=== PATIENT | female | born 1945 | race Caucasian/White ===

== ENCOUNTER 2018-10-29 21:04 | Inpatient (IN) ==
[2018-10-29] MEDS ORDERED: ASPIRIN PR ONE (21:21)
[2018-10-29] MEDS ORDERED: ASPIRIN PO ONE (21:21)
--- NOTE | 2018-10-29 21:41 | Diag Imaging Result Doc PS360 ---
EXAM: CHEST-2 VIEWS HISTORY: SOB TECHNIQUE: Chest, two views COMPARISON: 08/21/2017 FINDINGS: The lungs are hyperexpanded. The heart is mildly enlarged. No pulmonary edema. Small infiltrate and atelectasis in the left base with a tiny effusion. IMPRESSION: Cardiomegaly with atelectasis and a tiny infiltrate in the left base. Electronically signed by Carmelo Cole 10/29/2018 9:39 PM
[2018-10-29 22:45] LABS: BASO# 0.03 X1000 (0.0-0.2); BASO% 0.5 % (0.0-0.8); EOS# 0.07 X1000 (0.0-0.7); EOS% 1.2 % (0.0-10.0); HEMATOCRIT 39.2 % (37.0-47.0); LYMPH% 19.9 % (20.5-51.1); MCH 32.2 PG (27-31); MCHC 33.2 g/dL (33-37); MONO# 0.74 X1000 (0.11-0.59); MONO% 12.3 % (1.7-9.3); MPV 10.7 FL (7.4-10.4); NEUT% 66.1 % (42.2-75.2); PLT 307 X1000 (130-400); RBC 4.04 XMIL (4.2-5.4); RDW 15.9 % (11.5-14.5); WBC 6.04 X1000 (4.8-10.8)
[2018-10-29 22:54] LABS: INR 1.1; PROTIME 15.1 Seconds (11.0-16.0)
[2018-10-29 22:55] LABS: PTT 34.1 Seconds (22.3-41.8)
[2018-10-29 23:06] LABS: AGAP 12; ALB/GLOB RATIO 1.9; ALBUMIN 4.2 g/dL (3.5-5.0); ALKALINE PHOSPHATASE 102 U/L (32-104); BUN 16 mg/dL (8-22); CALCIUM 9.4 mg/dL (8.8-10.2); CHLORIDE 106 mmol/L (98-107); CK PROFILE 54 U/L (24-173); COSMO 288; CREATININE 0.6 mg/dL (0.5-0.9); ESTIMATED GFR > 60; GLUCOSE 136 mg/dL (70-104); GOT 21 U/L (10-30); GPT 27 U/L (10-36); POTASSIUM 5.1 mmol/L (3.5-5.1); SODIUM 143 mmol/L (136-145); TCO2 25 mmol/L (25-35); TOTAL BILIRUBIN 0.35 mg/dL (0.20-1.00); TOTAL PROTEIN 6.4 g/dL (6.3-8.3)
[2018-10-30] MEDS ORDERED: LASIX IV ONE (00:11)
--- NOTE | 2018-10-30 00:12 | PROVIDER DOCUMENTATION ---
This chart was entered by Cara Jama Scribe, acting as scribe for Ziggy Clayton MD. HPI-Respiratory General - General Chief Complaint: Shortness of Breath Stated Complaint: sob Time Seen by Provider: 10/29/18 21:33 Source: patient Allergies/Adverse Reactions: Patient Allergies Allergy/AdvReac Type Severity Reaction Status Date / Time No Known Allergies Allergy Verified 10/29/18 21:20 Home Medications: Home Medication List Medication Instructions Recorded Confirmed Last Taken Type Lisinopril 1 tab PO DAILY 10/29/18 10/29/18 Unknown History Metformin HCl 1 tab PO BID 10/29/18 10/29/18 Unknown History Pravastatin Sodium 1 tab PO QPM 10/29/18 10/29/18 Unknown History Sumatriptan [Imitrex] 1 tab PO DIRECTED PRN 10/29/18 10/29/18 Unknown History Venlafaxine HCl [Venlafaxine HCl 1 cap PO DAILY 10/29/18 10/29/18 Unknown History ER] Verapamil HCl [Verapamil Sr] 1 cap PO BID 10/29/18 10/30/18 Unknown History Aspirin 1 tab PO DAILY 10/30/18 10/30/18 Unknown History Buspirone HCl 1 tab PO BID 10/30/18 10/30/18 Unknown History Promethazine [Phenergan] 1 tab PO Q4-6H PRN PRN 10/30/18 10/30/18 Unknown History Trazodone [Desyrel] 1 tab PO QHS 10/30/18 10/30/18 Unknown History Tretinoin 1 applicatn TOP QHS PRN 10/30/18 10/30/18 Unknown History - History of Present Illness-Resp Nature of Presenting Problem: pt is a 73 yr old female presenting via EMS with 3 day complaint of worsening shortness of breath and bilateral pedal edema. pt reports she was seen by PCP 1 week ago and told to follow up with cardiology, cardiology appointment scheduled for end of month, unable to get in sooner, pt reports over last 3 days she has increasing difficulty breathing, is unable to lie flat, minimal exertion causes increases shortness of breath. pt denies chest pain, fever/chills, admits fatigue Quality of Pain: reports: none Severity in ED: reports: severe Onset/Duration: reports: 1 week ago Timing: reports: getting worse (x 3 days) Exposure: reports: unknown cause Cough Quality/Degree: reports: moderate, productive cough Episode Frequency: rare episodes Current Respiratory Medication Therapy: Initiated none Modifying Factors: improves with: exertion (worsens), coughing (worsens), lying down (worsens), rest (no change), sitting upright (improves) Associated Symptoms: reports: cough, shortness of breath, wheezing. denies: chest pain/soreness, fever/chills, heart racing, hurts to breathe Similar Symptoms Previously?: Yes Recently seen or treated by another doctor?: Yes (seen by PCP 1 week ago for similar) Review of Systems - Adult - REVIEW OF SYSTEMS - ADULT Constitutional: denies: fever, fatique Eyes: denies: blurred vision, double vision Ears, Nose, Mouth & Throat: reports: no symptoms reported Cardiovascular: reports: edema, orthopnea. denies: chest pain, palpitations, syncope Respiratory: reports: cough, dyspnea on exertion, shortness of breath Gastrointestinal: reports: no symptoms reported Genitourinary: reports: no symptoms reported Musculoskeletal: reports: no symptoms reported Integumentary: reports: no symptoms reported Neurological: reports: no symptoms reported Psychiatric: reports: no symptoms reported Endocrine: reports: no symptoms reported Hematologic/Lymphatic: reports: no symptoms reported Allergic/Immunologic: reports: no symptoms reported All Other Systems: Reviewed and Negative Past History - Adult - PAST MEDICAL HISTORY-ADULT Review of Records: reports: Old Records Reviewed, Nursing Assessment Review, Medications Reviewed, Social history reviewed & non-contributory. Major Childhood Illnesses: reports: denies history Cardiovascular: reports: HTN, hyperlipidemia Respiratory: reports: denies history Gastrointestinal: reports: denies history Obstetrical/Gynecological: reports: denies history Genitourinary: reports: denies history Musculoskeletal: reports: denies history Neurological: reports: denies history Endocrine/Immune: reports: Diabetes Other Conditions: reports: denies history - PRIOR SURGERIES/PROCEDURES Surgical/Procedure History: reports: tonsillectomy, orthopedic (extremity) - IMMUNIZATION STATUS Childhood Immunizations: See Nurse Assessment Flu Vaccine: See Nurse Assessment - FAMILY HISTORY Family History: reviewed, not pertinent - SOCIAL HISTORY Smoking: cigarettes Provider spent 3-5 mins advising pt. on dangers of tobacco.: Discussed manners to quit use, and f/u contacts for add'l counseling. Substance Use: denies Living Situation: alone Physical Exam-General - PHYSICAL EXAM-ADULT Initial Vital Signs Reviewed: Yes - CONSTITUTIONAL General Appearance: appears well, alert, no apparent distress - EYES Eyes: PERRL/EOMI - HEAD, EARS, NOSE, MOUTH & THROAT HENMT: normocephalic/atraumatic, moist mucous membranes, normal ENT inspection - NECK Neck: non-tender, full range of motion, supple, normal inspection - RESPIRATORY Respiratory: chest non-tender, decreased breath sounds, rhonchi (coarse), dull on percussion, prolonged expiration, increased rate - CARDIOVASCULAR Cardiovascular: normal peripheral pulses, tachycardia - GASTROINTESTINAL (ABDOMEN) Abdominal Exam: normal bowel sounds, non tender, soft - LYMPHATIC Lymphatic: no adenopathy - MUSCULOSKELETAL Back Exam: normal inspection, no CVA tenderness, no vertebral tenderness Extremity: normal range of motion, non-tender, pedal edema (3+pitting edema bilaterally) - SKIN Integumentary: normal color, normal turgor, warm/dry - NEUROLOGIC Neurologic: grossly normal - PSYCHIATRIC Psych/Mental Status: normal mood/affect Progress - PLAN OF CARE/RESULTS Progress/Plan/Lab Results: Vital Signs - 8 hr 10/29/18 21:12 10/29/18 21:13 10/29/18 21:17 Temperature 98.9 F Pulse Rate 105 H Respiratory Rate 19 Blood Pressure 134/85 134/85 O2 Sat by Pulse Oximetry 93 L 93 L 93 L 10/29/18 21:20 10/29/18 21:30 10/29/18 21:40 Temperature Pulse Rate 103 H 104 H 105 H Respiratory Rate 22 26 H 30 H Blood Pressure O2 Sat by Pulse Oximetry 98 98 90 L 10/29/18 21:50 10/29/18 22:00 10/29/18 22:01 Temperature Pulse Rate 105 H 107 H 105 H Respiratory Rate 30 H 31 H 25 H Blood Pressure 123/78 O2 Sat by Pulse Oximetry 97 95 98 10/29/18 22:10 10/29/18 22:20 10/29/18 22:30 Temperature Pulse Rate 108 H 105 H 107 H Respiratory Rate 26 H 38 H 23 Blood Pressure O2 Sat by Pulse Oximetry 97 99 99 10/29/18 22:32 10/29/18 22:40 10/29/18 22:50 Temperature Pulse Rate 105 H 105 H 105 H Respiratory Rate 21 30 H 35 H Blood Pressure 124/70 O2 Sat by Pulse Oximetry 99 98 99 10/29/18 23:00 10/29/18 23:01 10/29/18 23:10 Temperature Pulse Rate 107 H 108 H 109 H Respiratory Rate 31 H 39 H 30 H Blood Pressure 119/93 O2 Sat by Pulse Oximetry 98 97 99 10/29/18 23:20 Temperature Pulse Rate 107 H Respiratory Rate 29 H Blood Pressure O2 Sat by Pulse Oximetry 95 Laboratory Results - last 24 hr 10/29/18 10/29/18 10/29/18 22:35 22:35 22:35 WBC 6.04 RBC 4.04 L Hgb 13.0 Hct 39.2 MCV 97.0 MCH 32.2 H MCHC 33.2 RDW Std Deviation 15.9 H Plt Count 307 MPV 10.7 H Immature Gran % (Auto) 0.0 Neut % (Auto) 66.1 Lymph % (Auto) 19.9 L [place] % (Auto) 12.3 H Eos % (Auto) 1.2 Baso % (Auto) 0.5 Immature Gran # (Auto) 0.00 Neut # (Auto) 4.00 Lymph # (Auto) 1.20 [place] # (Auto) 0.74 H Eos # (Auto) 0.07 Baso # (Auto) 0.03 PT INR PTT (Actin FS) Sodium 143 Potassium 5.1 Chloride 106 Carbon Dioxide 25 Anion Gap 12 BUN 16 Creatinine 0.6 Estimated GFR/1.73 m2 > 60 BUN/Creatinine Ratio 27 Glucose 136 H Calculated Osmolality 288 Calcium 9.4 Total Bilirubin 0.35 AST 21 ALT 27 Alkaline Phosphatase 102 Creatine Kinase 54 Troponin T [id number] Pept 8439 H Total Protein 6.4 Albumin 4.2 Globulin 2.2 Albumin/Globulin Ratio 1.9 10/29/18 10/29/18 22:35 22:35 WBC RBC Hgb Hct MCV MCH MCHC RDW Std Deviation Plt Count MPV Immature Gran % (Auto) Neut % (Auto) Lymph % (Auto) [place] % (Auto) Eos % (Auto) Baso % (Auto) Immature Gran # (Auto) Neut # (Auto) Lymph # (Auto) [place] # (Auto) Eos # (Auto) Baso # (Auto) PT 15.1 INR 1.10 PTT (Actin FS) 34.1 Sodium Potassium Chloride Carbon Dioxide Anion Gap BUN Creatinine Estimated GFR/1.73 m2 BUN/Creatinine Ratio Glucose Calculated Osmolality Calcium Total Bilirubin AST ALT Alkaline Phosphatase Creatine Kinase Troponin T < 0.010 Kgl-[id number] Pept Total Protein Albumin Globulin Albumin/Globulin Ratio Orders Category Date Time Status Cardiac Monitoring DIRECTED Care 10/29/18 21:21 Active Oxygen Therapy- ED Nursing DIRECTED Care 10/29/18 21:21 Active Saline Loc NOW Care 10/29/18 21:21 Active CHEST-2 VIEWS [RAD] Stat Exams 10/29/18 21:21 Completed CBC WITH ELECTRONIC DIFF [HEME] Stat Lab 10/29/18 22:35 Completed CK PROFILE [SP CHEM] Stat Lab 10/29/18 22:35 Completed COMPREHENSIVE METABOLIC PANEL [CHEM] Stat Lab 10/29/18 22:35 Completed PRO B-NATRIURETIC PEPTIDE Stat Lab 10/29/18 22:35 Completed PROTIME WITH INR [COAG] Stat Lab 10/29/18 22:35 Completed PTT [COAG] Stat Lab 10/29/18 22:35 Completed TROPONIN T Stat Lab 10/29/18 22:35 Completed Aspirin Med 10/29/18 21:21 Discontinued 300 mg NC NOW ONE Aspirin Med 10/29/18 21:21 Discontinued 325 mg PO NOW ONE Furosemide [Lasix] Med 10/30/18 00:11 Once 40 mg IV NOW ONE CP/SOB/Palp >45 yrs of Age Stat Oth 10/29/18 21:21 Ordered EKG [EKG] Stat Ther 10/29/18 21:21 Ordered Result Diagrams: 10/29/18 22:35 10/29/18 22:35 - EKG 1 Time of EKG reading by physician:: 22:05 EKG Read and Signed by:: Ziggy Clayton EKG Interpretation (*Must complete 3 of following elements*): Abnormal (septal infarct age undetermined) Rate: 105 Rhythm: sinus tachycardia [place]: normal QRS: normal NC Interval: normal ST Wave: normal Departure - Departure Date of Disposition Decision: 10/30/18 Time of Disposition Decision: 00:12 DIAGNOSIS: CHF exacerbation Qualifiers: Heart failure type: unspecified Qualified Code(s): I50.9 - Heart failure, u nspecified Disposition: ADMITTED INPATIENT 09 Certified Medical Emergency: Emergent Condition: Stable Referrals and Follow-Ups: Ray Dan MD [Primary Care Provider] - - Critical Care Note This patient required my direct & personal management of CC.: No Attestation - Physician/ GARY Attestation Patient care was provided by Advanced Practice Provider:: No The physician spent face to face time with patient:: Yes Advanced Practice Provider documentation review:: Supervising physician onsite and consulted in the evaluation and care of this patient. The physician did have a face to face encounter with the patient. This chart was documented by the indicated scribe, (Cara Jama Scribe) and accurately reflects the services I performed and decisions made by me, Ziggy Clayton MD, as attested by the provider's signature.
[2018-10-30] MEDS: ROCEPHIN 1 GM in NS 50 ML IV SCH (01:14)
[2018-10-30] MEDS: ZITHROMAX 500 MG/NS 500 MG/250 ML IVPB IV SCH (02:14)
[2018-10-30] MEDS ORDERED: NICODERM PATCH TD PRN (02:40)
[2018-10-30] MEDS ORDERED: ZOFRAN IV PRN (02:40)
--- NOTE | 2018-10-30 06:19 | HISTORY AND PHYSICAL ---
PRIMARY CARE PROVIDER: Dr. Ray Dan. CHIEF COMPLAINT: Shortness of breath. HISTORY OF PRESENT ILLNESS: Ms Dubose is a 73-year-old female with a past medical history most notable for hypertension, hyperlipidemia, diabetes mellitus and nicotine dependence. The patient states that for approximately 3 to 4 weeks now that she has been having progressively worsening symptoms of shortness of breath. The patient states that she was seen by Dr. Dan on October 22 and was supposed to have an appointment with Cardiology on November 12. Though she states since her appointment that her symptoms have continued to worsen. She reports shortness of breath at rest as well as orthopnea stating that she is having to prop up with 4 pillows to sleep. She also complains of proximal nocturnal dyspnea, increased fatigue and bilateral lower extremity edema. The patient has been reporting a cough since that time that is intermittent, is productive with clear sputum tough she denies any fever, body aches, or chills. The patient states that she did have pneumonia in June as well as an upper respiratory infection in August for which she did complete an antibiotic treatment for though since that time has not had any other diagnosed respiratory infections. The patient states that in June and August she had been placed on oral steroids as well and in June did begin to have epigastric pain that was a discomfort type pain in nature. She also reported that she had been having some nausea and vomiting and the feeling as though food was getting stuck. The patient states that her nausea and vomiting have improved though she occasionally still has the epigastric pain. She still is describing it as "just a discomfort." It is nonradiating. She states that it comes on at predictable times and is not preceded by anything that she has noticed though she still does report occasional nausea. She denies any recent medication changes except for that approximately 3 weeks ago she stopped taking her Ditropan. The patient did report that while she took this she noticed that she did have a little decrease in the amount of urine she normally puts out. The patient denies any steroid use since August. She denies any headache, dizziness, chest pain. She is reporting the previously described epigastric pain though he is denying any abdominal pain except for she stated that her abdomen did feel little more swollen than normal. She denied any diarrhea, hematochezia or melena. She denies any dysuria and other than her swelling in her bilateral lower extremities and a new onset of reddish discoloration in her bilateral toes, she denies any pain numbness or tingling in extremities. Upon evaluation in the ER, the patient did arrive via EMS for dyspnea. She did report that at home with exertion her oxygen saturation per a personal pulse oximeter was dropping into the 80s. Upon EMS arrival, her O2 saturation was 97% though I am unsure if this was documented with the supplemental oxygen or not. This was not specified in the report. Though here on room air she was noted to have O2 saturation of 93%. The patient was noted to be dyspneic. Even upon my examination with supplemental oxygen, the patient was a dyspneic as well and tachypneic though was able to speak in full sentences. She did have a dry cough noted though lung sounds were clear to auscultation in bilateral full flores. The patient did have 2+ pitting edema in bilateral lower extremities from just inferior to the knee down. A chest x-ray performed in the ER cardiomegaly with atelectasis and a tiny infiltrate in the left lung base. Laboratory results revealed an elevated proBNP at 8439. CK and troponin were within normal limits. She had no leukocytosis noted and she has been afebrile since arriving to the ER though has been slightly tachycardic with heart rate that has remained in the low 100s. At this time the patient will be admitted for possible new onset congestive heart failure and a possible left lower lobe pneumonia. REVIEW OF SYSTEMS: A 14 point review of systems was conducted with the patient and all were negative except for pertinent positives mentioned in above HPI. PAST MEDICAL HISTORY: 1. Hypertension. 2. Hyperlipidemia. 3. Diabetes mellitus type 2. 4. Migraines. 5. Insomnia. 6. Depression. 7. Anxiety. 8. Nicotine dependence. 9. Kidney stones. PAST SURGICAL HISTORY: 1. Tonsillectomy. 2. Kidney stone removal. 3. Right ankle surgery secondary to ankle fracture. SOCIAL HISTORY: The patient is a current 1 pack per day smoker and has smoked since 1979. She denied any alcohol or illicit drug use. She does live alone in an apartment in [place] though states that she does have friends in other apartments that do help her when needed. FAMILY HISTORY: Positive for her father having a history of diabetes mellitus, heart disease and hypertension. Her mother had a history of heart disease and bladder cancer. ALLERGIES: Patient has no known allergies. HOME MEDICATIONS: 1. Aspirin 81 mg p.o. daily. 2. Buspirone 15 p.o. b.i.d. 3. Lisinopril 40 mg p.o. daily. 4. Metformin 1000 mg p.o. b.i.d. 5. Pravastatin 20 mg p.o. at bedtime. 6. Phenergan 25 mg p.o. q.4-6 hours p.r.n. for nausea. 7. Imitrex 25 mg tablet p.o. p.r.n. as directed for migraines. 8. Trazodone 100 mg p.o. at bedtime. 9. Effexor XR 150 mg capsule p.o. daily. 10. Verapamil sustained release 240 mg capsule p.o. b.i.d. DIAGNOSTIC DATA: White blood cell count is 6040, hemoglobin 13, hematocrit 39.2, platelet count is 307. PT 15.1, INR 1.1, PTT is 34.1. Sodium 133, potassium 5.1, chloride 106, serum bicarbonate is 25, BUN 16, creatinine 0.6, glucose 136, calcium 9.4. Liver function tests within normal limits. CK 54. Troponin less than 0.01. ProBNP is 8439. EKG showed sinus tachycardia at a rate of 105 with a QTc of 481. Chest 2 view showed cardiomegaly with atelectasis and a tiny infiltrate in the left lung base. PHYSICAL EXAMINATION: VITAL SIGNS: Temperature 98.9 degrees, heart rate 107, respiration 26, blood pressure 119/93, oxygen saturation is 97% nasal cannula at 2 L. GENERAL: Ms. Dubose is a 73-year-old female. She is resting in the ER stretcher. Though she still did appear to be slightly dyspneic and tachypneic she was not in any respiratory distress. The stress. She was able to speak in full sentences. She was alert and oriented x4. She was able to answer questions appropriately. HEENT: Head is atraumatic, normocephalic. Pupils were equal, round, reactive to light, were 3 mm bilaterally and brisk. Oral mucosa is moist. Oropharynx is clear. NECK: Supple. Trachea midline. CARDIOVASCULAR: Patient has S1, S2 present. No murmurs, gallops or rubs appreciated with a slightly tachycardic rate that is regular. PULMONARY: Patient has symmetrical chest expansion bilaterally. Lung sounds clear to auscultation in bilateral full flores. ABDOMEN: Soft, did not appear to be distended. She only reported some very mild tenderness upon palpation of epigastric area where she has been reporting intermittent pain that has been going on since June. Bowel sounds were present in all 4 quadrants, were normoactive. EXTREMITIES: No cyanosis or clubbing noted. The patient did have 2+ pitting edema noted in bilateral lower extremities just below the knees bilaterally down. Radial and pedal pulses were 2+ bilaterally. Pulse, motor and sensory were intact in all extremities. Patient did have reddish discoloration noted to the toes of bilateral feet though capillary refill in this area was less than 3 seconds. INTEGUMENTARY: The patient's skin is pink, warm, and dry. NEUROLOGICAL: Patient is alert and oriented to person, place, time and situation. She is able to move all extremities. There do not appear to be any focal neurological deficits noted. ASSESSMENT AND PLAN: 1. Possible new onset congestive heart failure. The patient has reported for the past 3 to 4 weeks she has had shortness of breath which was initially upon exertion but now is at rest. She is reporting orthopnea, paroxysmal nocturnal dyspnea and bilateral lower extremity edema. She does have cardiomegaly and atelectasis noted on chest x-ray as well as pitting edema and elevated proBNP. We are going to provide her with diuresis. Start diuretics of Lasix 40 mg IV q.12 hours. We will closely monitor her response to this. We will do strict intake and output and daily weights. We will continue with a series of cardiac enzymes. Repeat EKG in the morning as well as an echocardiogram. We have placed a consult with Dr. Lima with Cardiology and we will await further evaluation and further recommendations for management. She will be placed on continuous cardiac telemetry and vital signs q.4 hours. 2. Possible left lower lobe pneumonia. Patient has been reporting shortness of breath and productive cough with clear sputum. Chest x-ray did mention a tiny in the left lung base. We will go ahead and cover her for possible pneumonia with antibiotics of Rocephin and azithromycin. We will continue with incentive spirometry, scheduled Atrovent and Xopenex treatments and continue to follow. 3. Dyspnea. This may be multifactorial. The patient is a long-time smoker. This could be a combination of COPD as well as respiratory symptoms from possible new onset CHF and possible left lower lobe pneumonia. We will continue treatment as mentioned above for numbers 1 and 2. She will remain on supplemental oxygen at this time. We will continue with diuresis with Lasix as well as scheduled breathing treatment and we will monitor her response and continue to follow closely. 4. Hypertension. We will continue her regular prescribed medicine of verapamil. 5. Diabetes mellitus type 2. We will continue her metformin. 6. Nicotine dependence. We did primary substance abuse counselor patient for several minutes on the importance of smoking cessation. She does report that she does want to try to quit smoking. We have placed an order for a NicoDerm patch and we will continue to primary substance abuse counselor her on smoking cessation throughout her admission and upon discharge. 7. Venous thromboembolism prophylaxis. This will be provided with Lovenox 40 mg subcutaneous q.a.m. The patient will be placed on the medical floor with telemetry. She will have vital signs q.4 hours. We will do strict intake and output. We will repeat a BMP and magnesium in the morning. Further orders and recommendations pending hospital course, diagnostic studies, and physician evaluations. Dictated by GREGORY Cespedes for Angel Trotter MD cc: Angel Trotter MD
[2018-10-30] MEDS: PRILOSEC PO SCH (06:27)
[2018-10-30] MEDS: LOVENOX SUBQ SCH (06:28)
[2018-10-30 07:19] LABS: AGAP 14; BUN 18 mg/dL (8-22); CALCIUM 9.1 mg/dL (8.8-10.2); CHLORIDE 105 mmol/L (98-107); CK PROFILE 58 U/L (24-173); COSMO 290; CREATININE 0.7 mg/dL (0.5-0.9); ESTIMATED GFR > 60; GLUCOSE 180 mg/dL (70-104); MAGNESIUM 1.8 mg/dL (1.5-2.7); POTASSIUM 4.7 mmol/L (3.5-5.1); SODIUM 142 mmol/L (136-145); TCO2 23 mmol/L (25-35)
--- NOTE | 2018-10-30 07:26 | EKG Report ---
Test Performed on : 10/29/2018 10:04:54 PM Test Reason : SOB Blood Pressure : / mmHG Vent. Rate : 105 BPM Atrial Rate : 105 BPM P-R Int : 142 ms QRS Dur : 096 ms QT Int : 364 ms P-R-T Axes : 052 -03 057 degrees QTc Int : 481 ms Sinus tachycardia. Septal infarct , age undetermined Abnormal ECG No previous ECGs available Unconfirmed Result
--- NOTE | 2018-10-30 08:16 | EKG Report ---
Test Performed on : 10/30/2018 08:04:34 AM Test Reason : CHF Exacerbation Blood Pressure : / mmHG Vent. Rate : 103 BPM Atrial Rate : 103 BPM P-R Int : 152 ms QRS Dur : 094 ms QT Int : 388 ms P-R-T Axes : 076 064 006 degrees QTc Int : 508 ms Sinus tachycardia. Septal infarct (cited on or before 29-OCT-2018) Abnormal ECG When compared with ECG of 29-OCT-2018 22:04, (Unconfirmed) Questionable change in QRS axis Nonspecific T wave abnormality, improved in Inferior leads Confirmed by Luis Felipe EMERSON, John Alvarez ([id number]) on 10/30/2018 10:57:39 AM
--- NOTE | 2018-10-30 08:42 | HISTORY AND PHYSICAL ---
ADDENDUM This is a [id number] encounter note with GREGORY Cespedes The patient came in with shortness of breath. She has been having shortness of breath for several days. Initially, dyspnea on exertion, but then subsequently worse after that. She has no cardiac history that she is aware of. She had seen her PCP within the week, Dr. Dan, and he had arranged follow up with Cardiology for a chest pain evaluation, but she describes that since she has been on a long course of steroids she was on back in August that she has developed kind of dyspepsia/epigastric discomfort, and dysphagia essentially, which sounds like she may have a stricture but, in any case, she describes bilateral lower extremity edema up to her knees and sometimes up to her thighs. Today on exam, 1). She looks visibly short of breath. 2). She denies cough. She does not have rhonchi, wheezing, or rales, somewhat diminished at the bases. Her chest x-ray looks like cardiomegaly, interstitial edema to me, and a left basilar infiltrate with a tiny effusion, although Dr. Cole interpretation does not say pulmonary edema. Her proBNP is 8439. She has no white count. No fever. PLAN: 1. Clinically, looks like a congestive heart failure exacerbation, possibly associated with cor pulmonale. We have placed her on diuretics. Cardiology has been consulted. If her echocardiogram is normal, there may not be more workup, but we will continue to follow. Serial enzymes have been ordered. 2. Likely chronic obstructive pulmonary disease exacerbation with early bronchitis, early pneumonitis. Her chest x-ray describes infiltrate, but she has no white count, no fever, no productive cough. I will go ahead and initiate antibiotics, get a procalcitonin level. If repeat films are negative, antibiotics can probably be stopped shortly thereafter, but she does look visibly dyspneic. We talked at length about tobacco cessation. She has tried Chantix in the past and, apparently, did not work for her. We discussed other options, NicoDerm, Wellbutrin, and we will follow. This is a dywi-lk-stin encounter note with GREGORY Cespedes. cc: MD Ray Kessler MD
[2018-10-30] MEDS: HUMULIN R SUBQ SCH ×3 (08:51→17:06)
[2018-10-30] MEDS ORDERED: VERAPAMIL HCL PO SCH (09:00)
[2018-10-30] MEDS ORDERED: METFORMIN HCL PO SCH (09:00)
[2018-10-30] MEDS: GLUCOPHAGE PO SCH ×2 (10:31→21:14)
[2018-10-30] MEDS: BUSPAR PO SCH ×2 (10:31→21:15)
[2018-10-30] MEDS: ASPIRIN PO SCH (10:31)
[2018-10-30] MEDS: ISOPTIN SR PO SCH (10:31)
[2018-10-30] MEDS: EFFEXOR XR PO SCH (10:32)
[2018-10-30] MEDS: TYLENOL PO PRN ×2 (10:51→21:14)
[2018-10-30] MEDS: XOPENEX NEB INH SCH ×3 (11:03→21:07)
[2018-10-30] MEDS: ATROVENT NEB INH SCH ×3 (11:03→21:07)
[2018-10-30 12:06] LABS: ALLEN TEST YES; BE -5.2 mmoll (-3.0-3.0); BLOOD TYPE ARTERIAL; HCO3-(ACT) 20.8 mmoll (20.0-26.0); METHB 0.5 % (0.0-1.5); O2(CT) 17.1 mL/dL (15.0-23.0); O2HB 95.9 % (95.0-99.0); PCO2(98.6) 23 mmHg (35-45); PO2(98.6) 92 mmHg (60-100); SAMPLE BLOOD; SAO2 97.4 % (95.0-100.0); THB 12.6 g/dL (11.5-17.4); pH(98.6) 7.47 (7.35-7.45)
[2018-10-30 12:07] LABS: MODALITY CANNULA
[2018-10-30] MEDS: LASIX IV SCH (13:22)
[2018-10-30] MEDS: SOLU-MEDROL IV SCH ×2 (13:22→21:14)
--- NOTE | 2018-10-30 13:27 | Diag Imaging Result Doc PS360 ---
EXAM: CT ANGIOGRM PULMONARY ARTERIES HISTORY: chest pain TECHNIQUE: CT chest with intravenous contrast. Pulmonary arterial protocol with MIP images. COMPARISON: None. FINDINGS: There is normal opacification of the pulmonary arteries and their major branches. The heart is enlarged and there is at least mild pulmonary edema. There are small bilateral pleural effusions. The one on the right measures 2.0 cm posteriorly and inferiorly in the midline where is the one on the left measures 1.5 cm. Mildly prominent mediastinal nodes. There is a 1.2 cm nodule in the right lower lobe. There is basilar atelectasis as well as infiltrates inferiorly in the lingular segment of the left upper lobe. IMPRESSION: 1.No pulmonary emboli 2.Congestive failure with cardiomegaly, pulmonary edema, and small pleural effusions 3.Basilar atelectasis 4.Left upper lobe infiltrates 5.Right lower lobe lung nodule This exam was performed using automated exposure control, adjustment of mA or kV according to patient size, and/or use of iterative reconstruction technique. Electronically signed by Carmelo Cole 10/30/2018 1:25 PM
--- NOTE | 2018-10-30 13:52 | PROGRESS NOTE ---
DATE: 10/30/2018 SUBJECTIVE: This morning, Ms. Dubose refers to continue having some shortness of breath. She said the swelling in her lower extremities is getting better. OBJECTIVE: Vital signs: Blood pressure is 115/76, pulse of 102, respirations 22, temperature 98.2 degrees. General: Ms. Dubose is a 73-year-old female. She is in bed. She was in a tripod position. She seems in some respiratory distress. HEENT: Mucosa is pink and moist. Anicteric but there is some cyanosis in both upper and lower extremities. Respiratory: Air entry is bilaterally reduced. There is diffuse wheezing in both lung flores. There is also prolonged expiratory phase of respiration. She did not hear any crackles. Cardiovascular: Regular rate and rhythm. No murmurs. Abdomen: Soft, distended, nontender. Extremities: Trace pedal edema. Remarkable cyanosis. Musculoskeletal: Chest has a barrel shape. LABORATORY DATA: CBC is reviewed from yesterday, unremarkable. Chemistry this morning is unremarkable. Troponins are negative. EKG has been reviewed. A chest x-ray yesterday shows cardiomegaly with atelectasis and tiny infiltrate in the left base. ASSESSMENT: 1. Hypoxemic respiratory failure. I think the patient does have undiagnosed chronic obstructive pulmonary disease which she is in exacerbation. I have started her on steroids. She is already on antibiotics and bronchodilation therapy. We will get also Pulmonary Medicine to evaluate her. 2. Lower extremity edema. The patient also has positive jugular venous distention with a history of possible chronic obstructive pulmonary disease. I think Ms. Dubose has cor pulmonale. She is currently on very low-dose diuretic therapy. We will continue on that. Echocardiogram has been ordered. We will follow up on the results. 3. Previous smoker noted. 4. Dyslipidemia. The patient is on statin medication. So this morning we are going to do a CTA of the lungs to rule out any PE, but also to have a better anatomy of the lung structures. I think Ms. Dubose has chronic obstructive pulmonary disease possibly complicated with cor pulmonale. Echocardiogram is pending. We will get Pulmonary Medicine to also evaluate Ms. Dubose. She is currently on antibiotics and bronchodilation therapy. I have added steroids. She is also getting incentive spirometer and respiratory therapy. cc: Kurt Dietz MD
[2018-10-30] MEDS: DUONEB (A & A) INH PRN (15:20)
[2018-10-30] MEDS: DESYREL PO SCH (21:15)
[2018-10-30] MEDS: PRAVACHOL PO SCH (21:15)
--- NOTE | 2018-10-30 22:19 | CONSULTATION ---
DATE OF CONSULTATION: 10/30/2018 IMPRESSIONS: 1. Hypoxemic respiratory failure, probably multifactorial, with chronic obstructive pulmonary disease, congestive heart failure, and possible pneumonia. 2. Chronic obstructive pulmonary disease. 3. Hypertension. 4. Type 2 diabetes mellitus. 5. Hyperlipidemia. 6. History of longstanding cigarette use, discontinued 1 year ago. RECOMMENDATIONS: 1. Diurese, as you are doing. 2. Treat perceived COPD exacerbation and possible pneumonia. 3. Echocardiography. 4. Serial cardiac enzymes. 5. Further diagnostic studies to follow. HISTORY: This 73-year-old white female, with past history of COPD, hypertension, type 2 diabetes mellitus, hyperlipidemia, as well as previous cigarette use, was admitted to emergency room with progressive dyspnea. She reports that she has had progressive dyspnea symptoms for about 10 days. The symptoms initially were not as severe. She describes exertional shortness of breath. She was scheduled for outpatient evaluation. Over the last few days, her dyspnea symptoms have gotten progressively worse. She has had some orthopnea. There has been no chest pain. She has had some cough which has been productive of white sputum. She is not aware of any fever. She was noted to have reduced oxygen saturation by home health nurse and referred to the emergency room. She was found to be have hypoxemia and started on supplemental oxygen. Clinical data suggested COPD, possible pneumonia, and congestive heart failure. She is being diuresed and treated with bronchodilator inhalers as well as parental antibiotics. She already reports improvement. PAST MEDICAL HISTORY: 1. Hypertension. 2. Type 2 diabetes mellitus. 3. Hyperlipidemia. 4. Chronic obstructive pulmonary disease. 5. Anxiety/depression. 6. Nephrolithiasis. PAST SURGICAL HISTORY: Includes: 1. Tonsillectomy. 2. Removal of kidney stone. 3. Unspecified right ankle surgery. ALLERGIES: She has no known drug allergies. MEDICATIONS PRIOR TO ADMISSION: As listed. SOCIAL HISTORY: She is retired and lives alone. She previously smoked 1 pack of cigarettes per day for about 28 years, and discontinued this 1 year ago. She does not use alcohol. FAMILY HISTORY: Negative for premature coronary disease. REVIEW OF SYSTEMS: Pulmonary: Noteworthy for dyspnea as well as cough productive of white sputum. Gastrointestinal: Noncontributory. Constitutional: Noncontributory. Remainder of review of systems negative/noncontributory with 14 total systems reviewed. PHYSICAL EXAMINATION: General: This is a thin, elderly white female in no distress. Vital Signs: Blood pressure 138/60, heart rate 104, oxygen saturation 96% on nasal cannula oxygen. HEENT: Extraocular movements intact. Mucous membranes are moist. Neck: Supple. No jugular venous distention. There are no carotid bruits. Chest: Clear to auscultation. Cardiac: Reveals a regular rate and rhythm without appreciable murmur or gallop. Abdomen: Soft. Bowel sounds are normal. Extremities: Demonstrate trace ankle edema. Neurologic: Reveals her to be alert and fully oriented. Speech is fluent. She moves all 4 extremities equally well. Skin: Warm and dry. Psychiatric: Reveals her mood to be appropriate. 12 lead EKG demonstrates sinus tachycardia and nonspecific T-wave abnormality. Laboratory data includes a white blood cell count of 6.04, hematocrit 39.2, hemoglobin 13.0, platelet count 307,000. Arterial blood gas: pH 7.47, pCO2 23, pO2 92, on nasal cannula oxygen at 3 L/minute. Sodium 142, potassium 4.7, chloride 105, carbon dioxide 23, BUN 18, creatinine 0.7, glucose 180. Initial troponin less than 0.01. Followup troponin less than 0.01. Pro B- natriuretic peptide level 8439. cc: Renny Lima MD
--- NOTE | 2018-10-30 23:00 | PULMONOLOGY CONSULTATION ---
DATE: 10/30/2018 REQUESTING PHYSICIAN: Dr. Dietz. REASON FOR CONSULTATION: COPD. HISTORY OF PRESENT ILLNESS: Ms. Dubose is a 73-year-old white female with a greater than 50 pack year history for tobacco (nonsmoker times greater than 1 year), COPD without formal evaluation, who reports she has been on steroids intermittently for the last 3 to 4 months. She denies prior oxygen requirements. She did report that she checked her oxygen level using a friend's oximeter on the day of admission and it was in the low 70s. The patient presented to the emergency room with increasing lower extremity edema and increasing shortness of breath. She has a cardiology evaluation pending as an outpatient, but did not make it to that visit. PAST MEDICAL HISTORY/PROBLEM LIST: 1. Diabetes mellitus. 2. Hypertension. 3. Dyslipidemia. 4. Depression/anxiety disorder. 5. Insomnia. 6. History of nephrolithiasis. 7. Status post right ankle surgery secondary to fracture. SOCIAL HISTORY: The patient reports she has stopped smoking 1 to 2 years ago. She denies alcohol use. FAMILY HISTORY: Positive for bladder cancer, heart disease, and diabetes mellitus. PHYSICAL EXAMINATION: General: Reveals a thin, white female, resting comfortably in her bed, in no distress. Vital signs: BP 138/60, heart rate 104, respiratory rate 22, oxygen saturation 96% on 3 L per nasal cannula. HEENT: Pupils are equal and reactive. Oropharynx is clear. Neck: Reveals increased AP diameter with diffuse wheeze. Cardiac: S1, S2. Abdomen: Soft. Extremities: Reveals peripheral cyanosis. LABORATORIES: Chest x-ray reveals cardiomegaly, significant increase in AP diameter with flattening of diaphragms, atelectasis left mid lung zone. CT angiogram reveals no evidence of pulmonary emboli. She has mild pulmonary edema with bilateral pleural effusions. Cardiomegaly. Solitary pulmonary nodule right lower lobe. Arterial blood gas reveals a pH of 7.47, pCO2 of 23, PO2 of 92. Carboxyhemoglobin level is normal. Lactate 5.00. IMPRESSION: 1. A 73-year-old with chronic obstructive pulmonary disease. 2. Chronic obstructive pulmonary disease exacerbation. 3. Peripheral cyanosis. 4. Cardiomegaly. 5. Pulmonary edema. 6. Fluid overload. 7. Pleural effusions. DISCUSSION: A 73-year-old with significant COPD outlined above. She is not currently hypoxemic or polycythemic, but does have some peripheral cyanosis. This may be related to vascular disease. RECOMMENDATIONS: 1. Agree with treatment of COPD exacerbation as you are doing. 2. Diuresis as tolerated. 3. Continue oxygen to maintain saturation greater than 90%. 4. Discontinue nicotine replacement therapy. Patient reports she has not smoked in greater than a year. 5. Agree with Cardiology evaluation with echocardiogram. This was scheduled as an outpatient. cc: Freedom Penny MD
--- NOTE | 2018-10-30 23:29 | ECHO REPORT ---
ORDER DATE: 10/30/2018 MEASUREMENTS: Septal thickness 1.1, posterior wall thickness 1.0, left ventricular internal diameter diastole 5.4, left ventricular internal mammary systole 5.0, aortic root 3.5. SUMMARY: 1. Fair quality study. Intravenous echo contrast agent Optison was utilized to enhance endocardial definition. 2. Very mild sclerosis of trileaflet aortic valve demonstrated with normal aortic valve opening evident. The mitral, tricuspid, and pulmonic valves are without evidence of structural abnormality with moderate to severe mitral regurgitation, mild to moderate tricuspid regurgitation, and trace pulmonic insufficiency. The estimated systolic PA pressure by Doppler is 45 mmHg, suggesting mild pulmonary hypertension. The aortic root is normal size. 3. Mild left ventricular enlargement suggested on 2-dimensional images. Left ventricular wall thickness appears to be normal. The estimated left ventricular ejection fraction is approximately 20% in the setting of severe global hypokinesis. The left atrium is mildly enlarged. The right atrium and right ventricle are normal in size. 4. No pericardial effusion. 5. Appearance of inferior vena cava suggests normal central venous pressure. CONCLUSIONS: 1. Very mild aortic valve sclerosis without stenosis. 2. Moderate to severe mitral regurgitation. 3. Mild to moderate tricuspid regurgitation with mild pulmonary hypertension by Doppler. 4. Mild left ventricular enlargement with estimated left ventricular ejection fraction approximately 20%. 5. Mild left atrial enlargement. cc: Renny Lima MD
[2018-10-31] MEDS: HUMULIN R SUBQ SCH ×5 (01:19→22:54)
[2018-10-31] MEDS: ROCEPHIN 1 GM in NS 50 ML IV SCH (01:36)
[2018-10-31] MEDS: LASIX IV SCH ×2 (01:36→13:35)
[2018-10-31] MEDS ORDERED: EPINEPHRINE SYRINGE ONE (02:30)
[2018-10-31] MEDS ORDERED: SODIUM BICARBONATE 8.4% ONE (02:30)
[2018-10-31 03:16] LABS: ALLEN TEST YES; BE -2.3 mmoll (-3.0-3.0); BLOOD TYPE ARTERIAL; METHB 0.7 % (0.0-1.5); O2(CT) 15.5 mL/dL (15.0-23.0); O2HB 93.2 % (95.0-99.0); PCO2(98.6) 29 mmHg (35-45); PO2(98.6) 70 mmHg (60-100); SAMPLE BLOOD; SAO2 94.7 % (95.0-100.0); THB 11.8 g/dL (11.5-17.4); pH(98.6) 7.46 (7.35-7.45)
[2018-10-31 03:17] LABS: MODALITY CANNULA
[2018-10-31] MEDS: ZITHROMAX 500 MG/NS 500 MG/250 ML IVPB IV SCH (05:22)
[2018-10-31] MEDS: PRILOSEC PO SCH ×2 (05:25→10:18)
[2018-10-31] MEDS: LOVENOX SUBQ SCH (05:25)
[2018-10-31] MEDS: SOLU-MEDROL IV SCH ×2 (05:26→13:35)
--- NOTE | 2018-10-31 07:03 | Diag Imaging Result Doc PS360 ---
EXAM: CHEST-PORTABLE 10/31/2018 HISTORY: dyspnea TECHNIQUE: AP portable at 0559 COMMENT: The inspiration is less optimal than on 10/29/2018. Considering this there has been no significant change since 10/29/2018. There is atelectatic or fibrotic opacity in the left base which was not present on 08/21/2017. IMPRESSION: Atelectasis versus fibrosis in the left base. Electronically signed by Roshan Graves 10/31/2018 7:01 AM
[2018-10-31 07:12] LABS: HEMOGLOBIN A1C 6.2 % (4.8-6.0)
[2018-10-31 07:22] LABS: AGAP 20; BUN 22 mg/dL (8-22); CALCIUM 8.7 mg/dL (8.8-10.2); CHLORIDE 99 mmol/L (98-107); COSMO 286; CREATININE 0.9 mg/dL (0.5-0.9); ESTIMATED GFR > 60; GLUCOSE 156 mg/dL (70-104); MAGNESIUM 1.6 mg/dL (1.5-2.7); POTASSIUM 3.9 mmol/L (3.5-5.1); SODIUM 140 mmol/L (136-145); TCO2 21 mmol/L (25-35)
[2018-10-31] MEDS: ATROVENT NEB INH SCH ×3 (08:11→20:30)
[2018-10-31] MEDS: XOPENEX NEB INH SCH ×3 (08:11→20:25)
[2018-10-31 08:56] LABS: URINE SOURCE CLEAN CATCH
[2018-10-31] MEDS ORDERED: PRINIVIL PO SCH (09:00)
[2018-10-31] MEDS ORDERED: LISINOPRIL PO SCH (09:00)
[2018-10-31] MEDS ORDERED: ALDACTONE PO SCH (09:00)
[2018-10-31] MEDS ORDERED: TOPROL XL PO SCH (09:00)
[2018-10-31 09:03] LABS: BILIRUBIN URINE NEGATIVE (NEGATIVE); BLOOD URINE NEGATIVE (NEGATIVE); COLOR YELLOW; GLUCOSE URINE NEGATIVE (NEGATIVE); KETONE URINE NEGATIVE (NEGATIVE); LEUKOCYTES URINE NEGATIVE (NEGATIVE); NITRITE URINE NEGATIVE (NEGATIVE); PH URINE 5.5; PROTEIN URINE TRACE mg/dL (NEGATIVE); SP GRAVITY URINE 1.017; TURBIDITY URINE CLEAR (CLEAR); UROBILINOGEN URINE NORMAL (NORMAL)
[2018-10-31 09:05] LABS: UR EPITHELIAL CELLS <10 /HPF (<10); URINE BACTERIA NEGATIVE /HPF; URINE RBC <10 /HPF (<10); URINE WBC <10 /HPF (<10)
[2018-10-31] MEDS: BUSPAR PO SCH ×2 (10:16→21:11)
[2018-10-31] MEDS: ISOPTIN SR PO SCH (10:16)
[2018-10-31] MEDS: ASPIRIN PO SCH (10:17)
[2018-10-31] MEDS: EFFEXOR XR PO SCH (10:17)
[2018-10-31] MEDS: GLUCOPHAGE PO SCH ×2 (10:18→21:11)
[2018-10-31] MEDS ORDERED: PREDNISONE PO SCH (13:45)
[2018-10-31] MEDS ORDERED: MAGNESIUM SULFATE 2 GM/S.W.I. 2 GM/50 ML IVPB IV ONE (14:09)
[2018-10-31] MEDS: DUONEB (A & A) INH PRN (19:00)
--- NOTE | 2018-10-31 19:04 | PROGRESS NOTE ---
DATE: 10/31/2018 SUBJECTIVE: This morning Ms. Dubose was sitting up in a chair eating her breakfast. She refers to be feeling a whole lot better. OBJECTIVE: Vital signs: Blood pressure is 149/134, pulse of 107, respirations 20, temperature is 97.8. The patient was saturating 97% on 3 L. General: Ms. Dubose is a 73-year-old female. She is sitting up in a chair. She does not seem to be in distress . HEENT: Mucosa is pink and moist. Anicteric. Acyanotic. Anicteric. Extremities: The cyanosis in the extremities look significantly improved. Neck: Supple. Still mild JVD. Respiratory: Good air entry, bilaterally reduced. I did not hear any wheezing. There is a prolonged expiratory phase of respiration. Cardiovascular: Regular rate and rhythm. No murmurs, no rubs, no gallops. GI: Abdomen is soft, nontender. Extremities: No pedal edema. 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 No focal neurological deficit. Input and Output: Urine output is 410. CURRENT MEDICATIONS: Have all been reviewed. DIAGNOSTIC STUDIES: A chest x-ray this morning shows atelectasis versus fibrosis in the left base. The lung inspiration looks less optimal. An echocardiogram done yesterday shows an ejection fraction of 20% in the setting of severe global hypokinesis, but the right atrium and ventricle seems to be in normal size. Pulmonary artery pressure is about 45. The patient's pro B is 9746. ASSESSMENT: 1. Acute hypoxemic respiratory failure, improved. The patient is currently on nasal cannular oxygenation, and she seems to be saturating better. 2. Systolic heart failure exacerbation. Patient's ejection fraction is 20% with global hypokinesis. She is currently on diuretic therapy. We will start her on also lisinopril. She seems to be more stable now. So we will add metoprolol or and await further recommendations from Cardiology. I think coronary artery disease needs to be ruled out at this point with other cardiac investigations. 3. Previous smoker. 4. Dyslipidemia. Patient is on statin. 5. Advanced chronic obstructive pulmonary disease with exacerbation on presentation. The patient is on standard of therapy. Has been also been evaluated by Pulmonary Medicine. In general, I think Ms. Dubose seems to be doing a whole lot better. She came in because of acute hypoxemic respiratory failure with shortness of breath, which we think is due to a combination of congestive heart failure and chronic obstructive pulmonary disease exacerbation. This has been addressed, and from those 2 standpoints she seems to be doing better. Will be pending further recommendations from Pulmonary Medicine and Cardiology. Ms. Dubose has been started on some lisinopril, Aldactone and metoprolol this morning. Her cyanosis in the extremities looks a lot better today. cc: Kurt Dietz MD MTDD
[2018-10-31] MEDS: DESYREL PO SCH (21:11)
[2018-10-31] MEDS: TYLENOL PO PRN (21:11)
[2018-10-31] MEDS: PRAVACHOL PO SCH (21:11)
[2018-10-31] MEDS ORDERED: MIRALAX PO ONE (21:28)
[2018-10-31] MEDS ORDERED: DULCOLAX PR PRN (21:32)
[2018-11-01] MEDS ORDERED: NORCURON ONE (00:24)
[2018-11-01] MEDS ORDERED: AMIDATE ONE (00:24)
[2018-11-01] MEDS ORDERED: VERSED ONE (00:24)
[2018-11-01] MEDS ORDERED: QUELICIN ONE (00:25)
[2018-11-01] MEDS: LEVOPHED 8 MG in D5 1/2 NS 250 ML IV SCH ×3 (01:00→10:41)
[2018-11-01 01:13] LABS: BASO# 0.08 X1000 (0.0-0.2); BASO% 0.6 % (0.0-0.8); EOS# 0.03 X1000 (0.0-0.7); EOS% 0.2 % (0.0-10.0); HEMATOCRIT 42.6 % (37.0-47.0); IMM GRAN% 2.1 % (0.0-0.5); LYMPH# 2.57 X1000 (1.2-3.4); MCH 32.7 PG (27-31); MCHC 30.5 g/dL (33-37); MCV 107.3 FL (81-99); MONO# 1.37 X1000 (0.11-0.59); MONO% 9.6 % (1.7-9.3); MPV 11.9 FL (7.4-10.4); NEUT# 9.94 X1000 (1.4-6.5); NEUT% 69.5 % (42.2-75.2); PLT 217 X1000 (130-400); RBC 3.97 XMIL (4.2-5.4); RDW 16.6 % (11.5-14.5); WBC 14.29 X1000 (4.8-10.8)
[2018-11-01 01:44] LABS: ALLEN TEST YES; BE -24.6 mmoll (-3.0-3.0); BLOOD TYPE ARTERIAL; HCO3-(ACT) 5.8 mmoll (20.0-26.0); METHB 0.6 % (0.0-1.5); O2(CT) 16.5 mL/dL (15.0-23.0); O2HB 98.3 % (95.0-99.0); PCO2(98.6) 29 mmHg (35-45); PO2(98.6) 259 mmHg (60-100); SAMPLE BLOOD; SAO2 99.5 % (95.0-100.0); THB 11.5 g/dL (11.5-17.4)
[2018-11-01 01:46] LABS: ALB/GLOB RATIO 1.7; ALBUMIN 3.9 g/dL (3.5-5.0); CALCIUM 9.1 mg/dL (8.8-10.2); CREATININE 1.5 mg/dL (0.5-0.9); MAGNESIUM 3.1 mg/dL (1.5-2.7); TOTAL BILIRUBIN 0.65 mg/dL (0.20-1.00); TOTAL PROTEIN 6.2 g/dL (6.3-8.3)
[2018-11-01 01:47] LABS: MODALITY AMBU BAG
[2018-11-01 01:58] LABS: PTT 38.3 Seconds (22.3-41.8)
[2018-11-01 02:01] LABS: INR 3.26; PROTIME 35.5 Seconds (11.0-16.0)
[2018-11-01 02:02] LABS: CK INDEX 2.3 (0.0-2.5); CK-MB 4.76 ng/mL (0.0-5.0)
[2018-11-01] MEDS ORDERED: SODIUM BICARBONATE 8.4% IV PUSH ONE ×2 (02:08→06:41)
[2018-11-01] MEDS ORDERED: CALCIUM CHLORIDE 1 GM in NS 100 ML IV ONE (02:10)
[2018-11-01] MEDS ORDERED: D50W SYRINGE IV ONE (02:14)
[2018-11-01] MEDS ORDERED: HUMULIN R IV ONE (02:16)
[2018-11-01 02:44] LABS: D-DIMER > 20.00 ug/mLFEU (0.0-0.52)
[2018-11-01] MEDS: LASIX IV SCH ×2 (02:54→12:51)
[2018-11-01] MEDS ORDERED: DOPAMINE 800 MG/D5W 800 MG/500 ML IV.SOLN IV SCH (03:15)
[2018-11-01] MEDS: NEO-SYNEPHRINE 50 MG in NS 250 ML IV SCH ×3 (03:40→07:10)
[2018-11-01] MEDS ORDERED: DIPRIVAN 1% 1,000 MG/100 ML BOTTLE ONE (03:47)
[2018-11-01] MEDS: COLACE PO SCH ×3 (03:50→21:05)
[2018-11-01] MEDS: ROCEPHIN 1 GM in NS 50 ML IV SCH (03:52)
[2018-11-01] MEDS: DIPRIVAN 1% 1,000 MG/100 ML BOTTLE IV SCH ×4 (03:55→21:06)
[2018-11-01] MEDS: SOLU-MEDROL IV SCH ×3 (04:18→18:07)
[2018-11-01] MEDS: ZITHROMAX 500 MG/NS 500 MG/250 ML IVPB IV SCH (04:18)
[2018-11-01 04:36] LABS: pH(98.6) 6.95 (7.35-7.45)
[2018-11-01 04:48] LABS: ALLEN TEST YES; BE -19.4 mmoll (-3.0-3.0); BLOOD TYPE ARTERIAL; HCO3-(ACT) 9.8 mmoll (20.0-26.0); METHB 0.8 % (0.0-1.5); O2(CT) 16.1 mL/dL (15.0-23.0); O2HB 97.2 % (95.0-99.0); PCO2(98.6) 42 mmHg (35-45); PO2(98.6) 175 mmHg (60-100); SAMPLE BLOOD; SAO2 98.8 % (95.0-100.0); SRATE 14 BPM; THB 11.5 g/dL (11.5-17.4); TVOL 400 mL
[2018-11-01 04:54] LABS: MODALITY VENTILATOR
[2018-11-01 06:29] LABS: BASO# 0.03 X1000 (0.0-0.2); BASO% 0.1 % (0.0-0.8); EOS# 0.05 X1000 (0.0-0.7); EOS% 0.2 % (0.0-10.0); HEMOGLOBIN 11.4 g/dL (12.0-16.0); IMM GRAN# 0.27 X1000 (0.0-0.04); IMM GRAN% 1.2 % (0.0-0.5); LYMPH# 1.49 X1000 (1.2-3.4); LYMPH% 6.5 % (20.5-51.1); MCH 31.9 PG (27-31); MCHC 30.8 g/dL (33-37); MCV 103.6 FL (81-99); MONO# 0.62 X1000 (0.11-0.59); MONO% 2.7 % (1.7-9.3); MPV 11.5 FL (7.4-10.4); NEUT# 20.45 X1000 (1.4-6.5); NEUT% 89.3 % (42.2-75.2); PLT 204 X1000 (130-400); RBC 3.57 XMIL (4.2-5.4); RDW 16.5 % (11.5-14.5); WBC 22.91 X1000 (4.8-10.8)
[2018-11-01 07:04] LABS: ALB/GLOB RATIO 1.3; CALCIUM 9.4 mg/dL (8.8-10.2); CREATININE 1.6 mg/dL (0.5-0.9); POTASSIUM 3.8 mmol/L (3.5-5.1); TOTAL BILIRUBIN 0.78 mg/dL (0.20-1.00); TOTAL PROTEIN 5.3 g/dL (6.3-8.3)
--- NOTE | 2018-11-01 07:10 | Diag Imaging Result Doc PS360 ---
EXAM: CHEST-1 VIEW 11/01/2018 HISTORY: resp failure TECHNIQUE: AP portable at 0541 COMMENT: There is an endotracheal tube with its tip slightly below the thoracic inlet. There is mild interstitial pulmonary edema. There is ill-defined opacity over the lingula partially obscuring the left heart border. This is worse than on the previous study of 11/01/2018 at 0109, however there has otherwise been no significant change. IMPRESSION: Mild pulmonary edema. Atelectasis versus pneumonia in the lingula. Electronically signed by Roshan Graves 11/01/2018 7:08 AM
--- NOTE | 2018-11-01 07:12 | Diag Imaging Result Doc PS360 ---
EXAM: CHEST-PORTABLE 11/01/2018 HISTORY: Acute Resp Failure and ET tube placement TECHNIQUE: AP portable at 0109 COMMENT: There is minimal atelectasis or pneumonia over the lingula and left lower lobe. This has not changed appreciably since 10/31/2018. The inspiration is less optimal. There is an endotracheal tube with its tip approximately 2 cm above the mei. There is mildly increased interstitial opacity. IMPRESSION: Mild pulmonary edema. Atelectasis versus pneumonia in the lingula. Electronically signed by Roshan Graves 11/01/2018 7:10 AM
[2018-11-01] MEDS: LOVENOX SUBQ SCH (07:15)
--- NOTE | 2018-11-01 08:03 | PULMONOLOGY PROGRESS NOTE ---
DATE: 10/31/2018 SUBJECTIVE: The patient is awake, alert, and conversant. She reports she feels better today. OBJECTIVE: Vital Signs: The patient has been afebrile for the last 24 hours. Blood pressure 101/86, heart rate 96, respiratory rate 20, oxygen saturation 99% on 3 L per nasal cannula. HEENT: Pupils are equal and reactive. Oropharynx is clear. Neck: Supple. Chest: Reveals prolonged expiratory phase. Wheezing has significantly diminished. Cardiac: Distant heart sounds. Normal S1, normal S2. Abdomen: Soft . Extremities: Reveal decreased cyanosis compared with yesterday. LABORATORIES: Chest x-ray reveals atelectasis versus fibrosis at the left base, which appears new from 08/21/2017. IMPRESSION: A 73-year-old with: 1. Chronic obstructive pulmonary disease exacerbation. 2. Cardiomegaly with pulmonary edema. 3. Peripheral cyanosis. 4. Small pleural effusion. RECOMMENDATION: 1. Continue treatment for COPD exacerbation. Her wheezing has resolved. Therefore, I will transition her to oral steroids. 2. Wean oxygen as tolerated. 3. Continue treatment for systolic heart failure per Cardiology. Her ejection fraction was measured at 20%. cc: Freedom Penny MD
[2018-11-01 08:13] LABS: BASO# 0.05 X1000 (0.0-0.2); BASO% 0.3 % (0.0-0.8); EOS# 0.01 X1000 (0.0-0.7); EOS% 0.1 % (0.0-10.0); HEMOGLOBIN 12.6 g/dL (12.0-16.0); IMM GRAN# 0.14 X1000 (0.0-0.04); IMM GRAN% 0.7 % (0.0-0.5); LYMPH# 0.94 X1000 (1.2-3.4); LYMPH% 4.8 % (20.5-51.1); MCH 33.1 PG (27-31); MCHC 30.7 g/dL (33-37); MCV 107.6 FL (81-99); MONO# 0.74 X1000 (0.11-0.59); MONO% 3.8 % (1.7-9.3); MPV 11.5 FL (7.4-10.4); NEUT# 17.61 X1000 (1.4-6.5); NEUT% 90.3 % (42.2-75.2); PLT 175 X1000 (130-400); RBC 3.81 XMIL (4.2-5.4); RDW 16.9 % (11.5-14.5); WBC 19.49 X1000 (4.8-10.8)
[2018-11-01] MEDS ORDERED: VANCOMYCIN IV PER PHARMACY MISC SCH (08:15)
--- NOTE | 2018-11-01 08:20 | CARDIOLOGY PROGRESS NOTE ---
DATE: 10/31/2018 SUBJECTIVE: Ms. Dubose reports no difficulty. She was having a little orthopnea but that sounds to have improved. She is not having any lower extremity edema. No pain complaints. PHYSICAL EXAMINATION: She is afebrile, heart rate of 96, her blood pressure is 101/86. Her Is and Os are difficult to track because she does not seem to be urinating in the provided container. She has a total of 12 unmeasured voids noted. General: No acute distress. Cardiovascular: She sounds to be in a regular rate and rhythm. She has no obvious murmurs. She has no S3. She has no lower extremity edema. Her chest exam sounds relatively clear. She has no increased work of breathing. Her abdomen is soft and nontender. PERTINENT DATA: Her chest x-ray from today demonstrated atelectasis versus fibrosis in the left lung base. Her sodium is 140, potassium is 3.9, her BUN is 22, creatinine 0.9, her magnesium level is 1.6. ASSESSMENT: Ms. Dubose is a 73-year-old female with a history of new onset heart failure. Ejection fraction noted to be 20%. PLAN: We will continue to adjust medications. Previously, she was on fairly high doses of verapamil. I will stop that and switch her from lisinopril to losartan 50 mg daily. She is already on metoprolol. She is on Aldactone. We will recheck laboratories in the morning including a TSH and a proBNP. I will replete her magnesium today, if it has not already been done. cc: Geronimo Nazario MD
[2018-11-01 08:27] LABS: ALLEN TEST YES; BE -17.4 mmoll (-3.0-3.0); BLOOD TYPE ARTERIAL; HCO3-(ACT) 11.3 mmoll (20.0-26.0); METHB 0.7 % (0.0-1.5); O2HB 96.7 % (95.0-99.0); PCO2(98.6) 25 mmHg (35-45); PO2(98.6) 117 mmHg (60-100); SAMPLE BLOOD; SAO2 98.3 % (95.0-100.0); SRATE 18 BPM; THB 12.4 g/dL (11.5-17.4); TVOL 650 mL
[2018-11-01 08:31] LABS: MODALITY VENTILATOR; pH(98.6) 7.18 (7.35-7.45)
[2018-11-01] MEDS: PRILOSEC PO SCH (08:34)
[2018-11-01] MEDS: EFFEXOR XR PO SCH (08:35)
[2018-11-01] MEDS: BUSPAR PO SCH (08:36)
[2018-11-01] MEDS: MIRALAX PO SCH (08:36)
[2018-11-01] MEDS: ASPIRIN PO SCH (08:36)
[2018-11-01] MEDS: HUMULIN R SUBQ SCH ×4 (08:42→21:00)
[2018-11-01 08:49] LABS: ANISOCYTOSIS 2+; BANDS 2 % (0-1); LYMPHS 5 % (21-51); MONO 3 % (1-9); SEGS 89 % (42-75)
--- NOTE | 2018-11-01 08:53 | PROGRESS NOTE ---
DATE: 11/01/2018 The patient developed respiratory distress about 0014 hours. She was subsequently intubated. Soon after that she went into cardiac arrest. ACLS protocol was initiated. She did receive epinephrine as well as sodium bicarbonate with subsequent return of spontaneous circulation. She was noted to be hypotensive and required pressors. She was placed on Levophed as well as epinephrine. Her EKG did not show any acute ST, T changes. X- ray of her chest showed massive cardiomegaly. Exam notes intubated patient that is unresponsive. cardiovascular exam, notes S1, S2. Respiratory exam, there was good entry bilaterally. LABS: Did show a pH of 6.9, with elevated lactate , potassium level of 6.0. Significant elevation in her liver function tests, AST 2485, with ALT 2003. ASSESSMENT: 1. Acute respiratory failure. Maintain the patient on the ventilator support. Use propofol for sedation, if needed. Use diuretics for pulmonary edema and nebulized bronchodilators/steroids for chronic obstructive pulmonary disease. Pulmonary team already following the patient. 2. Status post cardiac arrest. Maintain patient on continuous cardiac monitoring. Follow up on serial cardiac enzymes as well as EKG. Cardiology team already following the patient. 3. Severe cardiomyopathy. Ejection fraction of most recent echo about 20%. Use diuretics as needed. Monitor intakes and outputs, as well as daily weights. 4. Hyperkalemia. Will treat with a cocktail of calcium chloride, sodium bicarbonate, as well as insulin with glucose. Follow up on potassium level. 5. Ischemic hepatopathy. Most likely secondary to shock. Follow up on liver function tests. Consult with Gastroenterology. 6. Severe metabolic acidosis. Two amps of sodium bicarbonate given. Followup on patient's pH. 7. Shock,probably septic. IV fluids given during code, about 1 liter of NS, obtain cultures, start broad spectrum antibiotics. Judicious administration of iv fluids in light of severely depressed cardiac ejection fraction. ID consulted for antibiotic management. The patient's family made aware of current development. cc: MD JAIME Saucedo
[2018-11-01] MEDS: MAXIPIME 1 GM in NS 50 ML IV SCH ×2 (08:59→21:05)
[2018-11-01] MEDS ORDERED: COZAAR PO SCH (09:00)
[2018-11-01] MEDS ORDERED: LEVAQUIN 250 MG/D5W 250 MG/50 ML IVPB IV SCH (09:00)
[2018-11-01 09:19] LABS: CK INDEX 3.2 (0.0-2.5); CK-MB 9.68 ng/mL (0.0-5.0)
[2018-11-01] MEDS ORDERED: VANCOMYCIN 1,350 MG in NS 250 ML IV ONE (10:00)
--- NOTE | 2018-11-01 10:16 | Diag Imaging Result Doc PS360 ---
EXAM: CHEST-PORTABLE 11/01/2018 HISTORY: Verify NG placement TECHNIQUE: AP portable semiupright at 0945 COMMENT: There is an NG tube with its tip in the distal stomach. There is an endotracheal tube with its tip below the thoracic inlet but well above the mei. The lungs are better expanded than they were at the time the previous study at 04 0541. IMPRESSION: NG tube in the stomach. Electronically signed by Roshan Graves 11/01/2018 10:14 AM
[2018-11-01] MEDS: ATROVENT NEB INH SCH ×3 (10:28→22:30)
[2018-11-01] MEDS: XOPENEX NEB INH SCH ×3 (10:28→22:30)
[2018-11-01] MEDS: ZYVOX 600 MG/D5W 600 MG/300 ML IVPB IV SCH ×2 (10:50→21:05)
[2018-11-01] MEDS: PROTONIX IV SCH (10:50)
[2018-11-01] MEDS: SODIUM CHLORIDE 0.9% INJ SCH (10:51)
[2018-11-01 11:14] LABS: ALLEN TEST YES; BE -15.7 mmoll (-3.0-3.0); BLOOD TYPE ARTERIAL; HCO3-(ACT) 12.6 mmoll (20.0-26.0); MODALITY VENTILATOR; O2(CT) 16.7 mL/dL (15.0-23.0); O2HB 95.5 % (95.0-99.0); PCO2(98.6) 17 mmHg (35-45); PO2(98.6) 88 mmHg (60-100); SAMPLE BLOOD; SAO2 97.2 % (95.0-100.0); SRATE 32 BPM; THB 12.4 g/dL (11.5-17.4); TVOL 550 mL
--- NOTE | 2018-11-01 11:17 | PROGRESS NOTE ---
DATE: 11/01/2018 SUBJECTIVE: Ms Thomason was admitted on 10/30/2018. She is currently being treated for acute hypoxic respiratory failure, systolic heart failure exacerbation with a known ejection fraction of 20% with global hypokinesis as well as advanced COPD with exacerbation on presentation. According to the nurses report at 0014 on 11/01/2018 the patient was noted by the patient healthcare management to be gasping for air. Also telemetry at this time did call and notify them as well that her heart rate was down to 55. It had previously been running in the high 90s and low 100's. They did go ahead and initiate a CAT call though the patient did continue to have respiratory compromise, did become apneic. At this time they did go ahead and assist her with bag-valve mask, go ahead and assist respirations and oxygenating her with a bag-valve mask. Reyna levy was called. Myself, as well as Dr. Bravo and Dr. Clayton the ER physician, did respond to the code. The patient was intubated by Dr. Clayton. Medications succinylcholine and etomidate were given for rapid sequence intubation. Vital signs immediately after intubation were noted to be heart rate of 50 sinus hilton and blood pressure 120/51 with a MAP of 62. The patient did have a positive pulse palpated at this time. Though approximately 10 minutes after intubation the patient was noted to be pulseless she did have a PA on the monitor. At this time CPR was initiated. ACLS protocol was also initiated with epinephrine being given. The patient did have a 2 minute period where she was being provided chest compressions though on next pulse rhythm check she was noted to have positive pulse with sinus bradycardia at 56 though was hypotensive with blood pressure of 77/43. We did initiate a 1 L bolus though she did continue to be hypotensive. We did go ahead and start additional pressor of Levophed. At 00:53 the patient did have loss of pulse again with PA on the monitor. CPR was again initiated. ACLS protocol initiated well with additional medicines of epi and sodium bicarbonate given. Again the patient did have CPR provided for approximately 2 minutes and did have return of pulse. She was sinus rhythm on the monitor with a heart rate of 81, blood pressure was 91/66. At this time we did obtain stat labs of CBC, CMP, magnesium, CK, troponin, PT, PTT, arterial blood gases as well as chest x-ray and EKG. We did arrange for the patient to be transferred to the ICU. The patient did begin to become hypotensive even at max infusion rate on Levophed. We did add on additional pressures of Francisco synephrine. LABORATORY DATA: Laboratory results did reveal criticals of arterial blood gases with a pH of 6.95. She also had a lactate 18.6. She also had a critical potassium of 6. Now has an acute kidney injury with a BUN of 37 creatinine of 1.5. She also does have elevated liver function tests likely secondary to liver shock from hypotension. She did have a very slight increase in her troponin at 0.015. EKG did show normal sinus rhythm, right bundle branch block at a rate of 81 with a QTC of 539 though she did not appear to have any acute ST changes when compared to previous EKGs. Dr. Bravo did confirm ET tube placement. Dr. Bravo was also notified of patient's critical lab results. Medications of two amps of sodium bicarbonate IV push as well as ten units of regular insulin IV, 1 amp D50 IV, and calcium chloride 1 g were given for treatment of the patient's critical laboratory results. We have ordered for repeat chemistries as well as repeat ABGs to be drawn to re-evaluate treatment. ASSESSMENT/PLAN: The patient is currently being moved to the ICU. We will continue to monitor her condition closely. At this time she is in critical condition. I did speak on the phone to her daughter Precious she is her oldest child. I did update on her update her on her mother's condition. She stated verbal understanding, did not report any further questions at the end of our conversation though at this time she does want her to remain a full code and does plan to come to the hospital in the morning. Further orders and recommendations pending hospital course, diagnostic studies, and physician evaluation. Dictated by GREGORY Cespedes for Mitchel Bravo MD cc: Mitchel Bravo MD
--- NOTE | 2018-11-01 12:05 | PROGRESS NOTE ---
DATE: 11/01/2018 SUBJECTIVE: This morning, Ms. Dubose was seen in the ICU. I understand that last night, she had gone to use the restroom at around 8 p.m., came back, and she developed remarkable shortness of breath at the time. She was given some nebulization and it appeared that episode subsided. Somewhere around midnight, she started having shortness of breath. She became apneic. Code was activated. I have reviewed the code sheet. It appeared that the code was started at 0014 at which time it was noted Ms. Dubose was mainly in respiratory failure. Bag mask ventilation was started and she was subsequently intubated. It appeared she lost pulse at about 0036. Bradycardia was noted on the monitor but there was no pulse. CPR was started. Pulse was regained immediately in 2 minutes. She subsequently lost pulse again at 0053, same bradycardia with PEA. BLS and ACLS protocol were initiated. Pulse was obtained at 0058. Down time was about 5 minutes and Ms. Dubose was transferred to the ICU when she became a little stable. This morning, she is intubated. She is on a propofol drip. She is also on both Levophed and Francisco- Synephrine drips. NG tube has just been placed. CURRENT VITAL SIGNS: Blood pressure is 168/96, pulse of 96, patient is saturating 99% on mechanical ventilation, recent temperature is about 94.3. PHYSICAL EXAMINATION: Ms. Dubose is a 73-year-old, female. She is in bed. She is currently intubated and sedated. Mucosa is pink. Anicteric. There is still some peripheral distal cyanosis. Chest: Air entry is bilaterally reduced. There are transmitted sounds from the ventilator. Cardiovascular: Regular rate and rhythm. I did not hear any murmurs. GI: Abdomen is soft. Bowel sounds seem to be present. No hepatosplenomegaly. Extremities: No pedal edema. Distal pulses are present. However, they are slightly reduced. FAMILY SERVICE ASSISTANT: The patient will barely move both lower extremities to painful stimulation. Pupils are pinpoint but they are reactive. LABORATORY DATA: WBC is 19.46, hemoglobin is 12.6, platelet count of 176,000. The differential shows 89% neutrophils, only 2% of bands. Chemistry is also reviewed. Creatinine is up to 1.6. Liver enzymes have remarkably up-rocketed. AST is at 3000, ALT is 2234. ABGs show pH of 7.18, pCO2 of 25, PaO2 of 117. This is on mechanical ventilation. Lactate is up to 16.50. A chest x- ray this morning shows mild pulmonary edema. There is atelectasis versus pneumonia in the lingula. So far, blood cultures have been done and are pending. Urine culture is also pending. ASSESSMENT: 1. Status post cardiopulmonary arrest. It appears the initial event was hypoxemic respiratory failure. Subsequently, patient went into pulseless electrical activity and had a cardiac arrest as well. She is currently intubated, still critically sick but hemodynamically seems to be stable on the current interventions. Patient is being seen by cardiology and pulmonary medicine. 2. Acute onset systolic heart failure, ejection fraction of 20% with global hypokinesis. Cardiology is on board. Some new medications were started on her yesterday. Will be pending further recommendations from cardiology. 3. Advanced chronic obstructive pulmonary disease with exacerbation on presentation. 4. Severe high anion gap metabolic acidosis due to lactic acid. 5. Transaminitis secondary to shock liver. 6. Acute kidney injury, presumably due to hypoxemic injury during the code (shock). This could ultimately lead to acute tubular necrosis. We are going to be keeping a very close eye on the renal function. We will avoid any nephrotoxic drugs. I have discontinued the vancomycin for this reason. PLAN: In general, Ms. Dubose is critically sick. I understand the family members have been notified about the events from last night. I am still waiting to talk to them. The patient is being seen by pulmonary medicine and cardiology. GI and ID have also been consulted. We appreciate the input from the various subspecialties. Critical time spent is 45 minutes. cc: Kurt Dietz MD [facility]
--- NOTE | 2018-11-01 14:56 | PULMONOLOGY PROGRESS NOTE ---
DATE: 11/01/2018 INTERIM HISTORY: Events of the morning reviewed. The patient had some shortness of breath yesterday after straining. Early this morning she was found gasping and a CAT call was called followed by a Reyna Stovall. The patient did receive 2 rounds of CPR, one lasted 3 minutes, one lasted 5 minutes. She was transferred to the Intensive Care Unit. She has had an episode of emesis this morning. OBJECTIVE: Vital Signs: BP 132/70, heart rate 108, respiratory rate increased by this practitioner to 32, oxygen saturation 99%. She currently is on Francisco-Synephrine and Levophed. HEENT: Pupils are equal. Oropharynx has some residual emesis noted. Neck: Supple. Chest: Reveals crackles bilaterally. Cardiac: Distant heart sounds. Normal S1, normal S2. Definite S3 cannot be appreciated. Abdomen: Soft. Extremities: Cold to the touch. LABORATORIES: Arterial blood gas at 1:34 this morning pH 6.95, pCO2 of 29, PO2 of 259 with a lactate of 18.6. Arterial blood gas on mechanical ventilation at 8:17 this morning pH 7.18, pCO2 of 25, PO2 of 117 and a lactate of 6.5. Chest x-ray reveals cardiomegaly with pulmonary edema. IMPRESSION: 73-year-old with 1. Congestive heart failure with decreased ejection fraction. 2. Pulmonary edema. 3. Pleural effusions. 4. Acute hypoxemic respiratory failure. 5. Cardiogenic shock with lactic acidosis. 6. Chronic obstructive pulmonary disease with exacerbation. RECOMMENDATIONS: 1. Adjust ventilator settings to augment cardiac output. Will use a hide tidal volume and a high respiratory rate to augment cardiac output. 2. Wean oxygen as tolerated to minimize free radical damage on an ischemic brain following cardiopulmonary resuscitation. 3. The patient was deemed not a candidate for hypothermia. She is currently mildly hypothermic and she will not be warmed to help facilitate brain recovery. 4. Prognosis is guarded to poor. I spoke at length with the daughter and the son. They do not want additional CPR. Critical Care Management: 30+ minutes cc: Freedom Penny MD [facility]
--- NOTE | 2018-11-01 15:35 | GASTROENTEROLOGY CONSULTATION ---
DATE: 11/01/2018 REASON FOR CONSULTATION: abnormal LFTs HPI: Ms. Nova Dubose is a 73 year old woman who was initially admitted with acute on chronic systolic CHF exacerbation (EF 20%) and COPD whose course was complicated by PEA arrest overnight requiring CPR, intubation, and pressors. ROSC was achieved after 2 minutes. Post-code revealed elevated AST/ALT from normal on last check. Of note, patient had an episode of aspiration post- intubation. History obtained from record. ROS: Unable to obtain PAST MEDICAL HISTORY: 1. Hypertension. 2. Hyperlipidemia. 3. Diabetes mellitus type 2. 4. Migraines. 5. Insomnia. 6. Depression. 7. Anxiety. 8. Nicotine dependence. 9. Kidney stones. PAST SURGICAL HISTORY: 1. Tonsillectomy. 2. Kidney stone removal. 3. Right ankle surgery secondary to ankle fracture. SOCIAL HISTORY: 1ppd smoker; no alcohol or drug use FAMILY HISTORY: Positive for her father having a history of diabetes mellitus, heart disease and hypertension. Her mother had a history of heart disease and bladder cancer. ALLERGIES: Patient has no known allergies. HOME MEDICATIONS: 1. Aspirin 81 mg p.o. daily. 2. Buspirone 15 p.o. b.i.d. 3. Lisinopril 40 mg p.o. daily. 4. Metformin 1000 mg p.o. b.i.d. 5. Pravastatin 20 mg p.o. at bedtime. 6. Phenergan 25 mg p.o. q.4-6 hours p.r.n. for nausea. 7. Imitrex 25 mg tablet p.o. p.r.n. as directed for migraines. 8. Trazodone 100 mg p.o. at bedtime. 9. Effexor XR 150 mg capsule p.o. daily. 10. Verapamil sustained release 240 mg capsule p.o. b.i.d. CURRENT MEDS: reviewed PE: VS: T98.2 HR 88 RR 23 BP 98/64 O2 sat 98% on 35% FiO2 on pressors GEN: intubated, sedated HEENT: anicteric, ET in place NECK: supple PULM: CTAB, no wheezing CV: RRR, no murmurs ABD: soft, NT/ND, NABS EXT: no cce NEURO: sedated LABS Cr 1.6 lactate 18 WBC 19 Hgb 12.6 Albumin 3.0 Tbili 0.78 INR 3.26 AST 3067 ALT 2234 ALP 114 A/P: Ms. Nova Dubose is a 73 year old woman who was initially admitted with acute on chronic systolic CHF exacerbation (EF 20%) and COPD whose course was complicated by PEA arrest overnight requiring CPR, intubation, and pressors found to have ischemic liver injury. Treatment is supportive care, avoiding hypotension, hepato-toxic medications. I would expect a delay in rising bilirubin as transaminitis downtrends. #Ischemic liver injury: trend LFTs daily, maintain MAPS >60 #Coagulopathy: give vitamin K 10mg IV x3 days; trend INR daily #Aspiration PNA: post code: on abx her ID #PEA arrest: likely 2/2 to hypoxia; defer mgmt to primary team #Cardiogenic shock: on pressors: cards following #QUOC: trending Cr, renally dose meds #Lactic acidosis: 2/2 arrest #CHF: cardiology following #COPD: pulm following #GI ppx: PPI IV once daily [facility]
--- NOTE | 2018-11-01 15:50 | INFECTIOUS DISEASE CONSULT REP ---
DATE: 11/01/2018 CONCLUSION: The patient appears to have aspiration pneumonia. RECOMMENDATIONS: I agree with treating the patient with a combination of cefepime and Zyvox. I have discontinued Levaquin. DISCUSSION: The patient is intubated and unable to give a history. There is no family member present. According to the information in the computer and also talking with the nurses, the patient coded and was intubated. She did vomit after she was intubated and the vomitus had undigested food in it. The patient's CT angiogram showed congestive heart failure and left upper lobe infiltrate. The chest x-ray from today showed lingular atelectasis versus pulmonary edema. Blood and urine cultures are pending. Liver function studies are up with the AST being 3,067. Creatinine is 1.6. GFR is 32. Blood gases show a pH of 7.18, a pO2 of 117, and a pCO2 of 25. CBC shows a white count of 19,490, hemoglobin 12.6, and platelet count 175,000. REVIEW OF SYSTEMS: This was unable to be obtained. PAST MEDICAL HISTORY: Positive for hypertension, hyperlipidemia, diabetes mellitus, migraine headaches, insomnia, depression, anxiety, nicotine dependence, kidney stones, and chronic obstructive pulmonary disease. PAST SURGICAL HISTORY: Positive for tonsillectomy, kidney stone removal, and right ankle surgery due to a fracture. SOCIAL HISTORY: Patient is smokes cigarettes. She does not drink alcoholic beverages or abuse drugs. She lives alone in an apartment. FAMILY HISTORY: Positive for diabetes mellitus, heart disease, hypertension, and bladder cancer. ALLERGIES: They patient has no known drug allergies. HOME MEDICATIONS: Aspirin, buspirone, lisinopril, metformin, pravastatin, Phenergan, Imitrex, trazodone, Effexor, and verapamil. PHYSICAL EXAMINATION: Vital Signs: Temperature is 98.8 degrees, pulse 93, respirations 32, blood pressure 90/60. Patient weighs 121 pounds. General: This is an ill-appearing, elderly female. She is intubated and sedated. Head, eyes, ears, nose, and throat: She has an orotracheal tube and an NG tube in place. Neck: No meningismus. Thorax: Patient has an increased AP diameter of the chest. Lungs: Clear to auscultation. Cardiovascular: Heart rate was regular, but there were times when she had some premature beats. Abdomen: Soft and nontender. Integument: No rash noted. Neurologic: The patient is obtunded. There is no tremor. The patient did not follow verbal stimuli to move her extremities. Thank you for the consult. cc: Kavon Guerra MD
--- NOTE | 2018-11-01 15:54 | CARDIOLOGY PROGRESS NOTE ---
DATE: 11/01/2018 SUBJECTIVE: Ms. Dubose apparently had an event last night initially resulting in a CAT call, subsequently proceeding to a code event. She ultimately was intubated, had a rhythm of PEA at some point during the proceedings. She subsequently was transferred down to the ICU and has been placed on pressors. PHYSICAL EXAMINATION: She is afebrile. Heart rates have been predominantly in the 80s to 90s. Most recent blood pressure is 128/85. 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 Cardiovascular: She sounds to be in a regular rate and rhythm. I do not hear any murmurs. She is mildly cool distal extremities but otherwise no lower extremity edema. Chest: Has clear mechanical breath sounds throughout. Abdomen: Soft, nontender. PERTINENT DATA: She had a chest x-ray performed 9:38 this morning showing better expansion of lungs on the current study NG tube placement. Her chest x-ray at around midnight showed mild pulmonary edema and atelectasis versus pneumonia in the lingula. Her lab data shows a white count of 19.5, her hematocrit is 41, her platelet count is 175,000. Her sodium is 89. She had a bandemia of 2. Her D-dimer is greater than 20. INR is 3.2. Her ABG shows a pH 7.30, pCO2 of 17. Initially she had a pH of 6.95 occurring at 5:19. On that study she had a pCO2 of 29, PO2 of 259, AA gradient of 418, her lactate on that study was 18.6, most recent lactate is 18.3. Her sodium is 144, potassium 3.8, BUN 36, creatinine is 1.6. Her LFT show an AST of 3000, ALT of 2200, MB fraction 9.7, troponin 0.05. She does not have an EKG that I can see from around that time period. ASSESSMENT: Ms Dubose is 73-year-old female who was admitted with new onset heart failure. PLAN: Her respiratory event last night did not seem to be suggestive of pulmonary edema based on only mild pulmonary edema being present on the chest x-ray occurring at the time of the event. She was very comfortable yesterday when I spoke to her. She was lying flat in bed, breathing without difficulties. She did not appear to really have any significant blood pressure spikes preceding the event. The highest blood pressure at 2331 was 140/101. She does have a markedly elevated D-dimer today at greater than 20 although her AA gradient is really not that elevated currently. I am unclear as to what the etiology of her current episode is. She could possibly be septic but from what source I am not sure. Does not appear that she has aspirated based on her chest x-ray. We will do a lower extremity venous ultrasound although she has been on Lovenox. cc: Geronimo Nazario MD
[2018-11-01 15:57] LABS: UR PROT RANDOM 45.9 mg/dL
[2018-11-01 17:35] LABS: CK-MB 8.03 ng/mL (0.0-5.0)
--- NOTE | 2018-11-01 19:57 | Diag Imaging Result Doc PS360 ---
EXAM: US RENAL 2 (RETROPER) COMPLETE 11/01/2018 HISTORY: decreased renal function TECHNIQUE: Renal ultrasound COMMENT: There is a small amount of ascites in the subhepatic space. The kidneys are without evidence of hydronephrosis. There are no apparent stones. There is a cyst in the left mid renal cortex measuring 1.2 cm. The urinary bladder contains a Jose catheter. IMPRESSION: Ascites. No evidence of obstructive uropathy. Electronically signed by Roshan Graves 11/01/2018 7:54 PM
[2018-11-01] MEDS: PRAVACHOL PO SCH (21:05)
[2018-11-02] MEDS: LASIX IV SCH (01:26)
[2018-11-02] MEDS: SOLU-MEDROL IV SCH ×3 (03:00→18:03)
[2018-11-02 04:43] LABS: ALLEN TEST YES; BE -14.6 mmoll (-3.0-3.0); BLOOD TYPE ARTERIAL; HCO3-(ACT) 13.5 mmoll (20.0-26.0); METHB 0.8 % (0.0-1.5); O2(CT) 17.2 mL/dL (15.0-23.0); O2HB 95.7 % (95.0-99.0); PO2(98.6) 96 mmHg (60-100); SAMPLE BLOOD; SAO2 97.3 % (95.0-100.0); SRATE 32 BPM; THB 12.7 g/dL (11.5-17.4); TVOL 550 mL; pH(98.6) 7.34 (7.35-7.45)
[2018-11-02] MEDS: LOVENOX SUBQ SCH ×3 (04:43→05:34)
[2018-11-02 04:44] LABS: MODALITY VENTILATOR; PCO2(98.6) 16 mmHg (35-45)
[2018-11-02] MEDS: DIPRIVAN 1% 1,000 MG/100 ML BOTTLE IV SCH ×4 (05:01→23:48)
[2018-11-02 06:14] LABS: HEMATOCRIT 36.1 % (37.0-47.0); HEMOGLOBIN 11.8 g/dL (12.0-16.0); MCH 33.1 PG (27-31); MCHC 32.7 g/dL (33-37); MCV 101.1 FL (81-99); MPV 12.4 FL (7.4-10.4); RBC 3.57 XMIL (4.2-5.4); RDW 16.8 % (11.5-14.5); WBC 19.12 X1000 (4.8-10.8)
[2018-11-02] MEDS: HUMULIN R SUBQ SCH ×4 (06:18→20:43)
[2018-11-02 06:25] LABS: INR 2.21; PROTIME 26.1 Seconds (11.0-16.0)
--- NOTE | 2018-11-02 06:57 | Diag Imaging Result Doc PS360 ---
EXAM: CHEST-PORTABLE HISTORY: respiratory failure TECHNIQUE: Portable chest single view COMPARISON: 11/01/2018 FINDINGS: The lungs are well expanded. Endotracheal tube in good position. Nasogastric tube overlies the esophagus and stomach. The heart is not enlarged. The vessels are not distended. Questionable tiny left basilar infiltrate.. No effusion identified. IMPRESSION: Questionable tiny left basilar infiltrate Electronically signed by Carmelo Cole 11/02/2018 6:54 AM
--- NOTE | 2018-11-02 07:21 | EKG Report ---
Test Performed on : 11/01/2018 00:51:21 AM Test Reason : code, resp failure Blood Pressure : / mmHG Vent. Rate : 081 BPM Atrial Rate : 081 BPM P-R Int : 150 ms QRS Dur : 130 ms QT Int : 464 ms P-R-T Axes : 000 099 -27 degrees QTc Int : 539 ms Normal sinus rhythm. Right bundle branch block Abnormal ECG When compared with ECG of 30-OCT-2018 08:04, Right bundle branch block is now present Criteria for Septal infarct are no longer present Confirmed by Luis Felipe EMERSON, John Alvarez ([id number]) on 11/02/2018 9:28:19 AM
[2018-11-02 08:07] LABS: ALB/GLOB RATIO 1.3; DIRECT BILIRUBIN 0.7 mg/dL (0.00-0.20); TOTAL BILIRUBIN 1.3 mg/dL (0.20-1.00); TOTAL PROTEIN 5.3 g/dL (6.3-8.3)
[2018-11-02 08:12] LABS: POTASSIUM 5.1 mmol/L (3.5-5.1)
[2018-11-02 08:13] LABS: ALBUMIN 3.1 g/dL (3.5-5.0); CALCIUM 8.6 mg/dL (8.8-10.2); CREATININE 2.8 mg/dL (0.5-0.9); PHOSPHORUS 6.7 mg/dL (2.7-4.5)
[2018-11-02] MEDS: MIRALAX PO SCH (08:32)
[2018-11-02] MEDS: COLACE PO SCH ×2 (08:32→21:30)
[2018-11-02] MEDS: ASPIRIN PO SCH (08:32)
[2018-11-02] MEDS ORDERED: SODIUM BICARBONATE 8.4% IV ONE (08:34)
[2018-11-02] MEDS: MAXIPIME 1 GM in NS 50 ML IV SCH ×2 (08:37→20:06)
[2018-11-02] MEDS: VITAMIN K 10 MG in NS 50 ML IV SCH (08:37)
[2018-11-02] MEDS: XOPENEX NEB INH SCH ×3 (09:18→21:40)
[2018-11-02] MEDS: ATROVENT NEB INH SCH ×3 (09:18→21:40)
[2018-11-02] MEDS: PROTONIX IV SCH (10:09)
[2018-11-02] MEDS: SODIUM CHLORIDE 0.9% INJ SCH (10:09)
[2018-11-02] MEDS ORDERED: SODIUM BICARBONATE 8.4% 75 MEQ in D5W 1,000 ML IV ONE (10:30)
[2018-11-02] MEDS: ZYVOX 600 MG/D5W 600 MG/300 ML IVPB IV SCH ×2 (10:50→21:29)
--- NOTE | 2018-11-02 10:55 | PROGRESS NOTE ---
DATE: 11/02/2018 SUBJECTIVE: Ms. Dubose this morning is seen in the ICU. She continues to be intubated. No acute changes overnight per the nursing staff. OBJECTIVELY: Vital Signs: Blood pressure is 104/59, pulse of 101, respirations 32, temperature is 98.5 degrees. General: Ms. Dubose is a 73-year-old female. She is in bed, currently intubated and sedated. HEENT: Mucosa is pink and moist. Anicteric. Acyanotic. Neck: Supple. Respiratory: Air entry is bilaterally reduced. There are some transmitted sounds from the ventilator, but no rhonchi, no crackles. Cardiovascular: Regular rate and rhythm. No murmurs. No rubs, no gallops. Abdomen: Soft. Bowel sounds present. No hepatosplenomegaly. There is some edema on the lateral aspect of the abdominal wall. Extremities: No pedal edema. Neurologic: The patient is currently intubated and sedated, but she would move extremities to painful stimulation, and she will withdraw extremities to painful stimulation. Pupils are equal and reactive. LABORATORY DATA: WBC is 19.12, hemoglobin is 11.8, platelet count of 159,000. Chemistry is also reviewed. Sodium is 147, creatinine is 2.8. Liver enzymes continue to be remarkably elevated. Renal ultrasound showed ascites. No evidence of obstructive uropathy. ASSESSMENT: 1. Status post cardiopulmonary arrest. This happened yesterday, 11/01/2018. 2. Acute hypoxemic respiratory failure. The patient is currently intubated. There is concern that the patient might have aspirated some gastric content. 3. Acute systolic heart failure, ejection fraction of 20% with global hypokinesis. Cardiology is on board. 4. Advanced chronic obstructive pulmonary disease with exacerbation. 5. Acute kidney injury. The patient seems to be making adequate urine. Renal ultrasound was negative for any obstructive uropathy. Urinalysis showed a sodium level of 97, which could be consistent with acute tubular necrosis and not an intravascular depletion. Nephrology is on board. We are going to keep an eye on her kidney functions. 6. Shock liver. Gastroenterology is on board. 7. High anion gap metabolic acidosis due to lactic acid, presumably from hypoperfusion as a result of the cardiac event. Patient is getting pushes of bicarb. 8. Sepsis syndrome, questionable source from the lungs (pneumonia). The patient is on IV antibiotics and Infectious Disease is on board. 9. Multiorgan Failure with guarded to poor prognosis. In general, Ms. Dubose was admitted to the hospital on 10/29/2018 initially because of shortness of breath and leg swelling. She was admitted for suspicion of congestive heart failure, and possible chronic obstructive pulmonary disease exacerbation. She seems to have been improving during the course of the hospital course until yesterday, 11/01/2018, it was alleged that Ms. Dubose went to the restroom for BM. She developed some shortness of breath, went back but then early yesterday morning after midnight, she went into cardiopulmonary arrest and was resuscitated and intubated. She has been intubated since. She seems to be hemodynamically stable. She is currently coming off the pressor. She continues to be remarkably sick and we will notify the family members of her current clinical status. Critical time spent 45 minutes. cc: Kurt Dietz MD [facility]
--- NOTE | 2018-11-02 11:04 | INFECTIOUS DISEASE PROGRESS NO ---
DATE: 11/02/2018 PRESENT ILLNESS: The patient has aspiration pneumonia in the left lower lobe. MEDICATIONS: The patient is on the first day of treatment with cefepime and Zyvox. PHYSICAL EXAMINATION: Vital Signs: Temperature is 99 degrees, pulse 100, respirations 32, blood pressure 113/56. General: This is an ill-appearing, elderly female. She is intubated and sedated. Head, Eyes, Ears, Nose, and Throat: She has an orotracheal tube in place and a nasogastric tube in place. Neck: No meningismus. Lungs: Clear to auscultation. Cardiovascular: Heart rate is regular with an occasional premature beat. Abdomen: Soft and nontender. Neurologic: The patient has a decreased level of consciousness. There is no tremor. She did not respond to verbal stimuli. Integument: No rash noted. LAB AND X-RAY: The CBC today shows a white count of 19,120, hemoglobin 11.8, and platelet count 159,000. Blood gases showed a pH of 7.34, PO2 of 96, and a pCO2 of 16. Creatinine is 1.6. GFR is 32. Procalcitonin is less than 0.1. Urine culture is negative. Blood cultures are pending, as is sputum culture. Chest x-ray shows a small left lower lobe infiltrate. Renal ultrasound shows no obstruction. ASSESSMENT AND PLAN: The patient may have an aspiration pneumonia. The procalcitonin with a level of less than 0.1 makes this very unlikely, however. For now, I am going to continue with her antibiotics, namely cefepime and Zyvox. COMORBIDITIES: She is elderly. She also has diabetes mellitus. She also is a cigarette smoker. cc: Kavon Guerra MD
--- NOTE | 2018-11-02 13:09 | GASTROENTEROLOGY PROGRESS NOTE ---
DATE: 11/02/2018 SUBJECTIVE: Patient is lying in bed. She is intubated, vented. I spoke to the patient's nurse and the Primary Care Team as well as Dr. Dietz. The patient is on a low dose of Levophed. She has been afebrile for the last 24 hours. Her temperature maximum was 99 degrees. Normal bowel movements documented for the last 3 days. OBJECTIVE: Vital signs: Temperature of 98.6, pulse rate of 101, respiratory 32, blood pressure 111/63, saturating 94% on 35% FiO2 on mechanical ventilator. general appearance: Thinly built, lying in bed, currently intubated, vented and sedated with IV Diprivan. HEENT: Positive mild pallor, mild icterus. ET tube in place. Neck: Supple. Abdomen: Soft, no guarding. Extremities: No cyanosis, clubbing. Neurologic: She is sedated. LABORATORIES AND IMAGING: Hemoglobin and hematocrit 11.8 and 36.1, white count 19.12, platelet count of 159,000. PT of 26.1, PTT of 38.3, INR of 2.21. ABG showing pH of 7.34, pCO2 of 16, PO2 of 96. Her lactate is 16.2. This is on 35% FiO2. Sodium 147. Potassium 5.1, chloride 99, bicarb of 8, anion gap of 40, BUN of 62, creatinine 2.8, glucose of 131, calcium 8.6, phosphorus 6.7, total bilirubin is 1.3. AST of 3154. ALT 2233. Alkaline phosphatase is 117. Total protein 5.2. Albumin of 3. Blood cultures x2 were drawn yesterday. They are currently pending. Urine culture preliminary showing no growth. Sputum culture is currently pending. Chest x-ray done today showed questionable tiny left basilar infiltrate. Renal ultrasound done showed ascites. No evidence of obstructive uropathy. ASSESSMENT AND PLAN: 1. Shock liver. Continue to follow liver enzymes. Try to keep MAP more than 60 mmHg. I discussed that with Dr. Dietz in the ICU. 2. Lactic acidosis likely secondary to hypoperfusion. She will need some IV fluids as well as reducing Levophed as tolerated. 3. Acute on chronic systolic congestive heart failure. Ejection fraction of 20%, complicated by PEA arrest requiring CPR intubation pressors, being monitored by Dr. Geronimo Nazario. 4. Aspiration pneumonia. She is on antibiotics per Infectious Disease. 5. Coagulopathy. She is on vitamin K daily. We will follow up on liver enzymes daily and INR daily. 6. Cardiogenic shock. Cardiology is following. 7. Chronic obstructive pulmonary disease. Pulmonary is following. 8. GI prophylaxis. PPI once daily. 9. Mild anemia. Continue to watch for now. 10. The above plans were discussed with the patient's nurse at bedside. All questions answered. I also spoke with Dr. Dietz. Please call us with any further questions. cc: MD Ray Hull MD Raphael K. Quansah, MD
[2018-11-02] MEDS: DOBUTAMINE 500/D5W 500 MG/250 ML IV.SOLN IV SCH (13:31)
[2018-11-02 13:44] LABS: pH(98.6) 7.02 (7.35-7.45)
[2018-11-02 15:29] LABS: ALB/GLOB RATIO 1.2; ALBUMIN 2.4 g/dL (3.5-5.0); CALCIUM 7.1 mg/dL (8.8-10.2); CREATININE 2.9 mg/dL (0.5-0.9); POTASSIUM 4.1 mmol/L (3.5-5.1); TOTAL BILIRUBIN 1.21 mg/dL (0.20-1.00); TOTAL PROTEIN 4.4 g/dL (6.3-8.3)
--- NOTE | 2018-11-02 16:58 | PULMONOLOGY PROGRESS NOTE ---
DATE: 11/02/2018 SUBJECTIVE: The patient remains sedated. She is on mechanical ventilation. She remains on Levophed but the Francisco-Synephrine has been weaned off. OBJECTIVE: The patient remains afebrile over the last 24 hours. Blood pressure 104/59, heart rate 101, respiratory rate 32, oxygen saturation 93%. HEENT pupils are equal and reactive but sluggish to light. Oropharynx appears clear. Neck is supple. Chest reveals coarse rhonchi bilaterally. Cardiac exam: S1, S2. Abdomen is soft. Extremities are slightly cool to the touch but warmer than yesterday. LABORATORIES: Sputum culture is pending because more incubation time is required. Arterial blood gas pH 7.34, pCO2 of 16, PO2 of 96 with a lactate of 16.2. White blood count 19.12, hemoglobin 11.8, platelet count 150,000. IMPRESSION: A 73-year-old with 1. Cardiomyopathy with reduction in ejection fraction. 2. Mild pulmonary edema with minimal infiltrates. 3. Acute hypoxemic respiratory failure. 4. Lactic acidosis presumed to be due to cardiogenic shock. 5. Chronic obstructive pulmonary disease. RECOMMENDATIONS: 1. Hold Lasix. We will give a 1 L fluid bolus to see if this will help clear her lactic acidosis. 2. Continue full ventilatory support until she has had pulmonary and hemodynamic improvement. 3. Consider tube feeds or Clinimix if she successfully is transitioned off vasopressors. 4. End of life discussions have been held with the family. If she has a terminal cardiac or pulmonary event she will be allowed to have a natural . TIME SPENT: Critical care management 30+ minutes. cc: Freedom Penny MD
--- NOTE | 2018-11-02 17:14 | NEPHROLOGY PROGRESS NOTE ---
DATE: 11/02/2018 SUBJECTIVE: She is unresponsive, on the ventilator. OBJECTIVE: Vital Signs: Blood pressure 87/50, heart rate 91, respirations 32, afebrile. Intake 1.7 L. Output 1.5 L, but really minimal urine output since that time. Skin: Warm and dry. Toes and fingers are cool and mildly cyanotic. HEENT: Conjunctivae are pink. Pupils are equal. Neck: Neck veins are increased. Heart: Regular and tachycardic. Lungs: Equal, tachypneic. No crackles. Abdomen: Soft, nontender. Bowel sounds are diminished. Extremities: Have no edema, clubbing, or cyanosis. IMPRESSIONS: 1. Acute kidney injury. Oliguric, ATN most likely. She does not meet criteria for dialysis today but likely will tomorrow. We will need to clarify goals of care with the family. 2. Electrolytes. Modest hypernatremia. No further intervention at this time. 3. Metabolic acidosis overlying respiratory alkalosis. Anion gap is 40 today which is actually higher than yesterday and her lactate has been consistently over 15. While there is nothing specific to do for this from the Nephrology perspective, it portends a very poor prognosis. cc: MD JAIME Munguia
[2018-11-02] MEDS: LEVOPHED 8 MG in D5 1/2 NS 250 ML IV SCH (19:41)
[2018-11-02] MEDS: PRAVACHOL PO SCH (21:29)
[2018-11-03] MEDS: SOLU-MEDROL IV SCH ×3 (03:19→18:14)
[2018-11-03 03:54] LABS: HEMATOCRIT 34.4 % (37.0-47.0); HEMOGLOBIN 11.8 g/dL (12.0-16.0); MCH 32.2 PG (27-31); MCHC 34.3 g/dL (33-37); MPV 12.7 FL (7.4-10.4); RBC 3.66 XMIL (4.2-5.4); RDW 15.9 % (11.5-14.5); WBC 14.87 X1000 (4.8-10.8)
[2018-11-03 04:18] LABS: ALBUMIN 2.9 g/dL (3.5-5.0); CALCIUM 7.3 mg/dL (8.8-10.2); CREATININE 3.3 mg/dL (0.5-0.9); PHOSPHORUS 5.6 mg/dL (2.7-4.5)
[2018-11-03] MEDS: DIPRIVAN 1% 1,000 MG/100 ML BOTTLE IV SCH ×4 (04:38→19:04)
[2018-11-03 04:58] LABS: ALLEN TEST YES; BE -6.2 mmoll (-3.0-3.0); BLOOD TYPE ARTERIAL; HCO3-(ACT) 20.1 mmoll (20.0-26.0); METHB 0.8 % (0.0-1.5); O2(CT) 14.8 mL/dL (15.0-23.0); O2HB 95.8 % (95.0-99.0); PO2(98.6) 86 mmHg (60-100); SAMPLE BLOOD; SAO2 98.3 % (95.0-100.0); SRATE 32 BPM; THB 10.9 g/dL (11.5-17.4); TVOL 550 mL; pH(98.6) 7.55 (7.35-7.45)
[2018-11-03 04:59] LABS: PCO2(98.6) 16 mmHg (35-45)
[2018-11-03 05:00] LABS: MODALITY VENTILATOR
[2018-11-03] MEDS: HUMULIN R SUBQ SCH ×4 (06:09→20:36)
[2018-11-03] MEDS: LOVENOX SUBQ SCH (06:10)
--- NOTE | 2018-11-03 06:36 | Diag Imaging Result Doc PS360 ---
CHEST-PORTABLE - 11/03/2018 INDICATION: respiratory failure COMPARISON: 11/02/2018 FINDINGS: Stable endotracheal tube and nasogastric tube in good position. There has been improvement in the faint atelectasis in the left lung base. Otherwise no infiltrates. Heart size is normal. IMPRESSION: Improvement in the faint infiltrate in the left lung base. No new abnormalities. Electronically signed by Tim Queen 11/03/2018 6:34 AM
[2018-11-03] MEDS: MAXIPIME 1 GM in NS 50 ML IV SCH (07:34)
[2018-11-03] MEDS: MIRALAX PO SCH (08:45)
[2018-11-03] MEDS: COLACE PO SCH ×2 (08:45→21:16)
[2018-11-03] MEDS: ASPIRIN PO SCH (08:45)
[2018-11-03] MEDS: VITAMIN K 10 MG in NS 50 ML IV SCH (08:49)
--- NOTE | 2018-11-03 09:02 | PROGRESS NOTE ---
DATE: 11/03/2018 ADDENDUM: Note, she had acute kidney injury. Dr. Valedz is following. She is oliguric. Most likely, this is ATN. Thinking about dialyzing some fluid off. Metabolic acidosis overlying respiratory alkalosis. Anion gap was 40 yesterday. Anion gap is about the same this morning. Creatinine 3.3, sodium 134, potassium 4.0, chloride 83, albumin 2.9. Should add to diabetes since she is on Solu-Medrol, sugars are running consistently above 230. Continue sliding scale. cc: Abilio Nichols MD
--- NOTE | 2018-11-03 09:13 | PROGRESS NOTE ---
DATE: 11/03/2018 SUBJECTIVE: Ms. Dubose was admitted on 10/30/2018. She is a patient of Dr. Ray Dan. She had shortness of breath for several days. Initially, dyspnea on exertion, subsequently got worse after that. She has no cardiac history. She was seen by Dr. Dan, and arranged for Cardiology for chest pain evaluation. She had been on a long course of steroids back in August, developed dyspnea, epigastric discomfort and dysphagia. It sounds like she may have had trouble swallowing, and possibly esophageal stricture. She described bilateral lower extremity edema so she was admitted with congestive heart failure. Echocardiogram with Doppler's on 10/30, very mild aortic valve sclerosis without stenosis. Moderate to severe mitral regurgitation, [id number] tricuspid regurgitation, and mild left ventricular enlargement. Left ventricular ejection fraction appeared to be about 20%. Mild left atrial enlargement appreciated. Cardiology has been following as well as Pulmonary Dr. Penny. She appears to have COPD exacerbation, peripheral cyanosis, cardiomegaly with systolic heart failure, pulmonary edema, pulmonary venous hypertension, fluid overload and pleural effusions. Chest x-ray today shows improvement in a faint infiltrate in the left lung base. OBJECTIVE: On exam, she appeared to be breathing comfortably. Remains afebrile, temperature 98.5 degrees, pulse 96, respirations 32, and blood pressure was 81/39. Did not appreciate distended neck veins. Lungs anterior lateral and clear. Cardiovascular regular rhythm and rate. Her blood sugars have been 131, 301, and 231. ASSESSMENT AND PLAN: 1. Cardiomegaly with reduction in ejection fraction. Congestive heart failure with reduced ejection fraction. 2. Mild pulmonary edema with minimal infiltrates. 3. Acute hypoxemic respiratory failure. 4. Lactic acidosis presumably secondary to congestive heart failure and cardiogenic shock. 5. Chronic obstructive pulmonary disease exacerbation. She was given 1 L of fluid yesterday to help the lactic acidosis. She is on full ventilatory support, and waiting on hemodynamic improvement to extubate. 6. For nutrition, she is getting Clinimix. Consider feeding tube if she is successfully transitioned off of vasopressors. 7. I have had discussions with the family about code status and review of her orders. She is on aspirin 81 mg a day, dobutamine drip, Colace 100 mg b.i.d., dopamine drip as well getting Xopenex, inhaled treatments and ipratropium bromide. We have her on cefepime 1 g IV q.12, methylprednisone 60 mg IV q.8, Protonix 40 mg IV daily, MiraLAX 17 g daily, Pravachol 20 mg every evening. She is on Diprivan. She is also getting linezolid 600 mg IV q.12. Her micro shows no growth from blood cultures from 11/01, and no growth from the urine culture. Sputum preliminary nonspecific. Appears to have normal hamzah. cc: Abilio Nichols MD
[2018-11-03] MEDS: XOPENEX NEB INH SCH ×3 (09:18→22:30)
[2018-11-03] MEDS: ATROVENT NEB INH SCH ×3 (09:18→22:30)
[2018-11-03] MEDS ORDERED: VANCOMYCIN 1 GM/NS 1 GM/250 ML IVPB IV SCH (10:00)
[2018-11-03] MEDS: ZYVOX 600 MG/D5W 600 MG/300 ML IVPB IV SCH ×2 (10:09→21:36)
[2018-11-03] MEDS: PROTONIX IV SCH (10:09)
--- NOTE | 2018-11-03 10:41 | PROVIDER PROGRESS NOTE ---
Progress Note SUBJECTIVE: No acute overnight events. Patient intubated and sedated OBJECTIVE: Last Vital Signs Temp 98.5 F 11/03/18 08:39 Pulse 95 H 11/03/18 10:17 Resp 32 H 11/03/18 10:02 BP 111/44 11/03/18 10:17 Pulse Ox 97 11/03/18 10:17 Height 5 ft 2 in Weight 127 lb 10.362 oz GEN: intubated, sedated HEENT: anicteric, ET in place NECK: supple PULM: CTAB, no wheezing CV: RRR, no murmurs ABD: soft, NT/ND, NABS EXT: no cce NEURO: sedated LABS 11/03/18 11/03/18 11/03/18 03:20 03:20 04:48 WBC 14.87 H Hgb 11.8 L Plt Count 154 pH 7.55 H pCO2 16 L* pO2 86 HCO3 20.1 Lactate 15.70 H* Sodium 134 L Potassium 4.0 Chloride 83 L Carbon Dioxide 14 L BUN 77 H Creatinine 3.3 H Glucose 241 H A/P: Ms. Nova Dubose is a 73 year old woman who was initially admitted with acute on chronic systolic CHF exacerbation (EF 20%) and COPD whose course was complicated by PEA arrest requiring CPR, intubation, and pressors found to have ischemic liver injury. #Ischemic liver injury: improving; trend LFTs daily, maintain MAPS >60 #Coagulopathy: give vitamin K 10mg IV x3 days; trend INR daily #Aspiration PNA: post code: on abx her ID #PEA arrest: likely 2/2 to hypoxia; defer mgmt to primary team #Cardiogenic shock: on pressors: cards following #QUOC: trending Cr, renally dose meds #Lactic acidosis: 2/2 arrest #CHF: cardiology following #COPD: pulm following #GI ppx: PPI IV once daily Recommend palliative care consultation. Will sign off. Please call with questions.
[2018-11-03] MEDS: DOBUTAMINE 500/D5W 500 MG/250 ML IV.SOLN IV SCH (10:48)
[2018-11-03] MEDS: LEVOPHED 8 MG in D5 1/2 NS 250 ML IV SCH (10:48)
[2018-11-03] MEDS ORDERED: SODIUM BICARBONATE 8.4% 150 MEQ in D5W 1,000 ML IV SCH (13:45)
--- NOTE | 2018-11-03 14:19 | NEPHROLOGY PROGRESS NOTE ---
DATE: 11/03/2018 SUBJECTIVE: Remains unresponsive on the ventilator. OBJECTIVE: Vital Signs: Blood pressure 81/39, heart rate 98, respirations 32, afebrile. Intake 2.4 L. Output 700 mL. Physical Examination: Unresponsive. Cool extremities. Neck veins are not appreciated. Increased respiratory rate. Cardiovascular: Heart is regular, tachycardic. Lungs are equal. Hyperpneic. No crackles. Abdomen: Soft. Decreased bowel sounds. Extremities: There is 1+ edema. No clubbing or cyanosis. IMPRESSION: Acute kidney injury. BUN and creatinine are slowly rising. Urine output is low. She has persistent anion gap metabolic acidosis with a lactate of 15. She does not have any absolute indications for dialysis today but I will discuss this with Dr. Penny as it would be appropriate to initiate treatment if care will continue. cc: Chandan Valdez MD
--- NOTE | 2018-11-03 14:25 | INFECTIOUS DISEASE PROGRESS NO ---
DATE: 11/03/2018 PRESENT ILLNESS: The patient has left lower lobe aspiration pneumonia. MEDICATIONS: The patient has been on the combination of cefepime and Zyvox now for 2 days. PHYSICAL EXAMINATION: Vital Signs: Temperature is 98.5 degrees, pulse 98, respirations 32, blood pressure 81/59. Generally, this is an ill-appearing elderly female. She is intubated and sedated. Head, Eyes, Ears, Nose, and Throat: She has an orotracheal tube in place as well as a nasogastric tube in place. Neck: No meningismus. Lungs: Clear to auscultation. Cardiovascular: Heart rate is regular. Occasionally there are premature beats. Abdomen: Soft and nontender. Neurologic: The patient is the patient is obtunded. She did not respond to verbal stimuli. The patient does not have a tremor. DIAGNOSTIC STUDIES: Chest x-ray shows improvement in the patient's left lower lobe infiltrate. Blood and urine cultures are negative. Sputum culture grew normal hamzah and yeast. Creatinine is up to 3.3, GFR is 14. Blood gases show a pH of 7.55, a PO2 of 86, and a pCO2 of 16. CBC shows a white count of 14,870, hemoglobin 11.8, and platelet count 154,000. ASSESSMENT AND PLAN: Patient has an aspiration pneumonia with a procalcitonin of less than 0.1 which makes a bacterial pneumonia very unlikely; however, she seems to be improving after being on antibiotics so for now I am going to continue them. COMORBIDITIES: 1. Patient is elderly. 2. She also has diabetes mellitus. 3. She is a cigarette smoker. cc: Kavon Guerra MD
[2018-11-03] MEDS: SODIUM BICARBONATE 8.4% 150 MEQ in D5W 1,000 ML IV SCH (16:35)
[2018-11-03] MEDS ORDERED: ALBUMIN 25% IV ONE (18:34)
--- NOTE | 2018-11-03 19:08 | Extremity Venous Study ---
PROCEDURE NAME: Venous U/S Bilateral Legs - 11/01/2018 REQUESTING PHYSICIAN: Dr. Geronimo Nazario. SALVAGE WINDER: Fabrice. INDICATIONS: 1. Evaluation for PE. 2. Respiratory failure. FINDINGS: Images of the bilateral lower extremity venous systems were obtained in both sagittal and transverse planes. Doppler was used to evaluate veins for spontaneity, phasicity, respiratory excursion, and digital augmentation. RESULTS: Normal venous compression. Normal venous flow. No obvious superficial or deep venous thrombosis noted. INTERPRETATION: Essentially normal bilateral lower extremity venous study. cc: MD Geronimo Armendariz MD
--- NOTE | 2018-11-03 19:18 | PROGRESS NOTE ---
DATE: 11/03/2018 SUBJECTIVE: The patient continues sedated on mechanical ventilation. She continues on Levophed and dobutamine. OBJECTIVE: Vital Signs: Blood pressure 100/40, heart rate 99, oxygen saturation 96% on ventilator with FiO2 of 35%. Neck: Jugular venous distention cannot be appreciated. Chest: Clear to auscultation anteriorly. Cardiac exam: Reveals a regular rate and rhythm without appreciable murmur or gallop. Extremities: Without edema. LABORATORY DATA: Includes a white blood cell count of 14.7, hematocrit 34.4, hemoglobin 11.8, platelet count 154,000. Sodium 134, potassium 4.0, chloride 83, carbon dioxide 14, BUN 77, creatinine 3.3. Albumin 2.9. IMPRESSION: 1. Hypoxemic respiratory failure. 2. Severe cardiomyopathy with left ventricular ejection fraction 20%. Suspect possibly ischemic cardiomyopathy in light of the patient's coronary risk profile. 3. Recent shock with associated acute renal failure and metabolic acidosis. 4. Chronic obstructive pulmonary disease. RECOMMENDATIONS: 1. Agree with holding Lasix and giving intravenous fluids with bicarbonate in an effort to improve her metabolic acidosis. 2. Continue current pressors. 3. Continue ventilator support. cc: Renny Lima MD
[2018-11-03] MEDS: PRAVACHOL PO SCH (20:35)
[2018-11-04] MEDS: SODIUM BICARBONATE 8.4% 150 MEQ in D5W 1,000 ML IV SCH (00:07)
--- NOTE | 2018-11-04 02:05 | PULMONOLOGY PROGRESS NOTE ---
DATE: 11/03/2018 LABORATORIES: White blood count 14.87, hemoglobin 11.8, platelet count 154,000. Arterial blood gas reveals a pH of 7.55, pCO2 of 16, PO2 of 86, with a lactate of 15.7. Sodium 134, potassium 4.0, chloride 83, bicarbonate 14, BUN 77, creatinine 3.3. Glucose 231. Chest x-ray reveals cardiomegaly with no significant pulmonary edema and no significant pulmonary vascular congestion. IMPRESSION: A 73-year-old with 1. Cardiomyopathy with a reduction in ejection fraction. 2. Status post cardiopulmonary arrest. 3. Acute hypoxemic respiratory failure. 4. Acute renal failure. 5. Chronic obstructive pulmonary disease. 6. Ongoing lactic acidosis and cardiogenic shock. RECOMMENDATIONS: 1. Continue to hold Lasix. We will give additional bicarbonates and fluid to see if her lactic acidosis will improve. 2. Continue ventilatory support. We will adjust minute ventilation given her alkalemia. 3. Consider tube feeds if her lactic acid begins to improve. 4. Prognosis is poor. TIME SPENT: Critical care of 30+ minutes. cc: Freedom Penny MD
[2018-11-04] MEDS: DIPRIVAN 1% 1,000 MG/100 ML BOTTLE IV SCH ×4 (02:06→18:16)
[2018-11-04] MEDS: SOLU-MEDROL IV SCH ×3 (03:13→18:15)
[2018-11-04 04:47] LABS: ALLEN TEST YES; BE -1.7 mmoll (-3.0-3.0); BLOOD TYPE ARTERIAL; HCO3-(ACT) 23.4 mmoll (20.0-26.0); METHB 0.8 % (0.0-1.5); O2(CT) 12.7 mL/dL (15.0-23.0); PCO2(98.6) 23 mmHg (35-45); PO2(98.6) 51 mmHg (60-100); SAMPLE BLOOD; SAO2 88.4 % (95.0-100.0); SRATE 16 BPM; THB 10.4 g/dL (11.5-17.4); TVOL 700 mL; pH(98.6) 7.54 (7.35-7.45)
[2018-11-04 04:48] LABS: MODALITY VENTILATOR; O2HB 86.6 % (95.0-99.0)
[2018-11-04] MEDS: LEVOPHED 8 MG in D5 1/2 NS 250 ML IV SCH (04:48)
[2018-11-04 05:35] LABS: HEMATOCRIT 32.5 % (37.0-47.0); HEMOGLOBIN 11.3 g/dL (12.0-16.0); MCH 32.4 PG (27-31); MCHC 34.8 g/dL (33-37); MCV 93.1 FL (81-99); MPV 12.7 FL (7.4-10.4); RBC 3.49 XMIL (4.2-5.4); RDW 15.9 % (11.5-14.5); WBC 17.33 X1000 (4.8-10.8)
[2018-11-04] MEDS: HUMULIN R SUBQ SCH ×5 (06:03→21:00)
--- NOTE | 2018-11-04 07:47 | Diag Imaging Result Doc PS360 ---
EXAM: CHEST-PORTABLE INDICATION: respiratory failure TECHNIQUE: One view COMPARISON: 11/03/2018 FINDINGS: Support tubes and lines are in stable positions. The patient is rotated slightly toward the right. The minimal left basilar atelectasis is stable. No new consolidation is identified. Cardiac silhouette is stable. IMPRESSION: Stable chest. Electronically signed by Freddie Gramajo 11/04/2018 7:45 AM
[2018-11-04] MEDS ORDERED: MAXIPIME 1 GM in NS 50 ML IV SCH (08:00)
[2018-11-04] MEDS: COLACE PO SCH ×2 (08:26→21:01)
[2018-11-04] MEDS: ASPIRIN PO SCH (08:54)
[2018-11-04] MEDS: VITAMIN K 10 MG in NS 50 ML IV SCH (08:54)
[2018-11-04] MEDS: MIRALAX PO SCH (08:54)
[2018-11-04 09:03] LABS: ALB/GLOB RATIO 1.1; ALBUMIN 2.5 g/dL (3.5-5.0); CREATININE 3.6 mg/dL (0.5-0.9); MAGNESIUM 2.2 mg/dL (1.5-2.7); PHOSPHORUS 6.7 mg/dL (2.7-4.5); POTASSIUM 4.5 mmol/L (3.5-5.1); TOTAL BILIRUBIN 1.06 mg/dL (0.20-1.00); TOTAL PROTEIN 4.8 g/dL (6.3-8.3)
[2018-11-04 09:15] LABS: CALCIUM 6.3 mg/dL (8.8-10.2)
--- NOTE | 2018-11-04 09:17 | PROGRESS NOTE ---
DATE: 11/04/2018 SUBJECTIVE: Ms. Dubose is still on the ventilator, unresponsive, a lot of generalized swelling. OBJECTIVE: She remains afebrile, temperature 98.5 degrees, pulse 97, respirations 16, blood pressure 126/64. Her pupils did not visualize. Eyes stay closed. Her neck veins are hard to discern. She has a jugular IV in the left side. Her lungs are clear anterolateral. Abdomen appears soft, nondistended. Generalized edema in her legs and arms. Heels are padded. DATA: Her urine output was 1200 mL. Chest x-ray this morning read as stable. Support tubes and lines stable position. Patient rotated slightly toward the right, minimal left basilar atelectasis. No new signs of consolidation. ASSESSMENT AND PLAN: 1. Cardiomyopathy, congestive heart failure with reduced ejection fraction and systolic dysfunction. 2. Status post cardiopulmonary arrest. 3. Acute hypoxemic respiratory failure. 4. Acute renal failure. 5. Chronic obstructive pulmonary disease. 6. Ongoing lactic acidosis following her cardiogenic shock. We are holding the Lasix. Dr. Valdez is going to discuss dialysis with Dr. Penny, giving additional bicarbonates and some fluid to see if her lactic acidosis will improve. We will continue ventilatory support. Consider tube feeds if her lactic acid will improve. Her prognosis looks poor. LABS: Looking at her labs his morning, white count 17,330, hematocrit is 32, hemoglobin 11, platelet count 159,000. Blood sugar is 294, 384 and 397, so we will probably put her on a little higher sliding scale. REVIEW OF ORDERS: She is on Maxipime 1 g IV q.24 hours. She is on dobutamine drip and dopamine drip. She is on methylprednisone 60 mg IV q.8. Getting Protonix 40 mg IV q.24 hours and Pravachol 20 mg daily, and linezolid 600 mg IV q.12 h. cc: Abilio Nichols MD
[2018-11-04] MEDS: XOPENEX NEB INH SCH ×3 (09:28→21:36)
[2018-11-04] MEDS: ATROVENT NEB INH SCH ×3 (09:28→21:36)
[2018-11-04] MEDS: PROTONIX IV SCH (10:13)
[2018-11-04] MEDS: LOVENOX SUBQ SCH (10:13)
[2018-11-04] MEDS: ZYVOX 600 MG/D5W 600 MG/300 ML IVPB IV SCH ×2 (10:13→21:04)
--- NOTE | 2018-11-04 10:45 | PROGRESS NOTE ---
DATE: 11/04/2018 SUBJECTIVE: Patient continues sedated on ventilator. She is on IV Levophed and dobutamine both of which are being weaned. OBJECTIVE: Blood pressure 126/51, heart rate 98. Oxygen saturation 98% on ventilator with FiO2 of 35%. Neck: There is no significant jugular venous distention. Chest: Clear to auscultation anteriorly. Cardiac Exam: Reveals a regular rate and rhythm without appreciable murmur or gallop. There is no evidence of peripheral edema. LABORATORY DATA: Includes a white blood cell count of 17.33, hematocrit 30.5, hemoglobin 11.3, platelet count 159,000. Sodium 131, potassium 4.5 chloride 98, carbon dioxide 18. BUN 89, creatinine 3.6. Albumin 2.5. IMPRESSION: 1. Hypoxemic respiratory failure. 2. Severe cardiomyopathy with left ejection fraction 20%. Likely ischemic cardiomyopathy. 3. Recent shock with associated acute renal failure and metabolic acidosis. 4. Chronic obstructive pulmonary disease. RECOMMENDATIONS: 1. Wean dobutamine off and subsequently wean off Levophed as permitted clinically. 2. Continue IV fluid administration with bicarbonate in effort to improve metabolic acidosis. cc: Renny Lima MD
--- NOTE | 2018-11-04 12:05 | NEPHROLOGY PROGRESS NOTE ---
DATE: 11/04/2018 SUBJECTIVE: Unchanged. OBJECTIVE: Vital Signs: Blood pressure 126/64, heart rate 97, respirations 16, afebrile. Intake 4 L , output 700 mL. PHYSICAL EXAMINATION: General: Sedated on the ventilator. Skin: Warm and dry. Neck: Neck veins are not appreciated. Heart: Regular. Lungs: Equal. No longer tachypneic. Extremities: Have 1+ edema. No clubbing or cyanosis. IMPRESSION AND PLAN: Acute kidney injury. No recovery. No labs are available yet this morning. I will collect these. She is certainly reaching typical criteria for renal replacement therapy and her urine volume has been low but nonoliguric. I discussed the case with Dr. Penny and Dr. Nichols. Ultimately, I do not believe dialysis will change her survival and so I will not offer that therapy at this time. We will continue dialogue. cc: Chandan Valdez MD
--- NOTE | 2018-11-04 12:54 | INFECTIOUS DISEASE PROGRESS NO ---
DATE: 11/04/2018 HISTORY OF PRESENT ILLNESS: The patient initially appeared to have a left lower lobe aspiration pneumonia. This appears to have cleared. MEDICATIONS: The patient has been on cefepime and Zyvox for 3 days. PHYSICAL EXAMINATION: Vital signs: Temperature is 98.5 degrees, pulse 97, respirations 16, blood pressure 126/64. Generally: This is an ill-appearing, elderly female. She is intubated and sedated. Head, eyes, ears, nose, and throat: The patient has an orotracheal and nasogastric tube in place. Neck: No meningismus. Lungs: Clear to auscultation. Cardiovascular: Heart rate is regular. Abdomen: Soft and nontender. Neurologic: Patient is sedated. There is no tremor. LAB AND X-RAY: Chest x-ray shows a minimal left basilar atelectasis. Sputum grew out normal hamzah and yeast. Blood and urine cultures [place]. [place] [address], hemoglobin 11.3, and platelet count 159,000. Blood gases show a pH of 7.54, PO2 of 51, a pCO2 of 23, creatinine is 3.6. GFR is 12. ASSESSMENT AND PLAN: The patient's aspiration pneumonia I think has cleared. My plan is to discontinue the patient's antibiotics. The patient does have leukocytosis, but I think this is secondary to the steroids she is receiving. COMORBIDITIES: She is elderly. She also has diabetes mellitus and she is a cigarette smoker. I am signing off on the patient's case. I am available to see the patient on a p.r.n. basis. I am stopping her antibiotics today. cc: Kavon Guerra MD
[2018-11-04] MEDS: PRAVACHOL PO SCH (21:04)
[2018-11-05] MEDS: LEVOPHED 8 MG in D5 1/2 NS 250 ML IV SCH (00:09)
[2018-11-05] MEDS: SOLU-MEDROL IV SCH ×3 (02:27→18:06)
--- NOTE | 2018-11-05 03:01 | PULMONOLOGY PROGRESS NOTE ---
DATE: 11/04/2018 SUBJECTIVE: The patient remains poorly responsive. She continues to require vasopressors and dobutamine. OBJECTIVE: Vital Signs: The patient has been afebrile for the last 24 hours. Blood pressure 113/66, heart rate 96, respiratory rate 14. HEENT: Pupils are equal but sluggish. Oropharynx appears clear, but endotracheal tube in position. Neck: Supple. Chest: Reveals good air entry bilaterally. Cardiac: S1, S2. Abdomen: Soft with no bowel sounds present. Extremities: Warmer to the touch. LABORATORIES: Generous cardiac silhouette. No significant pathology within the hemothorax. White blood count 17.3, hemoglobin 11.3, platelet count 159,000. Arterial blood gas, pH 7.54, pCO2 of 23, PO2 of 51 with lactate of 14.9. IMPRESSION: A 73-year-old with 1. Cardiomyopathy with pump failure. 2. Lactic acidosis from cardiogenic shock. 3. Acute hypoxemic respiratory failure. 4. Acute renal failure. 5. Status post cardiopulmonary arrest. RECOMMENDATIONS: 1. Continue to hold Lasix. She is in renal failure and Nephrology has been consulted. I doubt that dialysis will change her outcome given her ongoing acidosis. 2. Continue ventilatory support with adjustments to decrease alkalemia. 3. Consider tube feeds, if she improves, although this is felt to be unlikely. 4. Prognosis is poor and end of life discussions have been held with the family. If she has a life ending respiratory or cardiac event, she will be allowed to have a natural . Critical Care Management: 30+ minutes cc: Freedom Penny MD [facility]
[2018-11-05] MEDS: DIPRIVAN 1% 1,000 MG/100 ML BOTTLE IV SCH (04:31)
[2018-11-05 04:44] LABS: ALLEN TEST YES; BE 2.2 mmoll (-3.0-3.0); BLOOD TYPE ARTERIAL; HCO3-(ACT) 26.6 mmoll (20.0-26.0); METHB 1.3 % (0.0-1.5); O2(CT) 14.8 mL/dL (15.0-23.0); O2HB 95.6 % (95.0-99.0); PCO2(98.6) 24 mmHg (35-45); PO2(98.6) 91 mmHg (60-100); SAMPLE BLOOD; SAO2 97.8 % (95.0-100.0); SRATE 14 BPM; THB 10.9 g/dL (11.5-17.4); TVOL 700 mL
[2018-11-05 04:46] LABS: MODALITY VENTILATOR; pH(98.6) 7.59 (7.35-7.45)
[2018-11-05 04:58] LABS: HEMATOCRIT 30.9 % (37.0-47.0); HEMOGLOBIN 10.7 g/dL (12.0-16.0); MCHC 34.6 g/dL (33-37); MCV 92.5 FL (81-99); MPV 12.3 FL (7.4-10.4); RBC 3.34 XMIL (4.2-5.4); RDW 15.3 % (11.5-14.5); WBC 18.35 X1000 (4.8-10.8)
[2018-11-05 06:14] LABS: AGAP 33; BUN 99 mg/dL (8-22); CHLORIDE 80 mmol/L (98-107); COSMO 300; CREATININE 3.8 mg/dL (0.5-0.9); GLUCOSE 117 mg/dL (70-104); POTASSIUM 4.9 mmol/L (3.5-5.1); SODIUM 134 mmol/L (136-145); TCO2 21 mmol/L (25-35)
[2018-11-05] MEDS: HUMULIN R SUBQ SCH ×4 (06:15→20:32)
[2018-11-05 06:16] LABS: ALBUMIN 2.3 g/dL (3.5-5.0); ALKALINE PHOSPHATASE 90 U/L (32-104); TOTAL BILIRUBIN 1.05 mg/dL (0.20-1.00); TOTAL PROTEIN 4.5 g/dL (6.3-8.3)
[2018-11-05 06:17] LABS: GOT 104 U/L (10-30); GPT 727 U/L (10-36)
[2018-11-05] MEDS: LOVENOX SUBQ SCH (06:24)
--- NOTE | 2018-11-05 06:37 | Diag Imaging Result Doc PS360 ---
CHEST-PORTABLE - 11/05/2018 INDICATION: respiratory failure COMPARISON: 11/04/2018 FINDINGS: Support tubes are stable. Stable low lung volumes. Stable hazy bibasilar infiltrate and/or atelectasis. Stable cardiomegaly and pulmonary vascular congestion. No large pleural effusion. IMPRESSION: No complication or change from prior. Electronically signed by Tim Queen 11/05/2018 6:35 AM
[2018-11-05] MEDS: COLACE PO SCH ×2 (08:42→20:32)
[2018-11-05] MEDS: ASPIRIN PO SCH (08:42)
[2018-11-05] MEDS: MIRALAX PO SCH (08:42)
[2018-11-05] MEDS: XOPENEX NEB INH SCH ×3 (09:17→21:39)
[2018-11-05] MEDS: ATROVENT NEB INH SCH ×3 (09:17→21:39)
--- NOTE | 2018-11-05 09:48 | PROGRESS NOTE ---
DATE: 11/05/2018 SUBJECTIVE: Ms. Dubose is still on the ventilator, still unresponsive. Remains afebrile. OBJECTIVE: Temperature 98.1 degrees, pulse 90, respirations 16, blood pressure 102/44. Pupils are equal and round. Lungs are clear in all lung flores. Cardiovascular Examination: Regular rhythm and rate without murmur or S3. Abdomen is soft. Skin is warm and dry. Urine output is 2100 mL. Chest x-ray, no complications. Support tubes are stable. Stable low lung volumes. Stable hazy bibasilar infiltrate versus atelectasis. Stable cardiomegaly and pulmonary vascular congestion. No large pleural effusions. ASSESSMENT AND PLAN: Cardiomyopathy with pump failure, systolic dysfunction, lactic acidosis from cardiogenic shock, and acute hypoxemic respiratory failure, complicated by acute renal failure. She is status post cardiopulmonary arrest. Seems to have a high acid level. I think dialysis was discussed. I do not think family would like to pursue dialysis at this time. The patient initially appeared to have a left lower lobe aspiration pneumonia which appears to have cleared. Had been on cefepime and Zyvox. I think this is the 4th day. REVIEW OF LABS: White count still elevated at 18,350, hematocrit is 30, platelet count 134,000. Chemistry: Sodium 134, potassium 4.9, chloride 80, BUN 99, creatinine 3.8 which is up from 3.6 yesterday. Blood sugars 249, 170, 117, and 116. Calcium is running in the 6. Albumin is 2.3. REVIEW OF ORDERS: I do not see any change at this point. cc: Abilio Nichols MD
[2018-11-05] MEDS: PROTONIX IV SCH (10:57)
[2018-11-05] MEDS ORDERED: ALBUMIN 25% IV ONE (17:53)
[2018-11-05] MEDS ORDERED: SODIUM CHLORIDE 0.9% INJ SCH (18:00)
[2018-11-05] MEDS: PRIMACOR 20 MG/D5W 100 ML 20 MG/100 ML IVPB IV SCH (18:15)
[2018-11-05] MEDS: NS 1,000 ML IV SCH (18:17)
--- NOTE | 2018-11-05 18:38 | GASTROENTEROLOGY PROGRESS NOTE ---
DATE: 11/05/2018 SUBJECTIVE: She is resting in bed. She is intubated, vented, and sedated with Diprivan. She continues on low-dose pressors in the form of Levophed. She is also on dobutamine drip and IV fluids. I spoke to the family at bedside. According to the nursing records, patient had a hard brown stool yesterday afternoon. In the last 24 hours, no fever was reported. OBJECTIVE: Current Vitals: Temperature 98.3, pulse 92 respiratory rate 14, blood pressure 105/43, saturating 95% on ventilator with FiO2 35%. General Appearance: Lying in bed, intubated, vented, sedated. HEENT: Positive pallor. No icterus. ET tube in place. Neck: Supple. Abdomen: Soft, nondistended. No guarding. Extremities: No cyanosis, clubbing. Neurologic: She is sedated. LABS: Hemoglobin and hematocrit are 10.7 and 30.9, white count 18.35, platelet count of 134,000. ABGs showing pH 7.59, pCO2 24, pO2 91, and bicarb 26.6. This was on 35% FiO2. Lactate is 10.8. Sodium 134, potassium 4.9, chloride of 80, bicarb of 21.9, BUN of 99, creatinine 3.8, glucose of 117, calcium 6, total bilirubin 1.05, AST 104, ALT 727, alkaline phosphatase 92, total protein 4.5, Albumin 2.3. Blood cultures x2 negative at 48 hours on 10/22/2018. Urine culture no growth. Sputum culture done on 10/22/2018 showing more incubation required, but final preliminary changed to normal hamzah and positive yeast. IMPRESSION AND PLAN: 1. Elevated liver enzymes are trending down. She had shock liver from hypoperfusion which is improving. Continue to maintain the mean arterial pressure at more than 60 mmHg. 2. Cardiomyopathy with pump failure, causing cardiogenic shock with lactic acidosis. This is being monitored per critical care team. 3. Respiratory failure. She is on ventilator support. 4. Malnutrition. She is on nasogastric tube feeding. 5. Aspiration pneumonia. She is on antibiotics with cefepime and Zyvox. 6. Diabetes mellitus, on sliding scale insulin. 7. Acute kidney injury, being followed by nephrology team. 8. Congestive heart failure, being followed by cardiology team. 9. Chronic obstructive pulmonary disease. Pulmonary is following. 10. Gastrointestinal prophylaxis with proton pump inhibitors once daily. 11. Pulseless electrical activity arrest, status post cardiopulmonary resuscitation, requiring intubation and pressors. Aware. Being managed by primary team 12. Above plan of care was discussed with the patient and his family at bedside. All questions answered. Please call if any further questions. cc: MD Ray Hull MD [facility]
[2018-11-05] MEDS: NEXIUM IV SCH (19:03)
[2018-11-05] MEDS: PRAVACHOL PO SCH (20:31)
--- NOTE | 2018-11-05 20:45 | NEPHROLOGY PROGRESS NOTE ---
DATE: 11/05/2018 SUBJECTIVE: No change. She is a little more arousable, however. OBJECTIVE: Vital Signs: Blood pressure 107/47, heart rate 91, respirations 12. Afebrile. Intake 1.8 L. Output 1.3 L, with 1 L being urine. PHYSICAL EXAMINATION: General: Sedated on the ventilator. Opens eyes occasionally to palpation. Skin: Warm and dry. Neck: Neck veins are not appreciated. Heart: Regular. Lungs: Equal with a few scattered crackles. Abdomen: Soft, benign. Decreased bowel sounds. Extremities: 2+ edema. No clubbing or cyanosis. IMPRESSION: Acute kidney injury. Smaller change in her BUN and creatinine over the last 24 hours and her urine output has picked up. She remains acidotic, though her lactate is down to 10.8. We will adjust her vent settings. Continue to observe. I had a conversation with the family last night and expressed that I did not think dialysis would be appropriate because I did not think it would change her outcome. We will continue to observe and remain open to the possible need of renal replacement. cc: Chandan Valdez MD
--- NOTE | 2018-11-05 21:05 | PROGRESS NOTE ---
DATE: 11/05/2018 SUBJECTIVE: Patient continues on ventilator and is sedated. Propofol has been discontinued several hours ago, but she remains sedated at this point. She is currently on low-dose Levophed intravenously. OBJECTIVE: Vital Signs: Blood pressure 115/50, heart rate 96, oxygen saturation 97% on ventilator with FiO2 of 35%. Neck: Jugular venous distention suggests normal central venous pressure. Chest: Is clear to auscultation anteriorly. Cardiac exam: Is a regular rate and rhythm without appreciable murmur or gallop. Extremities: There is no evidence of peripheral edema. Extremities are warm. LABORATORY DATA: Includes a white blood cell count 18.35, hematocrit 30.9, hemoglobin 10.7, platelet count 134. Sodium 134, potassium 4.9, chloride 80, carbon dioxide 21, BUN 99, creatinine 3.8. Glucose 117, albumin 2.3. IMPRESSION: 1. Hypoxemic respiratory failure. 2. Severe cardiomyopathy, probably ischemic in origin. 3. Status post cardiopulmonary arrest with pulseless electrical activity. I suspect she may very well have had underlying ischemia of the myocardium provoking this. 4. Chronic obstructive pulmonary disease. 5. Recent shock with resultant acute renal failure. RECOMMENDATIONS: 1. Maintain IV hydration. Will continue normal saline at 75 mL/hour. 2. Try to augment cardiac performance with Milrinone. Overall prognosis appears to be questionable and this was discussed with the family at the bedside. cc: Renny Lima MD
[2018-11-06] MEDS: SOLU-MEDROL IV SCH ×3 (02:09→18:03)
[2018-11-06 04:22] LABS: HEMATOCRIT 28.1 % (37.0-47.0); HEMOGLOBIN 9.9 g/dL (12.0-16.0); MCH 32.1 PG (27-31); MCHC 35.2 g/dL (33-37); MCV 91.2 FL (81-99); MPV 12.4 FL (7.4-10.4); RBC 3.08 XMIL (4.2-5.4); RDW 15.1 % (11.5-14.5); WBC 17.37 X1000 (4.8-10.8)
[2018-11-06] MEDS: LEVOPHED 8 MG in D5 1/2 NS 250 ML IV SCH (04:33)
[2018-11-06 04:48] LABS: ALLEN TEST YES; BE -3.9 mmoll (-3.0-3.0); BLOOD TYPE ARTERIAL; HCO3-(ACT) 21.9 mmoll (20.0-26.0); O2(CT) 13.5 mL/dL (15.0-23.0); O2HB 96.1 % (95.0-99.0); PCO2(98.6) 24 mmHg (35-45); PO2(98.6) 80 mmHg (60-100); SAMPLE BLOOD; SAO2 98.8 % (95.0-100.0); SRATE 10 BPM; THB 9.9 g/dL (11.5-17.4); TVOL 700 mL; pH(98.6) 7.49 (7.35-7.45)
[2018-11-06 04:49] LABS: MODALITY VENTILATOR
[2018-11-06] MEDS: NS 1,000 ML IV SCH ×4 (05:40→17:58)
[2018-11-06] MEDS: LOVENOX SUBQ SCH (05:41)
[2018-11-06] MEDS: PRIMACOR 20 MG/D5W 100 ML 20 MG/100 ML IVPB IV SCH ×4 (05:52→21:44)
[2018-11-06] MEDS: HUMULIN R SUBQ SCH ×4 (06:01→21:46)
--- NOTE | 2018-11-06 06:31 | Diag Imaging Result Doc PS360 ---
CHEST-PORTABLE - 11/06/2018 INDICATION: respiratory failure COMPARISON: 11/05/2018 FINDINGS: Support tubes are stable. Stable small left pleural effusion with a small basilar infiltrate. The central infiltrates have cleared. The right lung is also clear. Heart size remains normal. IMPRESSION: Improvement from prior. Persistent small infiltrate and effusion at the left lung base. Electronically signed by Tim Queen 11/06/2018 6:28 AM
--- NOTE | 2018-11-06 08:05 | PULMONOLOGY PROGRESS NOTE ---
DATE: 11/05/2018 SUBJECTIVE: The patient has been on a sedation medication today, but remains obtunded. She remains on Levophed. She has been afebrile for the last 24 hours. OBJECTIVE: Vital Signs: Blood pressure 105/51, heart rate 97, respiratory rate 14, oxygen saturation 96%. HEENT: Pupils are small and reactive. Oropharynx appears dry. Neck: Neck is supple. Chest: Reveals good air entry bilaterally. Cardiac exam: S1, S2. Abdomen: Soft with diminished bowel sounds. Extremities: Reveal trace to 1+ peripheral edema. LABORATORIES/X-RAYS: Chest x-ray reveals shallow lung volumes with bibasilar infiltrates, and cardiomegaly with mild vascular congestion. Arterial blood gas reveals a pH of 7.59, pCO2 of 24, PO2 of 91 with a lactate of 10.8. Sodium 134, potassium 4.9, chloride 80, bicarbonate 21. BUN 99, creatinine 3.8. IMPRESSION: A 73-year-old with: 1. Cardiomyopathy with pump failure. 2. Lactic acidosis from cardiogenic shock. 3. Acute hypoxemic respiratory failure. 4. Acute renal failure. 5. Encephalopathy, possibly related to hypoxemia. 6. Status post cardiopulmonary arrest. 7. Shock liver. DISCUSSION: A 73-year-old with problems outlined above. She has had marginal improvement over the last 24 hours with decreasing lactate, but she continues to have significant lactic acidosis and requiring vasopressors. Her shock liver is resolving, which is also encouraging. Unfortunately, she has renal failure along with persistent altered mental status. Her prognosis is extremely poor, and family is aware that she will likely , but has made some marginal improvement. RECOMMENDATIONS: 1. Continue to wean vasopressors as tolerated. 2. Minor ventilatory adjustments for alkalemia. 3. Consider tube feeds if vaso pressures can be weaned off. 4. Prognosis remains poor. End of life discussions have been held on a daily/frequent basis, and she will be allowed to have a natural if she has a terminal pulmonary or cardiac event. TIME SPENT IN CRITICAL CARE MANAGEMENT: 30+ minutes. cc: Freedom Penny MD
[2018-11-06] MEDS: MIRALAX PO SCH (08:57)
[2018-11-06] MEDS: ASPIRIN PO SCH (08:57)
[2018-11-06] MEDS: COLACE PO SCH ×2 (08:58→21:45)
--- NOTE | 2018-11-06 09:34 | PROGRESS NOTE ---
DATE: 11/06/2018 SUBJECTIVE: Ms. Dubose is on the ventilator and unresponsive. Her monitor shows sinus rhythm. OBJECTIVE: Temperature 98.5, pulse is 90, respirations 14, and blood pressure 86/38. Pupils are equal. No distended neck veins. Lungs are clear in all lung flores. Cardiovascular exam with regular rhythm and rate without murmur or S3. Urine output is 1700 mL. Chest x-ray this morning improvement from prior with persistent small infiltrative effusion of the left lung. Support tubes are stable. Stable small left pleural effusions, and a small basilar infiltrate. Central infiltrates are clear. ASSESSMENT AND PLAN: 1. Cardiomyopathy with pump failure. Lactic acidosis from cardiogenic shock, acute hypoxemic respiratory failure on the ventilator. Continue to try and wean. 2. Acute renal failure, suspected acute tubular necrosis. 3. Encephalopathy secondary to hypoxemia and acidosis. 4. Status post cardiopulmonary arrest. 5. Shock liver with elevated transaminases. LABORATORY: Review of labs from today, white count still elevated at 17,370, hematocrit 28, hemoglobin 9, and platelet count 159,000. Chemistries show sodium 134, this is from yesterday her electrolytes, sodium 134, potassium 4.9, chloride 80, BUN 99, and creatinine 3.8. Blood sugars 131, 134, 135, and 149. MEDICATIONS: Continue current treatment. Aspirin 81 mg a day, Colace 100 mg b.i.d., on dopamine drip. Getting Lovenox 30 mg subcutaneous daily. Ipratropium bromide 0.5 mg inhalation q.6 hours. Methylprednisone 60 mg IV q.8 hours. Normal saline at 75 mL an hour. Polyethylene glycol 17 g daily. Pravachol 20 mg every evening. Milrinone 20 mg in 100 mL running at a drip per Dr. Lima that was started yesterday. Propofol. cc: Abilio Nichols MD
[2018-11-06] MEDS: ATROVENT NEB INH SCH ×3 (09:52→22:16)
[2018-11-06] MEDS: XOPENEX NEB INH SCH ×3 (09:52→22:16)
[2018-11-06] MEDS ORDERED: NS 500 ML ONE (10:00)
[2018-11-06 10:26] LABS: ALB/GLOB RATIO 1.5; ALBUMIN 2.7 g/dL (3.5-5.0); CREATININE 4.1 mg/dL (0.5-0.9); TOTAL BILIRUBIN 1.04 mg/dL (0.20-1.00); TOTAL PROTEIN 4.5 g/dL (6.3-8.3)
[2018-11-06 10:31] LABS: INR 1.14; PROTIME 15.5 Seconds (11.0-16.0)
[2018-11-06 10:37] LABS: MAGNESIUM 2.3 mg/dL (1.5-2.7); PHOSPHORUS 9.5 mg/dL (2.7-4.5); PREALBUMIN 10.4 mg/dL (20-40)
[2018-11-06 11:07] LABS: CALCIUM 6.2 mg/dL (8.8-10.2)
[2018-11-06] MEDS ORDERED: CALCIUM GLUCONATE 1 GM in NS 50 ML IV ONE (12:36)
--- NOTE | 2018-11-06 16:29 | NEPHROLOGY PROGRESS NOTE ---
DATE: 11/06/2018 SUBJECTIVE: Patient remains unresponsive. She has been on sedation for greater than 24 hours. OBJECTIVE: Vital Signs: Temperature 98.5 degrees, pulse 90 respiratory rate 14, blood pressure 86/38 with pressor support. Intake 1.6 L. Output 1.1 L. General: This is an elderly female, acutely ill-appearing. Currently unresponsive. Mechanically ventilated. HEENT: Normocephalic, atraumatic. Pupils are pinpoint. Neck: Supple. No JVD. Cardiovascular: Regular rate. Remains on pressor support. Pulmonary: Decreased breath sounds. Remains mechanically ventilated. Abdomen: Hypoactive. : Jose catheter. Small amount of urine. Extremities: 2+ edema to the backs of the thighs. Integumentary: Skin is pale, warm, and dry. LAB DATA: Sodium 134, potassium 4.9, creatinine 3.8, WBC 17. ASSESSMENT AND PLAN: Acute kidney injury. Urine output slightly improved but no better. Again dialysis is not appropriate as this will not likely change her prognosis. However if the plan of care changes and it is determined that renal replacement therapy would assist we will be glad to provide that. Dictated by GREGORY Moser for Chandan Valdez MD Face to face encounter, data reviewed, discussed with Jairon Benitez on 11/06/18. I agree with the above assessment and plan of care. cc: Chandan Valdez MD [facility]
[2018-11-06] MEDS ORDERED: NS 250 ML IV ONE (16:51)
[2018-11-06] MEDS ORDERED: ALBUMIN 25% IV ONE (16:52)
[2018-11-06] MEDS: NEXIUM IV SCH (17:58)
--- NOTE | 2018-11-06 19:24 | PROGRESS NOTE ---
DATE: 11/06/2018 SUBJECTIVE: Patient continues to date on ventilator. She has been off propofol since before noon yesterday. She is presently on Levophed and milrinone. Urine output has been at least 30 mL/h. OBJECTIVE: Vital Signs: Blood pressure 112/61, heart rate 114, with ECG monitor showing sinus rhythm. Oxygen saturation 98% on ventilator with FiO2 of 35%. Neck: Jugular venous pressure appears to be normal based on inspection of the neck veins. Chest: Clear to auscultation anteriorly. Cardiac: Regular rate and rhythm without appreciable murmur or gallop. Extremities: Warm without edema. LABORATORY DATA: White blood cell count of 17.37, hematocrit 28.1, hemoglobin 9.9, platelet count 159,000. Sodium 133, potassium 5.0, chloride 80, carbon dioxide 18, BUN 117, creatinine 4.1, glucose 140, albumin 2.7. IMPRESSION: 1. Status post pulseless electrical activity arrest 6 days ago with subsequent cardiogenic shock. Suspect underlying myocardial ischemia and cardiogenic etiology. 2. Severe cardiomyopathy, probably ischemic in origin. 3. Chronic obstructive pulmonary disease. 4. Recent shock with resultant acute renal failure. RECOMMENDATIONS: 1. Continue milrinone and Levophed as required. 2. Gently increase IV hydration efforts. cc: Renny Lima MD
[2018-11-06] MEDS: PRAVACHOL PO SCH (21:45)
[2018-11-07] MEDS: NS 1,000 ML IV SCH ×2 (03:45→15:27)
[2018-11-07] MEDS: SOLU-MEDROL IV SCH ×3 (03:45→18:40)
[2018-11-07] MEDS: PRIMACOR 20 MG/D5W 100 ML 20 MG/100 ML IVPB IV SCH ×2 (04:12→15:27)
[2018-11-07 05:32] LABS: ALLEN TEST YES; BE -1.8 mmoll (-3.0-3.0); BLOOD TYPE ARTERIAL; HCO3-(ACT) 23.5 mmoll (20.0-26.0); METHB 0.1 % (0.0-1.5); O2(CT) 14.9 mL/dL (15.0-23.0); O2HB 97.7 % (95.0-99.0); PCO2(98.6) 27 mmHg (35-45); PO2(98.6) 111 mmHg (60-100); SAMPLE BLOOD; SAO2 98.8 % (95.0-100.0); SRATE 10 BPM; THB 10.7 g/dL (11.5-17.4); TVOL 700 mL; pH(98.6) 7.49 (7.35-7.45)
[2018-11-07 05:34] LABS: MODALITY VENTILATOR
[2018-11-07] MEDS: LOVENOX SUBQ SCH (05:42)
[2018-11-07] MEDS: HUMULIN R SUBQ SCH ×5 (05:44→20:40)
--- NOTE | 2018-11-07 07:08 | Diag Imaging Result Doc PS360 ---
EXAM: CHEST-PORTABLE HISTORY: respiratory failure TECHNIQUE: Chest single view COMPARISON: 11/06/2018 no change in the FINDINGS: Endotracheal tube or nasogastric tube. There is a right-sided PICC line with tip in the right atrium. There is vascular distention on the current study. There are infiltrates and atelectasis in the left base with small pleural effusion. IMPRESSION: Mild interval worsening. Electronically signed by Carmelo Cole 11/07/2018 7:05 AM
[2018-11-07 07:58] LABS: ALB/GLOB RATIO 2.1; ALBUMIN 3.3 g/dL (3.5-5.0); CREATININE 4.1 mg/dL (0.5-0.9); POTASSIUM 4.3 mmol/L (3.5-5.1); TOTAL BILIRUBIN 1.25 mg/dL (0.20-1.00); TOTAL PROTEIN 4.9 g/dL (6.3-8.3)
--- NOTE | 2018-11-07 08:20 | PROGRESS NOTE ---
DATE: 11/07/2018 SUBJECTIVE: Ms. Dubose is about the same. Still on the ventilator. She has remained afebrile. OBJECTIVE: Temperature 99.1 degrees this morning, pulse 110, respirations 16, blood pressure 132/67. Lungs: Clear anterolateral. Cardiovascular: Regular rhythm and rate without murmur or S3. Abdomen: Soft. Skin: Warm and dry. Genitourinary: Urine output 2100 mL. LABORATORY DATA: Reviewed lab from yesterday. Sodium 133, potassium 5.0, chloride 80, BUN 117, creatinine 4.1. White blood cell count is still elevated at 17,370, hematocrit 28, platelet count 159,000. IMAGING: Chest x-ray. Mild interval worsening. Endotracheal tube in place. There is right- sided PICC line tip in the right atrium. Vascular distention on the current study. There are infiltrates and atelectasis in the left base and small pleural effusion. ASSESSMENT AND PLAN: 1. Acute kidney injury. Urine output had slightly improved. Electrolytes are okay. Volume status, she is volume overload. 2. Cardiomyopathy, pump failure, lactic acidosis from cardiogenic shock, and acute hypoxemic respiratory failure on the ventilator, status post cardiopulmonary arrest. 3. Encephalopathy, multifactorial. Hypoxemia and acidemia. 4. Shock liver with elevated transaminases. 5. Diabetes mellitus type 2. Continue to pattern sugars. REVIEW OF HER ORDERS: I do not know that I see any change at this point. We are on Milrinone. She gets propofol. cc: Abilio Nichols MD
[2018-11-07 08:25] LABS: CALCIUM 6.9 mg/dL (8.8-10.2)
[2018-11-07] MEDS: XOPENEX NEB INH SCH ×3 (09:04→22:18)
[2018-11-07] MEDS: ATROVENT NEB INH SCH ×3 (09:04→22:17)
[2018-11-07] MEDS ORDERED: CALCIUM GLUCONATE 2 GM in NS 100 ML IV ONE (09:15)
[2018-11-07] MEDS: COLACE PO SCH ×2 (09:31→20:39)
[2018-11-07] MEDS: ASPIRIN PO SCH (09:32)
[2018-11-07] MEDS: MIRALAX PO SCH (09:32)
[2018-11-07] MEDS ORDERED: VANCOMYCIN IV PER PHARMACY MISC SCH (11:45)
[2018-11-07] MEDS: LEVOPHED 8 MG in D5 1/2 NS 250 ML IV SCH (12:19)
[2018-11-07] MEDS: LEVAQUIN 500 MG/D5W 500 MG/100 ML IVPB IV SCH (12:19)
[2018-11-07] MEDS ORDERED: VANCOMYCIN 1 GM/NS 1 GM/250 ML IVPB IV SCH (13:00)
[2018-11-07] MEDS: NEXIUM IV SCH (18:41)
[2018-11-07] MEDS: PRAVACHOL PO SCH (20:39)
--- NOTE | 2018-11-07 21:24 | NEPHROLOGY PROGRESS NOTE ---
DATE: 11/07/2018 SUBJECTIVE: Patient unresponsive, she grimaces only to tactile stimulation. She has been off sedation for greater than 48 hours. OBJECTIVE: Vital Signs: Temperature 99.1 degrees, pulse 110, respiratory rate 16, blood pressure 132/67, intake 3.2 L. Output 1.2 L,1 liter of this was urine output. General: Ill- appearing female unresponsive except to grimace with suctioning, mechanically ventilated. HEENT: Normocephalic, atraumatic. Oral mucosa dry. Neck: Supple. No JVD. Cardiovascular: Regular rate, remains on pressor support. Pulmonary: Decreased breath sounds. Remains mechanically ventilated. Abdomen: Hypoactive. Tube feedings noted. : Jose catheter modest urine. Extremities: 2+ edema that is dependent to the backs of the thighs and hips. Integumentary: Skin is pale, warm, and dry. LAB DATA: Sodium 137, potassium 4.3, chloride 86, CO2 18, creatinine 4.1, albumin 3.3, her calcium is 6.9, she has a phosphorus of 8.7 (9.5), albumin 3.3. She has a corrected calcium of 7.46. ASSESSMENT AND PLAN: 1. Cardiomyopathy, lactic acidosis secondary to cardiogenic shock. 2. Respiratory failure status post cardiopulmonary arrest. Followed by primary pulmonology, remains on the vent. 3. Acute kidney injury, output per urine again greater than a liter but creatinine still continues a slow climb. No change in renal plan. 4. Hypocalcemia, hyperphosphatemia. Her phosphorus did come down some yesterday. Her corrected calcium is 7.46. Dictated by GREGORY Moser for Chandan Valdez MD cc: Chandan Valdez MD [facility]
[2018-11-08] MEDS: SOLU-MEDROL IV SCH ×3 (02:46→18:13)
[2018-11-08] MEDS: NS 1,000 ML IV SCH ×2 (02:46→13:24)
[2018-11-08 04:33] LABS: ALLEN TEST YES; BE 0.6 mmoll (-3.0-3.0); BLOOD TYPE ARTERIAL; HCO3-(ACT) 25.4 mmoll (20.0-26.0); METHB 0.9 % (0.0-1.5); O2(CT) 12.4 mL/dL (15.0-23.0); O2HB 96.4 % (95.0-99.0); PCO2(98.6) 31 mmHg (35-45); PO2(98.6) 114 mmHg (60-100); SAMPLE BLOOD; SAO2 98.3 % (95.0-100.0); SRATE 10 BPM; TVOL 700 mL; pH(98.6) 7.49 (7.35-7.45)
[2018-11-08 04:34] LABS: MODALITY VENTILATOR
[2018-11-08] MEDS: LOVENOX SUBQ SCH (05:55)
[2018-11-08] MEDS: PRIMACOR 20 MG/D5W 100 ML 20 MG/100 ML IVPB IV SCH ×2 (05:55→20:25)
[2018-11-08] MEDS: HUMULIN R SUBQ SCH ×5 (05:57→20:27)
--- NOTE | 2018-11-08 07:28 | Diag Imaging Result Doc PS360 ---
EXAM: CHEST-PORTABLE HISTORY: respiratory failure TECHNIQUE: Portable chest single view COMPARISON: 11/07/2018 FINDINGS: No change in the endotracheal tube, nasogastric tube, or right-sided PICC line. Heart is borderline mildly prominent. There is mild pulmonary edema. Small infiltrates or atelectasis in the left lung base. There is likely tiny left pleural effusion as well. The overall appearance is similar to the prior exam. IMPRESSION: Stable chest. Electronically signed by Carmelo Cole 11/08/2018 7:26 AM
[2018-11-08 07:33] LABS: ALB/GLOB RATIO 1.8; ALBUMIN 2.9 g/dL (3.5-5.0); CALCIUM 7.4 mg/dL (8.8-10.2); CREATININE 3.5 mg/dL (0.5-0.9); MAGNESIUM 2.3 mg/dL (1.5-2.7); PHOSPHORUS 7.9 mg/dL (2.7-4.5); POTASSIUM 3.7 mmol/L (3.5-5.1); TOTAL BILIRUBIN 1.06 mg/dL (0.20-1.00); TOTAL PROTEIN 4.5 g/dL (6.3-8.3)
--- NOTE | 2018-11-08 08:15 | PROGRESS NOTE ---
DATE: 11/08/2018 SUBJECTIVE: Ms. Dubose is about the same. She is still intubated and sedated. She is really not waking up much. OBJECTIVE: Temperature 97.1 degrees, pulse 104, respirations 11, blood pressure 125/75. Pupils are equal. No distended neck veins. Lungs are clear anterolateral. Cardiovascular Examination: Regular rhythm and rate without murmur or S3. Abdomen is soft. Skin is warm and dry. Urine output was 2900 mL. Chest x-ray from this morning, stable chest. No change in endotracheal tube, nasogastric tube, right-sided PICC line. Heart is borderline mildly prominent. ASSESSMENT AND PLAN: 1. Acute kidney injury. Urine output has improved slightly. 2. Cardiomyopathy, pump failure with lactic acidosis, cardiogenic shock. Universal like she had shock liver. Still on the ventilator. Very little improvement. 3. Encephalopathy, multifactorial, hypoxemic and acidemia. REVIEW OF LABORATORY DATA: Hematocrit 28, hemoglobin 9.9 on the 24th. Chemistries today, sodium 141, potassium 3.7, chloride 94, BUN is 143, creatinine 3.5 which is down a little bit from yesterday. Blood sugars 137, 135, 149, 140. REVIEW OF ORDERS: I do not see any change. On Colace 100 mg twice a day, aspirin 81 mg a day, dopamine drip, levofloxacin 500 mg IV q.24 hours, Solu-Medrol 60 mg IV q.8, MiraLAX 17 g daily, Pravachol 20 mg daily, milrinone drip going, vancomycin 1 g IV q.120 hours. cc: Abilio Nichols MD
[2018-11-08] MEDS: COLACE PO SCH ×2 (08:28→20:26)
[2018-11-08] MEDS: MIRALAX PO SCH (08:28)
[2018-11-08] MEDS: ASPIRIN PO SCH (08:28)
[2018-11-08] MEDS: ATROVENT NEB INH SCH ×3 (09:10→21:09)
[2018-11-08] MEDS: XOPENEX NEB INH SCH ×3 (09:10→21:09)
[2018-11-08] MEDS: LEVAQUIN 500 MG/D5W 500 MG/100 ML IVPB IV SCH (11:00)
--- NOTE | 2018-11-08 15:19 | NEPHROLOGY PROGRESS NOTE ---
DATE: 11/08/2018 SUBJECTIVE: Patient remains significantly obtunded. Nurse notes that she will open her eyes to loud noises or if someone says her name, but there is no purposeful movement and does not follow commands. OBJECTIVE: Vital Signs: Temperature 97.1 degrees, pulse 94, respiratory rate 18, blood pressure 125/75. Intake 3.8 L. Output 1.7 L. Of this, urine output was 1.4 L. General: This is an acutely ill-appearing female resting in bed. She remains mechanically ventilated. HEENT: Normocephalic, atraumatic. Orally intubated. Neck: Supple without JVD. Cardiovascular: Regular rate and rhythm. Remains on pressor support with norepinephrine and milrinone. Pulmonary: Continues with decreased breath sounds. Remains mechanically ventilated. Abdomen: Hypoactive bowel sounds. Continues with tube feeding. : Modest urine output. Yellow. Extremities: With 1 to 2+ edema again dependent. Integumentary: Skin is pale, warm, and dry. LAB DATA: Sodium 141, potassium 3.7, CO2 of 22, BUN 143 (140) creatinine 3.5 (4.1). Her corrected calcium is 8.2. ASSESSMENT AND PLAN: 1. Cardiomyopathy and lactic acidosis secondary to cardiogenic shock with respiratory failure status post cardiopulmonary arrest. Followed by primary and Pulmonology. Remains on the ventilator 2. Acute kidney injury. Her creatinine appears to have plateaued. Her BUN still is elevated. It is noted she is on tube feeds. No change in plan. 3. Electrolytes, acid-base balance. Potassium with corrected calcium of 8.2 today. No change. Check labs in the morning. Dictated by GREGORY Moser for Chandan Valdez MD cc: Chandan Valdez MD
[2018-11-08] MEDS: NEXIUM IV SCH (18:13)
[2018-11-08] MEDS: PRAVACHOL PO SCH (20:25)
[2018-11-09] MEDS: SOLU-MEDROL IV SCH ×3 (02:30→17:59)
[2018-11-09] MEDS: NS 1,000 ML IV SCH ×3 (02:30→23:28)
[2018-11-09 04:44] LABS: ALLEN TEST YES; BE -0.6 mmoll (-3.0-3.0); BLOOD TYPE ARTERIAL; HCO3-(ACT) 24.4 mmoll (20.0-26.0); METHB 0.9 % (0.0-1.5); O2(CT) 15.5 mL/dL (15.0-23.0); O2HB 95.8 % (95.0-99.0); PCO2(98.6) 27 mmHg (35-45); PO2(98.6) 92 mmHg (60-100); SAMPLE BLOOD; SAO2 98.3 % (95.0-100.0); SRATE 10 BPM; THB 11.4 g/dL (11.5-17.4); TVOL 700 mL; pH(98.6) 7.51 (7.35-7.45)
[2018-11-09 04:45] LABS: MODALITY VENTILATOR
[2018-11-09] MEDS: LOVENOX SUBQ SCH (05:17)
[2018-11-09] MEDS: HUMULIN R SUBQ SCH ×5 (05:17→20:04)
[2018-11-09 06:29] LABS: ALB/GLOB RATIO 1.3; ALBUMIN 2.8 g/dL (3.5-5.0); CALCIUM 7.3 mg/dL (8.8-10.2); CREATININE 3.2 mg/dL (0.5-0.9); MAGNESIUM 2.4 mg/dL (1.5-2.7); PHOSPHORUS 6.4 mg/dL (2.7-4.5); POTASSIUM 3.4 mmol/L (3.5-5.1); TOTAL BILIRUBIN 1.41 mg/dL (0.20-1.00); TOTAL PROTEIN 4.9 g/dL (6.3-8.3)
--- NOTE | 2018-11-09 07:06 | Diag Imaging Result Doc PS360 ---
EXAM: CHEST-PORTABLE HISTORY: respiratory failure TECHNIQUE: Portable chest single view COMPARISON: 11/08/2018 FINDINGS: No change in the right-sided PICC line, endotracheal tube, or the nasogastric tube. Heart is borderline mildly prominent. Pulmonary edema has decreased. Questionable tiny right pleural effusion. Partial clearing in the left lung base. There is atelectasis or small infiltrate in the right base. IMPRESSION: Mild interval improvement. Electronically signed by Carmelo Cole 11/09/2018 7:03 AM
[2018-11-09] MEDS: ATROVENT NEB INH SCH ×3 (08:11→22:24)
[2018-11-09] MEDS: XOPENEX NEB INH SCH ×3 (08:11→22:24)
[2018-11-09] MEDS: MIRALAX PO SCH (08:47)
[2018-11-09] MEDS: COLACE PO SCH ×2 (08:47→20:05)
[2018-11-09] MEDS: ASPIRIN PO SCH (08:47)
[2018-11-09] MEDS ORDERED: LOPRESSOR IV PRN (09:04)
[2018-11-09] MEDS ORDERED: LOPRESSOR 5 MG in NS 50 ML IV SCH (09:15)
--- NOTE | 2018-11-09 09:19 | PROGRESS NOTE ---
DATE: 11/09/2018 SUBJECTIVE: Ms. Dubose is still sedated. She was extubated yesterday and had to be restarted on the ventilator. Trying to extubate again today. OBJECTIVE: Vitals: Remains afebrile, temperature 99.5 degrees, pulse 125, respirations 15, blood pressure 158/86. Eyes: Pupils are equal, round. Lungs: Clear in all lung flores. Cardiovascular: Regular rhythm and rate without murmur or S3. Abdomen: Soft. Skin: Warm and dry. OUTPUT: Urine output is 3800 mL. IMAGING: Chest x-ray from this morning: Mild interval improvement. No change in right-sided PICC line, endotracheal tube, or nasogastric tube. Heart is borderline mildly prominent. Pulmonary edema is decreased. Questionable tiny right pleural effusion. Partial clearing of left lung base. There is atelectasis or small infiltrate in the right base. ASSESSMENT AND PLAN: 1. Cardiomyopathy. Congestive heart failure. Lactic acidosis secondary to cardiogenic shock. Respiratory failure, status post cardiopulmonary arrest. Trying to wean her from the ventilator. 2. Acute kidney injury. Appears the creatinine may have plateaued. Increase in her urine output is encouraging. 3. Nutrition. She is on tube feeding. 4. Electrolytes, acid-base status, little change. Hematocrit 28. Hemoglobin 9.9. Electrolytes unremarkable. Creatinine has come down to 3.2. 5. Review of orders. I do not see any change. She is on a Milrinone drip. cc: Abilio Nichols MD
[2018-11-09] MEDS: PRIMACOR 20 MG/D5W 100 ML 20 MG/100 ML IVPB IV SCH ×2 (10:48→20:50)
[2018-11-09] MEDS: LEVAQUIN 500 MG/D5W 500 MG/100 ML IVPB IV SCH (10:48)
[2018-11-09] MEDS: TYLENOL LIQUID PO PRN ×2 (11:27→15:32)
--- NOTE | 2018-11-09 15:13 | NEPHROLOGY PROGRESS NOTE ---
DATE: 11/09/2018 SUBJECTIVE: The patient has been made a DO NOT RESUSCITATE. She is to have an EEG today. She still has no purposeful response. OBJECTIVE: Vital Signs: Temperature 99.5 degrees, pulse 133, respiratory rate 17, blood pressure 158/86. Intake 3 L, output 2.3 L, and 1.8 liters of this is urine output. General: Critically ill-appearing, elderly female, resting in bed. Again, unresponsive. HEENT: Normocephalic, atraumatic. PERRL. Oral mucosa is dry. Neck: Supple. Positive JVD. Cardiovascular: Regular rate and rhythm. Pulmonary: Decreased breath sounds. Remains ventilated. Abdomen: Hypoactive bowel sound. Genitourinary: Jose catheter. Extremities: Trace edema. Integumentary: Skin is pale. LABORATORY DATA: Sodium 146, potassium 3.4, CO2 of 21, creatinine 3.2, BUN 142. ASSESSMENT AND PLAN: 1. Acute kidney injury. Her creatinine is 3.2 today. She has had increase in urine output. Her BUN still remains quite elevated. 2. Cardiomyopathy, lactic acidosis, cardiogenic shock, respiratory failure, status post cardiopulmonary arrest. They tried to wean her off the ventilator yesterday. She had to be placed back on mechanical ventilation. They will try to extubate again today. 3. Patient has been made DO NOT RESUSCITATE. Again, if her plan of care changes and aggressive intervention such as dialysis is requested by the family, we will be glad to assist. It is noted that she is to have an electroencephalogram to determine anoxic brain injury today. I spoke with the daughter. She does not think the patient would accept tracheostomy. She is not inclined to increase the level of care. Will wait for neurology assessment. rg Dictated by GREGORY Moser for Chandan Valdez MD Face to face encounter, data reviewed, discussed with Jairon Benitez on 11/09/18. I agree with the above assessment and plan of care. rg cc: Chandan Valdez MD [facility]
[2018-11-09 17:04] LABS: BASO# 0.01 X1000 (0.0-0.2); BASO% 0.1 % (0.0-0.8); HEMATOCRIT 23.9 % (37.0-47.0); IMM GRAN# 0.12 X1000 (0.0-0.04); IMM GRAN% 1.2 % (0.0-0.5); LYMPH# 0.43 X1000 (1.2-3.4); LYMPH% 4.3 % (20.5-51.1); MCH 30.9 PG (27-31); MCHC 33.5 g/dL (33-37); MCV 92.3 FL (81-99); MONO# 0.92 X1000 (0.11-0.59); MONO% 9.2 % (1.7-9.3); MPV 12.6 FL (7.4-10.4); NEUT# 8.51 X1000 (1.4-6.5); NEUT% 85.2 % (42.2-75.2); PLT 83 X1000 (130-400); RBC 2.59 XMIL (4.2-5.4); RDW 14.8 % (11.5-14.5); WBC 9.99 X1000 (4.8-10.8)
[2018-11-09 17:30] LABS: LYMPHS 2 % (21-51); MONO 2 % (1-9); SEGS 96 % (42-75)
[2018-11-09 17:31] LABS: LARGE PLATELETS OCCASIONAL; TARGET CELLS OCCASIONAL
[2018-11-09] MEDS: NEXIUM IV SCH (17:59)
[2018-11-09] MEDS: PRAVACHOL PO SCH (20:02)
[2018-11-10] MEDS: PRIMACOR 20 MG/D5W 100 ML 20 MG/100 ML IVPB IV SCH (02:49)
[2018-11-10] MEDS: SOLU-MEDROL IV SCH ×4 (03:39→23:26)
[2018-11-10] MEDS: LOPRESSOR IV PRN ×2 (03:55→15:23)
[2018-11-10 04:49] LABS: ALLEN TEST YES; BE -1.4 mmoll (-3.0-3.0); BLOOD TYPE ARTERIAL; HCO3-(ACT) 23.8 mmoll (20.0-26.0); METHB 0.9 % (0.0-1.5); O2(CT) 11.7 mL/dL (15.0-23.0); O2HB 96.3 % (95.0-99.0); PCO2(98.6) 30 mmHg (35-45); PO2(98.6) 107 mmHg (60-100); SAMPLE BLOOD; SAO2 98.2 % (95.0-100.0); SRATE 10 BPM; THB 8.5 g/dL (11.5-17.4); TVOL 700 mL; pH(98.6) 7.47 (7.35-7.45)
[2018-11-10 04:52] LABS: MODALITY VENTILATOR
[2018-11-10 05:16] LABS: HEMATOCRIT 23.7 % (37.0-47.0); HEMOGLOBIN 7.9 g/dL (12.0-16.0); MCH 31.1 PG (27-31); MCHC 33.3 g/dL (33-37); MCV 93.3 FL (81-99); MPV 12.5 FL (7.4-10.4); RBC 2.54 XMIL (4.2-5.4); RDW 14.8 % (11.5-14.5); WBC 12.05 X1000 (4.8-10.8)
[2018-11-10] MEDS: LOVENOX SUBQ SCH (05:34)
[2018-11-10 05:59] LABS: ALB/GLOB RATIO 1.3; ALBUMIN 2.8 g/dL (3.5-5.0); CREATININE 2.6 mg/dL (0.5-0.9); POTASSIUM 3.3 mmol/L (3.5-5.1); TOTAL BILIRUBIN 1.3 mg/dL (0.20-1.00); TOTAL PROTEIN 4.9 g/dL (6.3-8.3)
[2018-11-10] MEDS ORDERED: CALCIUM GLUCONATE 2 GM in NS 100 ML IV ONE (06:05)
[2018-11-10] MEDS: HUMULIN R SUBQ SCH ×5 (06:13→23:27)
[2018-11-10] MEDS: POTASSIUM CHLORIDE 20 MEQ/SWI 20 MEQ/100 ML IVPB IV SCH ×2 (06:34→08:45)
[2018-11-10] MEDS: D5W 1,000 ML IV SCH ×2 (06:34→15:23)
--- NOTE | 2018-11-10 07:24 | Diag Imaging Result Doc PS360 ---
EXAM: CHEST-PORTABLE 11/10/2018 HISTORY: respiratory failure TECHNIQUE: AP portable at 0528 COMMENT: There is an endotracheal tube with its tip slightly below the thoracic inlet but well above the mei and an NG tube with its tip in the distal stomach. There is a PICC line on the right with its tip just above the right atrium. There is ill-defined opacity partially obscuring the right hemidiaphragm and a similar opacity in the medial portion of the left base. This has worsened slightly on the left since 11/09/2018. IMPRESSION: Bibasilar atelectasis versus pneumonia. Electronically signed by Roshan Graves 11/10/2018 7:22 AM
[2018-11-10] MEDS: MIRALAX PO SCH (08:20)
[2018-11-10] MEDS: COLACE PO SCH ×2 (08:20→20:03)
[2018-11-10] MEDS: ASPIRIN PO SCH (08:20)
[2018-11-10] MEDS ORDERED: HUMULIN R SUBQ ONE (08:39)
[2018-11-10] MEDS: ATROVENT NEB INH SCH ×3 (09:28→22:33)
[2018-11-10] MEDS: XOPENEX NEB INH SCH ×3 (09:28→22:35)
--- NOTE | 2018-11-10 09:34 | NEPHROLOGY PROGRESS NOTE ---
Face to face encounter, data reviewed, discussed with Eriberto Terrazas on 11/10/18. I agree with the above assessment and plan of care. DATE: 11/10/2018 TIME SEEN: 0620. SUBJECTIVE: Ms. Dubose is currently residing on the ventilator. She is a Do Not Resuscitate. No purposeful response. OBJECTIVE: Vitals: Her most recent vital signs, temperature 99.7 degrees, blood pressure 146/82, heart rate is 115, respirations are 15. She is on mechanical ventilation of 35% FiO2, saturating at 96.4%. She has had 3787 in, 4380 out. General: This is a 73-year-old white female resting quietly in bed. She is unresponsive. HEENT: Normocephalic, atraumatic. Conjunctiva pale. She has KASH. Mucous membranes are dry. Oral ET tube is in place. Neck: Supple. Positive JVD. Cardiovascular: She is regular rate and rhythm. She is tachycardic. No appreciable murmur or gallop. Lungs: Have diminished breath sounds bilateral. Coarse anterior. Ventilator dependent. Abdomen: Soft, nontender, positive bowel sounds, hypoactive noted. Genitourinary: Jose catheter is in place. Minimal urine out. Extremities: 2+ edema. No clubbing or cyanosis. Integumentary: Skin warm and dry, pale. LABORATORY DATA: Sodium 150, potassium 3.3, chloride 109, CO2 19, BUN 121, creatinine 2.6, glucose is 399. Her anion gap is 22. Her calcium is 7, albumin 2.8. White count 12, hemoglobin 7.9, hematocrit 23.7 with a platelet count of 75,000. Arterial blood gases: PH 7.47, CO2 of 30, PO2 107, bicarb 23.8 on 35% with a lactate of 2.7. ASSESSMENT AND PLAN: 1. Acute kidney injury. Creatinine is slightly improved associated with increased urinary output. No indications for intervention. 2. Cardiomyopathy with lactic acidosis and cardiogenic shock, continue to monitor. 3. Respiratory failure. The patient has failed to wean off the ventilator yesterday, with attempt of wean today. 4. Electrolytes and acid-base balance. Patient has hypokalemia. We will replace that. Sodium is elevated at 150. We will change her IV fluids to D5 W. 5. Acid-base balance. Patient remains in lactic acidosis. Lactate remains at 2.7. She also continues with metabolic acidosis. We will continue to monitor. 6. Anemia. This remains low, but stable. 7. Patient is a Do Not Resuscitate. At this time, we will await Neurology's assessment. I would to thank you for allowing us to follow with this patient. Dictated by GREGORY Valdez for Chandan Valdez MD Face to face encounter, data reviewed, discussed with Eriberto Terrazas on 11/10/18. I agree with the above assessment and plan of care. cc: GREGORY Valdez MD [facility]
--- NOTE | 2018-11-10 09:50 | PROGRESS NOTE ---
DATE: 11/10/2018 SUBJECTIVE: Ms. Dubose is about the same. She is intubated, sedated, unresponsive. She has remained afebrile. OBJECTIVE: Vital Signs: Temperature 99.7 degrees, pulse 120, respirations 18, blood pressure 126/100. She actually has had some temperature above 100, and I think we have to obtain blood cultures again. Lungs: Clear anterolateral, intubated. Cardiovascular exam: Regular rhythm and rate without murmur or S3. Abdomen: Soft. Skin: Warm and dry. X-RAYS: Chest x-ray from this morning: Bibasilar atelectasis versus pneumonia. ASSESSMENT AND PLAN: 1. Acute kidney injury. Renal function about the same. Her BUN and creatinine: BUN is 121, creatinine 2.6, although creatinine has come down a little bit. 2. Respiratory failure. She has congestive heart failure, cardiomyopathy, lactic acidosis secondary to cardiogenic shock. Continue to try and make attempts at weaning. 3. Neurologic function really has not woken up or had much response. I think the plan is to try and get an electroencephalogram at some time. 4. We are treating her for underlying infection, pneumonia. She is on Levaquin 500 mg intravenous every 12 hours, still getting the Milrinone drip. She is on vancomycin 1 gram every 72 hours. cc: Abilio Nichols MD
[2018-11-10] MEDS: LEVAQUIN 500 MG/D5W 500 MG/100 ML IVPB IV SCH (10:56)
[2018-11-10] MEDS ORDERED: HUMULIN R SUBQ SCH (11:00)
[2018-11-10] MEDS ORDERED: VANCOMYCIN 1 GM/NS 1 GM/250 ML IVPB IV SCH (14:00)
--- NOTE | 2018-11-10 14:05 | PROGRESS NOTE ---
DATE: 11/10/2018 SUBJECTIVE: Patient continues on ventilator and sedate. She does move around spontaneously to a limited degree but does not respond in any meaningful way to stimulus. OBJECTIVE: Blood pressure 133/75, heart rate 120 with ECG monitor showing sinus tachycardia. Oxygen saturation 98% on ventilator with FiO2 of 35%. There is no significant jugular distention.Chest: Clear to auscultation bilaterally. Cardiac Exam: Reveals a regular rate and rhythm without appreciable murmur or gallop. Abdomen: Soft. Bowel sounds audible. Extremities: Demonstrate moderate pretibial edema. LABORATORY DATA: Includes a white blood cell count of 12.05, hematocrit 23.7, hemoglobin 7.9, platelet count 75,000. Sodium 150, potassium 3.3, chloride 109, carbon dioxide 19, BUN 121, creatinine 2.3. Albumin 2.8. IMPRESSION: 1. Status post pulseless electrical activity arrest 9 days ago with subsequent cardiogenic shock. Suspect underlying myocardial ischemia and cardiogenic etiology. 2. Severe cardiomyopathy probably ischemic in origin. 3. Acute renal failure secondary to shock. Renal function gradually improving. 4. Chronic obstructive pulmonary disease. RECOMMENDATIONS: 1. Discontinue milrinone and continue pressors as required. 2. Continue intravenous hydration efforts with hypotonic IV fluids in light of hypernatremia. cc: Renny Lima MD
--- NOTE | 2018-11-10 14:31 | CONSULTATION ---
DATE OF CONSULTATION: 11/10/2018 Ms. Dubose is 73 years old and she had progressive shortness of breath requiring admission. She had documented recent onset heart failure. She had apparent primary respiratory event 9 days ago and has not regained consciousness. She no longer has sedatives on board. Temperature 101 degrees last p.m., otherwise afebrile. She has not had brain imaging this admission. EEG shows generalized slowing with some burst suppression features. Lengthy telephone discussion with daughter is that the patient has had some forgetfulness in recent months. This has concerned daughter because patient's mother had dementia and likely Alzheimer's disease. There is history of significant physical limitations presumably due to her heart failure and loss of stamina. She was also limited by poor vision and had stopped driving chiefly because of that, according to daughter. On exam now, Ms. Dubose is supine, spontaneously turning head left and right slightly. There is prominent lateral eye movements spontaneously and with passive head turning. Pupils are midposition and both react to bright light. Corneal reflex is brisk bilaterally. Facial motility is symmetric. Head and neck are unremarkable. No meningismus. Limb tone is flaccid. Plantar response is silent bilaterally. There was no response to fairly modest noxious stimulation over the limbs. IMPRESSION: Likely anoxic encephalopathy. Failure to regain consciousness over a period of 9 days following arrest is a very poor prognostic factor. Burst suppression pattern on electroencephalogram is another poor prognostic factor. Perhaps the biggest factor, from my standpoint, is the baseline cognitive impairment. I discussed at length the possible outcomes with daughter including persistent vegetative state. I think the odds are overwhelming that Ms. Dubose will not recover cortical function to the point that anyone would consider her to have a good quality of life. I do not have any urgent suggestion for workup from a neurologic standpoint. Daughter and I discussed potential findings on brain imaging and brain scan can be considered if needed to help her make decisions. Thanks for asking neurology to see Ms. Dubose. cc: MD JAIME Gonzales III
[2018-11-10] MEDS ORDERED: LASIX IV ONE (15:05)
--- NOTE | 2018-11-10 15:19 | EEG REPORT ---
DATE: 11/09/2018 This is EEG #[id number] done on 11/10/2018. COMMENT: This is a digitally recorded EEG done portably in the ICU on a 73-year-old patient with persistent unresponsiveness following primary respiratory arrest 9 days prior to EEG. FINDINGS: The dominant feature is burst suppression. There are 0.5- to 2.5-second bursts of higher amplitude slowing, mostly delta at 3-4 Hz. Highest amplitude is 30 microvolts frontally and centrally. The bursts are by periods of low amplitude, lasting 1 to several seconds, There is no sustained posterior rhythm. There is occasional faster activity at 6-8 Hz over the frontal and central regions bilaterally. Photic stimulation did not significantly alter the record. There was no variation to correlate with spontaneous drowsing or sleep. No epileptiform discharge was identified. INTERPRETATION: Abnormal electroencephalogram because of low-amplitude slowing and burst suppression. CORRELATION: This is indicative of a diffuse encephalopathy and is typical of post anoxic brain injury. This carries a poor prognosis. cc: MD Gurjit Gonzales III, MD
[2018-11-10] MEDS: NEXIUM IV SCH (17:33)
[2018-11-10] MEDS: PRAVACHOL PO SCH (20:03)
--- NOTE | 2018-11-10 22:00 | PULMONOLOGY PROGRESS NOTE ---
DATE: 11/10/2018 SUBJECTIVE: The patient is arousable and does respond to painful stimuli. She does not appear to be awake or alert. She does not respond to this practitioner in a meaningful way. OBJECTIVE: Intake 3787, output 4380. Maximum temperature in the last 24 hours 101 degrees.HEENT: Pupils are equal, oropharynx appears dry. Neck: Supple. Chest: Reveals coarse rhonchi bilaterally. Cardiac: S1, S2. Abdomen: Soft. Diminished bowel sounds. Extremities: Reveal + 1 peripheral edema. LABORATORIES: Chest x-ray reveals cardiomegaly with bibasilar infiltrates which are slightly more severe. Sodium 150, potassium 3.3, chloride 109, bicarbonate 19, BUN 121, creatinine 2.6, glucose 399. White blood count 12.0, hemoglobin 7.9, platelet 75,000. Electroencephalogram reveals low amplitude with slowing and burst suppression consistent with diffuse encephalopathy and carries a poor prognosis. Arterial blood gas pH 7.47, pCO2 of 30, PO2 of 107, lactate 2.7. IMPRESSION: A 73-year-old with 1. Cardiomyopathy. 2. Lactic acidosis which has improved over time. 3. Acute hypoxemic respiratory failure. 4. Acute renal failure with significant uremia. 5. Hypernatremia. 6. Encephalopathy. 7. Status post cardiopulmonary arrest. 8. Possible component of dementia prior to admission (see Neurology note). DISCUSSION: 73-year-old with problems outlined above. She has had marginal improvement over the last 4 days. Her significant lactic acidosis has resolved. Her mental status is marginally improved but she is at significant risk for a persistent vegetative state. She does have hypernatremia along with significant uremia, which may be further affecting her mental status. RECOMMENDATION: 1. Weaning as tolerated. 2. Agree with D5W for hypernatremia. 3. Continue current code status, overall prognosis is poor. Time spent: Critical care 30+ minutes. cc: Freedom Penny MD [facility]
[2018-11-11] MEDS: TYLENOL LIQUID PO PRN (01:12)
[2018-11-11] MEDS: D5W 1,000 ML IV SCH ×2 (01:26→11:40)
[2018-11-11] MEDS: HUMULIN R SUBQ SCH ×3 (03:26→11:40)
[2018-11-11 04:26] LABS: ALLEN TEST YES; BE 1.5 mmoll (-3.0-3.0); BLOOD TYPE ARTERIAL; HCO3-(ACT) 26.1 mmoll (20.0-26.0); METHB 0.8 % (0.0-1.5); O2(CT) 10.8 mL/dL (15.0-23.0); PCO2(98.6) 28 mmHg (35-45); PO2(98.6) 149 mmHg (60-100); SAMPLE BLOOD; SAO2 98.8 % (95.0-100.0); SRATE 10 BPM; THB 7.7 g/dL (11.5-17.4); TVOL 700 mL; pH(98.6) 7.54 (7.35-7.45)
[2018-11-11 04:28] LABS: MODALITY VENTILATOR
[2018-11-11] MEDS: LOVENOX SUBQ SCH (05:01)
[2018-11-11 05:52] LABS: MAGNESIUM 1.7 mg/dL (1.5-2.7)
[2018-11-11 06:01] LABS: ALB/GLOB RATIO 1.6; ALBUMIN 2.8 g/dL (3.5-5.0); CALCIUM 7.3 mg/dL (8.8-10.2); CREATININE 2.1 mg/dL (0.5-0.9); POTASSIUM 3.6 mmol/L (3.5-5.1); TOTAL BILIRUBIN 0.82 mg/dL (0.20-1.00); TOTAL PROTEIN 4.6 g/dL (6.3-8.3)
--- NOTE | 2018-11-11 06:41 | Diag Imaging Result Doc PS360 ---
EXAM: CHEST-PORTABLE HISTORY: respiratory failure TECHNIQUE: Portable chest single view COMPARISON: 11/10/2018 FINDINGS: No change in the endotracheal tube, nasogastric tube, and right-sided PICC line. Pulmonary edema is more pronounced on the current study. Heart is enlarged. There are small pleural effusions. There is atelectasis in the lower lungs and may be underlying infiltrates. IMPRESSION: Mild interval worsening. Electronically signed by Carmelo Cole 11/11/2018 6:39 AM
[2018-11-11] MEDS: SOLU-MEDROL IV SCH (07:21)
[2018-11-11] MEDS: ASPIRIN PO SCH (08:42)
[2018-11-11] MEDS: COLACE PO SCH (08:43)
[2018-11-11] MEDS: MIRALAX PO SCH (08:43)
--- NOTE | 2018-11-11 09:15 | PROGRESS NOTE ---
DATE: 11/11/2018 Ms. Dubose is not moving quite as much spontaneously on my rounds today as when I saw her yesterday. There is nothing remarkably different. There is full lateral eye movement with passive head turning. There was a little bit of grimace and slight head movement spontaneously. Limb tone remains symmetric. Neck is supple. I do not have any new thoughts or anything to add to impression in initial consult note yesterday. Thanks for asking Neurology to see Ms. Dubose. cc: Umair Gomez III, MD
--- NOTE | 2018-11-11 09:24 | PROGRESS NOTE ---
DATE: 11/11/2018 SUBJECTIVE: Ms. Dubose is unresponsive. Still on the ventilator. OBJECTIVE: Remains afebrile. Temperature 98.6 degrees, pulse 103, respirations 10, and blood pressure 127/80. Pupils are equal. Lungs anterolateral and clear. Cardiovascular exam regular rhythm and rate without murmur or S3. She appears to be in sinus rhythm. Abdomen is soft. 1+ edema in her feet and symmetrical. Urine output 5200 mL. Chest x-ray from this morning mild interval worsening. No change in the endotracheal tube, nasogastric tube, or right-sided PICC line. Pulmonary edema is more pronounced. Small pleural effusions. There is atelectasis in the lower lungs and possibly underlying infiltrates. ASSESSMENT AND PLAN: Cardiomyopathy. Lactic acidosis has improved a little bit. Acute hypoxemic respiratory failure, acute renal failure with significant uremia, hypernatremia, encephalopathy, status post cardiopulmonary arrest, and possible component of dementia underlying. Dr. Gomez has seen her likely anoxic encephalopathy, failure to regain consciousness over a period of 9 days following arrest, very poor prognostic factor. On the EEG, there was a burst suppression pattern on the EEG which is another poor prognostic factor. The biggest factor was the baseline cognitive impairment. Discussed with family the possibilities including persistent vegetative state. Family is deciding whether to go to comfort measures and possibly hospice care. Review of orders. I do not see anything to change at this point. cc: Abilio Nichols MD
--- NOTE | 2018-11-11 10:06 | NEPHROLOGY PROGRESS NOTE ---
DATE: 11/11/2018 TIME SEEN: 0635. SUBJECTIVE: Ms. Dubose is resting quietly in bed. She remains intubated. No response. OBJECTIVE: Vitals: Her most recent vital signs, temperature 97.3 degrees, blood pressure 116/68, heart rate is 108, respirations 17, she is on 35% FiO2. Her last recorded saturation 99%. General: This is a 73-year-old white female she remains nonresponsive, ventilator dependent, no acute distress. HEENT: Conjunctivae pale. She has KASH, mostly constricted. Mucous membranes are dry. Neck: Supple, trachea midline. She has positive JVD. Cardiovascular: She is regular rate and rhythm. She remains tachycardic. No appreciable murmur or gallop. Lungs: Diminished breath sounds bilateral, coarse anterior, ventilator support. Abdomen: Soft, nontender, hypoactive bowel sounds. Genitourinary: Jose catheter is in place. Minimal urine out. Extremities: Continues with 2 to 3+ lower extremity edema. No clubbing or cyanosis. Integumentary: Skin is warm and dry. Atraumatic. INPUT AND OUTPUT: She has had 3764 in, 2950 out to Jose catheter. LABORATORIES: Sodium 147, potassium 3.6, chloride 109, CO2 22 BUN 110, creatinine 2.1, glucose 218, anion gap is 16, calcium 7.3, phosphorus 3, albumin 2.8. Previous hemoglobin 7.9. IMAGING: Patient had a chest x-ray read this a.m. indicating mild interval worsening of small pleural effusions with underlying infiltrates bilateral. ASSESSMENT AND PLAN: 1. Acute kidney injury. Creatinine slightly improved from yesterday. BUN remains elevated. She does continue with an increased urinary output. No indications for intervention. 2. Cardiomyopathy with lactic acidosis, cardiogenic shock. This is monitored by the Primary Care. 3. Respiratory failure. Patient failed wean attempt yesterday per ventilator by Pulmonology. 4. Electrolytes and acid-base balance. These are acceptable. 5. Anemia. This is low, but stable. 6. Do Not Resuscitate. Patient remains as a Do Not Resuscitate awaiting Neurology assessment. I would like to thank you for allowing us to follow with this patient. Dictated by GREGORY Valdez for Chandan Valdez MD Face to face encounter, data reviewed, discussed with Eriberto Terrazas on 11/11/18. I agree with the above assessment and plan of care. cc: GREGORY Valdez MD [facility]
[2018-11-11] MEDS: LEVAQUIN 500 MG/D5W 500 MG/100 ML IVPB IV SCH (11:00)
[2018-11-11] MEDS: XOPENEX NEB INH SCH (11:24)
[2018-11-11] MEDS: ATROVENT NEB INH SCH (11:24)
--- NOTE | 2018-11-11 11:32 | PROGRESS NOTE ---
DATE: 11/11/2018 SUBJECTIVE: Patient continues on ventilator support. She is sedate, but turns toward examiner in response to calling her name. She does not interact any further. OBJECTIVE: Vital Signs: Blood pressure 114/65, heart rate 107, oxygen saturation 97% on ventilator with FiO2 of 30%. Neck: There is no significant jugular venous distention. Chest: Clear to auscultation. Cardiac: Exam reveals a regular rate and rhythm without appreciable murmur or gallop. Extremities: Demonstrate mild to moderate edema. LABORATORY DATA: Includes a sodium 147, potassium 3.6, chloride 109, carbon dioxide 22. BUN 110, creatinine 2.1, glucose 218, albumin 2.8. IMPRESSION: 1. Status post pulseless electrical activity arrest 10 days ago with subsequent cardiogenic shock. Suspect underlying myocardial ischemia and cardiogenic etiology. 2. Severe cardiomyopathy, probably ischemic in origin. 3. Acute renal failure secondary to shock. Renal function gradually improving. 4. Chronic obstructive pulmonary disease. RECOMMENDATIONS: 1. Continue supportive care. 2. Continue IV hydration efforts with hypotonic IV fluids in light of hypernatremia. cc: Renny Lima MD
[2018-11-11] MEDS ORDERED: MORPHINE IV PRN (13:30)
[2018-11-11] MEDS ORDERED: TYLENOL PR PRN (14:23)
[2018-11-11] MEDS: ATIVAN IV PRN ×2 (15:11→19:38)
[2018-11-11] MEDS ORDERED: BLISTEX MEDICATED BERRY LIP BALM TOP PRN (15:11)
[2018-11-11] MEDS ORDERED: SOLU-MEDROL IV SCH (16:00)
[2018-11-11] MEDS: ATROPINE 1 % OPHTH SOLN SL PRN (19:46)
[2018-11-11] MEDS: MORPHINE IV PRN (19:49)
--- NOTE | 2018-11-11 22:44 | PULMONOLOGY PROGRESS NOTE ---
DATE: 11/11/2018 SUBJECTIVE: The patient slightly moves when voice is called. She does not open her eyes. She does not follow commands. She does respond to pain with grimacing. OBJECTIVE: Vital Signs: Maximum temperature in the last 24 hours 100.7 degrees. Current temperature 98.6 degrees. HEENT: Pupils are equal. Oropharynx appears dry. Neck: Supple. Chest: Reveals occasional crackles bilaterally. Cardiac: Increased rate, irregular rhythm. Abdomen: Soft. Extremities: Reveal 1+ peripheral edema. LABORATORIES: Sodium 147, potassium 3.6, chloride 109, bicarbonate 22, BUN 110, creatinine 2.1. Arterial blood gas reveals a pH of 7.54, pCO2 of 28, PO2 of 149 with a lactate of 3. Chest x-ray reveals cardiomegaly with slightly more pulmonary edema. IMPRESSION: Unfortunate 73-year-old with 1. Cardiomyopathy. 2. Status post cardiopulmonary arrest secondary to #1. 3. Lactic acidosis. 4. Encephalopathy with probable anoxic brain injury. 5. Acute hypoxemic respiratory failure. 6. Acute renal failure. 7. Hypernatremia. 8. Possible component of dementia. DISCUSSION: A 73-year-old with problems outlined above. It has been several days since her cardiac arrest and she remains encephalopathic. The patient's prognosis is poor and family discussions are being held. It is anticipated she may be compassionately extubated later today. RECOMMENDATIONS: 1. Continue hypotonic fluids for hypernatremia. 2. Daily weaning trials unless family would like to pursue comfort measures. 3. Continue current resuscitation status. TIME SPENT: Critical care management 30+ minutes. cc: Freedom Penny MD
[2018-11-12] MEDS: ATIVAN IV PRN ×5 (00:15→20:33)
[2018-11-12] MEDS: ATROPINE 1 % OPHTH SOLN SL PRN ×4 (00:15→20:33)
[2018-11-12] MEDS: MORPHINE IV PRN ×6 (00:15→20:33)
--- NOTE | 2018-11-12 08:37 | PROGRESS NOTE ---
DATE: 11/12/2018 SUBJECTIVE: This patient grimaces with pain stimulation, and I believe she is trying to open her eyes. She is not following commands. She has been placed on comfort measures only. She is DNR level 1. Palliative Care on board. OBJECTIVE: Vital Signs: Temperature 97.5 degrees, pulse 116, respiratory rate 23, blood pressure 122/61, oxygen saturation 94% on nasal cannula. HEENT: Head normocephalic, no trauma. PERRLA. Neck: Supple. No JVD. No masses. Central trachea. Chest: Scattered crackles bilaterally. Cardiovascular: Irregular rhythm. Tachycardic. Abdomen: Soft, nontender, nondistended. No hepatosplenomegaly. Extremities: 1+ lower extremity edema. LABORATORY: No lab work done today. ASSESSMENT AND PLAN: 1. Status post cardiac arrest secondary to cardiomyopathy, probably myocardial ischemia. She had a cardiac arrest 11 days ago, and since then she remains encephalopathic, likely an anoxic brain injury. She is at this moment comfort measures only. 2. Cardiomyopathy as above. 3. Encephalopathy with likely anoxic brain injury. Continue with same management. 4. Acute hypoxemic respiratory failure. She has been extubated already. 5. Acute kidney injury. Aware. Nephrology on board. No intervention. 6. Hypernatremia. Aware. 7. Possible underlying dementia. Aware. The patient has been extubated. This patient is DNR level 1, comfort measures only, Palliative Care on board. cc: Abrahan Cortes MD
[2018-11-13] MEDS: MORPHINE IV PRN ×5 (04:03→20:18)
[2018-11-13] MEDS: ATROPINE 1 % OPHTH SOLN SL PRN ×5 (04:03→16:01)
[2018-11-13] MEDS: ATIVAN IV PRN ×4 (04:03→20:18)
--- NOTE | 2018-11-13 13:55 | PROGRESS NOTE ---
DATE: 11/13/2018 SUBJECTIVE: The patient is lethargic. She seems to be comfortable. Family members at the bedside, her son and daughter. She has comfort measures only, DNR. Palliative Care on board. OBJECTIVE: Vital Signs: Temperature 98.4 degrees, pulse 134, respiratory rate 24, blood pressure 139/83, and oxygen saturation 95% on 4 L of nasal cannula. HEENT: Head normocephalic. No trauma. PERRLA. Neck: Supple. No JVD. No masses. Central trachea. Chest: Crackles bilaterally. Cardiovascular: Irregular rhythm. Tachycardic. Abdomen: Soft, nontender, and nondistended. No hepatosplenomegaly. Extremities: Trace to 1+ lower extremity edema. LABORATORY: No lab work done today. ASSESSMENT AND PLAN: 1. Status post cardiac arrest secondary to cardiomyopathy. 2. Cardiomyopathy. 3. Encephalopathy with likely anoxic brain injury. 4. Acute hypoxemic respiratory failure. 5. Acute kidney injury. 6. Hypernatremia. 7. Possible underlying dementia. PLAN: We will continue with comfort measures only. Family members at the bedside and answer all their questions. cc: Abrahan Cortes MD
[2018-11-13] MEDS ORDERED: ATROPINE 1 % OPHTH SOLN SL PRN (19:31)
[2018-11-13 19:49] VITALS: BP 83/40
--- NOTE | 2018-11-14 14:23 | DISCHARGE SUMMARY ---
ADMISSION DATE: 10/30/2018 DISCHARGE DATE: 11/13/2018 DATE OF : 11/13/2018 ADMISSION DIAGNOSES: 1. New onset congestive heart failure, presumed systolic in nature. 2. Left lower lobe pneumonia. 3. Chronic obstructive pulmonary disease exacerbation. 4. Hypertension. 5. Type 2 diabetes. 6. Nicotine dependence. 7. Cognitive dysfunction. CAUSE OF : Severe systolic congestive heart failure resulting in hypoxic respiratory failure and ultimately cardiac arrest. CONSULTATIONS: Dr. Renny Lima with Cardiology, Dr. Freedom Penny with Pulmonology, Dr. Kevin Sandhu with Gastroenterology, Dr. Chandan Valdez with Nephrology, Dr. Kavon Guerra with Infectious Disease, and Dr. Umair Gomez with Neurology. RELEVANT DIAGNOSTICS: Chest x-ray 10/29/2018: Cardiomegaly with atelectasis. Tiny infiltrate in the left lung base. Echocardiogram 10/30/2018: EF 20%. Moderate tricuspid regurgitation. Mild pulmonary hypertension. [id number] MR. Electrocardiogram 10/30/2018: Sinus rhythm with diffuse nonspecific ST and T abnormalities. Extremity venous study 11/01/2018: Essentially normal bilateral lower extremity venous study. Renal ultrasound 11/01/2018: Ascites. No evidence of obstructive uropathy. Chest x-ray 11/03/2018: Improvement in faint infiltrate in the left lung base. No new abnormality. Stable ET tube and NG tube in good position. Final chest x- ray 11/11/2018: Mild interval worsening in pulmonary edema. Support lines in good position. EEG 11/09/2018: Abnormal electroencephalogram because of low amplitude with slowing and burst suppression. HOSPITAL COURSE: Ms. Dubose is a 73-year-old female who was admitted on 10/30/2018 for new onset congestive heart failure and hypoxic respiratory failure. She is a long-time smoker and has never been diagnosed with COPD but it was felt that COPD exacerbation was likely as well. She was admitted and put on antibiotics, diuretics, and steroids. We consulted Cardiology and an echocardiogram was performed which confirmed an EF of 20% with mild pulmonary hypertension and [id number] mitral regurgitation. She did also complain of some chest discomfort so we went ahead with a CTA of the lungs which did show a left upper lobe infiltrate, right lower lung nodule, bibasilar atelectasis, and CHF. No PE was noted. We did consult with Dr. Penny who continued with the pulmonary care that was started. On 10/31/2018, at around 8 o'clock at night she got up to go to the bathroom and when she got back she became more dyspneic than normal and early in the morning on 11/01/2018 went into respiratory distress followed by respiratory arrest requiring intubation and subsequently cardiac arrest and noted to be pulseless electrical activity. She had 2 rounds of CPR and epinephrine and ROSC was achieved. She was transferred to the ICU where full ventilatory support was given. She did have an abrupt rise in her LFTs and GI was consulted and it was felt that this was essentially secondary to shock liver. At that time Ms. Dubose's condition slowly began to deteriorate, she went into renal failure with acute tubular necrosis with a BUN and creatinine that continued to rise. We consulted Dr. Valdez who followed closely with us. The patient was made a DNR by her family so dialysis was never really an option for her. Electrolytes and fluid balance was maintained as best as possible. Cardiology added a milrinone drip and we also consulted ID for pneumonia, aspiration type. She was on antibiotics the entirety of the time. It was felt that during the code, she suffered anoxic brain injury and we also consulted Dr. Gomez and an EEG was ordered which did show findings consistent with anoxic brain injury. In totality, the patient suffered a cardiac arrest and what was felt to be anoxic brain injury and never fully recovered. After multiple and long discussions with the family they ultimately decided to terminally extubate her. We consulted palliative care for a general inpatient hospice discussion. She was terminally extubated on 11/11/2018 and transferred to a private room and started on comfort care. On 11/13/2018 the patient began to decline rapidly and 2307 time of was pronounced and the patient was released to the home of the family's choosing. DISCHARGE TIME: Greater than 35 minutes. Dictated by GREGORY Bassett for Abrahan Cortes MD cc: GREGORY Bassett MD James E. Boyle, MD Eston G. Norwood III, MD Ray Roth MD William D. Denney, MD Michael Kelso, MD Reginald D. Gladish, MD
== END 2018-11-13 21:00 | disposition expired | DRG 207 ==
LOC: SUPCPDRO → ED 21:04 → EDIPHOLD 10-30 02:08 → SUATTDRO 10-30 02:08 → 4N 10-30 07:38 → ICU 11-01 02:44 → 3N 11-12 10:09
PROVIDERS: ATTEND Internal Medicine
CPT/HCPCS: 31500; 36569; 71010; 71020; 71045; 71046; 71275; 76770; 80048; 80053; 80069; 80076; 81001; 82550; 82553; 82570; 82805; 82948; 83036; 83735; 83880; 84100; 84132; 84134; 84145; 84156; 84300; 84443; 84484; 84540; 85025; 85027; 85379; 85610; 85730; 87040; 87070; 87088; 87205; 92950; 93005; 93010; 93306; 93970; 94002; 94003; 94640; 94761; 94799; 95816; 96365; 96367; 96372; 96375; 99285; A9270; C9113; J0171; J0330; J0456; J0610; J0692; J0696; J1250; J1650; J1940; J1956; J2020; J2060; J2250; J2260; J2270; J2370; J2920; J2930; J3370; J3430; J3475; J3480; J7030; J7040; J7050; J7070; J7506; J7512; P9047; Q9967; S0164; XXXXX